=== PATIENT | male | born 1965 | race African-American/Black ===

== ENCOUNTER 2018-04-22 19:33 | Emergency (ER) | payer OTHER ==
--- NOTE | 2018-04-22 21:00 | EDPHYS ---
Physician Documentation [facility] Name: Chang Carty Age: 52 yrs Sex: Male : 1965 Arrival Date: 04/22/2018 Time: 19:35 Bed 12 Private MD: Victor Hugo Howe R ED Physician Delroy Arboleda HPI: 04/22 20:50 This 52 yrs old Black Male presents to ER via Wheelchair with complaints of Right Leg pm1 Injury, Right Leg Pain. 20:50 The patient presents with pain, that is acute. The complaints affect the right inner pm1 thigh. Context: The problem was sustained outdoors, resulted from the patient tripping, on a curb, the patient can fully bear weight, the patient is able to ambulate. Onset: The symptoms/episode began/occurred 2 day(s) ago. Modifying factors: the symptoms are aggravated by movement, weight bearing. Associated signs and symptoms: Pertinent negatives calf tenderness, numbness, swelling, tingling. Treatment prior to arrival includes: over the counter medications, hydrocodone and flexeril. Severity of symptoms: in the emergency department the symptoms are unchanged, despite pain medications - hydrocodone and flexeril. The patient has not experienced similar symptoms in the past. The patient has not recently seen a physician, has an appointment scheduled, Dr. Bernstein in a few days. Patient was walking and tripped on a curb with his right foot. Fell on his right hip area. Has been able to walk for the past 2 days but has pain to right groin area with walking and flexion at right hip. Historical: - Allergies: 20:00 No Known Allergies; ak1 - Home Meds: 20:00 [place] Oral [Active]; Flexeril Oral [Active]; ak1 - PMHx: 20:00 Unable to obtain; ak1 - PSHx: 20:00 None; ak1 - Immunization history:: Adult Immunizations unknown. - Social history:: Smoking status: Patient uses tobacco products, smokes one-half pack cigarettes per day. - Ebola Screening: : No symptoms or risks identified at this time. ROS: 20:50 Constitutional: Negative for fever, chills, and weight loss, Eyes: Negative for injury, pm1 pain, redness, and discharge, ENT: Negative for injury, pain, and discharge, Neck: Negative for injury, pain, and swelling, Cardiovascular: Negative for chest pain, palpitations, and edema, Respiratory: Negative for shortness of breath, cough, wheezing, and pleuritic chest pain, Abdomen/GI: Negative for abdominal pain, nausea, vomiting, diarrhea, and constipation, Back: Negative for injury and pain, : Negative for injury, bleeding, discharge, and swelling. 20:50 Skin: Negative for injury, rash, and discoloration, Neuro: Negative for headache, weakness, numbness, tingling, and seizure. 20:50 MS/extremity: Positive for pain, of the right inner thigh, Negative for decreased range of motion, deformity, swelling. Exam: 20:50 Constitutional: This is a well developed, well nourished patient who is awake, alert, pm1 and in no acute distress. Head/Face: Normocephalic, atraumatic. Eyes: Pupils equal round and reactive to light, extra-ocular motions intact. Lids and lashes normal. Conjunctiva and sclera are non-icteric and not injected. Cornea within normal limits. Periorbital areas with no swelling, redness, or edema. ENT: Nares patent. No nasal discharge, no septal abnormalities noted. Tympanic membranes are normal and external auditory canals are clear. Oropharynx with no redness, swelling, or masses, exudates, or evidence of obstruction, uvula midline. Mucous membranes moist. Neck: Trachea midline, no thyromegaly or masses palpated, and no cervical lymphadenopathy. Supple, full range of motion without nuchal rigidity, or vertebral point tenderness. No Meningismus. Chest/axilla: Normal chest wall appearance and motion. Nontender with no deformity. No lesions are appreciated. Cardiovascular: Regular rate and rhythm with a normal S1 and S2. No gallops, murmurs, or rubs. No pulse deficits. Respiratory: Lungs have equal breath sounds bilaterally, clear to auscultation and percussion. No rales, rhonchi or wheezes noted. No increased work of breathing, no retractions or nasal flaring. Abdomen/GI: Soft, non-tender, with normal bowel sounds. No distension or tympany. No guarding or rebound. No evidence of tenderness throughout. Back: No spinal tenderness. No costovertebral tenderness. Full range of motion. Skin: Warm, dry with normal turgor. Normal color with no rashes, no lesions, and no evidence of cellulitis. 20:50 Musculoskeletal/extremity: Extremities: grossly normal except: noted in the right inner thigh: tenderness, There is no evidence of decreased ROM, deformity, shortening and rotation of right leg. 20:50 Neuro: Orientation: is normal, Motor: moves all fours, Sensation: is normal, no obvious gross deficits. Vital Signs: 19:56 BP 151 / 82; Pulse 90; Resp 18; Temp 97.4(TE); Pulse Ox 97% on R/A; Weight 113.4 kg ak1 (R); Height 6 ft. 3 in. (190.50 cm) (R); Pain 10/10; 19:56 Body Mass Index 31.25 (113.40 kg, 190.50 cm) ak1 MDM: 19:39 Patient medically screened. pm1 20:57 Data reviewed: vital signs. Data interpreted: Pulse oximetry: on room air is 97 %. pm1 Interpretation: normal. 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 04/22 19:53 Order name: Hip Right 2 View XRAY pm1 Administered Medications: 21:09 Drug: morphine 4 mg Route: IM; Site: right gluteus; ak1 21:15 Follow up: Response: No adverse reaction ak1 Disposition: 04/23 05:45 Co-signature as Attending Physician, Delroy Arboleda MD I agree with the assessment and deepak plan of care. Disposition: 04/22/18 20:59 Discharged to Home. Impression: Strain of adductor muscle, fascia and tendon of right thigh. - Condition is Stable. - Discharge Instructions: Adductor Muscle Strain. - Medication Reconciliation Form, Thank You Letter, Prescription Opioid Use form. - Follow up: Emergency Department; When: As needed; Reason: Worsening of condition. Follow up: Private Physician; When: 2 - 3 days; Reason: Recheck today's complaints, Continuance of care, Re-evaluation by your physician. - Problem is new. - Symptoms have improved. Signatures: Dispatcher [employer] EDDelroy Beal MD MD cha Krenek, Amber, RN RN ak1 Marcell Wilcox, STRATIGRAPHER STRATIGRAPHER pm1 Corrections: (The following items were deleted from the chart) 04/22 21:15 20:59 04/22/2018 20:59 Discharged to Home. Impression: Strain of adductor muscle, ak1 fascia and tendon of right thigh. Condition is Stable. Forms are Medication Reconciliation Form, Thank You Letter, Antibiotic Education, Prescription Opioid Use. Follow up: Emergency Department; When: As needed; Reason: Worsening of condition. Follow up: Private Physician; When: 2 - 3 days; Reason: Recheck today's complaints, Continuance of care, Re-evaluation by your physician. Problem is new. Symptoms have improved. pm1
--- NOTE | 2018-04-22 21:00 | ER ---
Nurse's Notes [facility] Name: Chang Carty Age: 52 yrs Sex: Male : 1965 Arrival Date: 04/22/2018 Time: 19:35 Bed 12 Private MD: Victor Hugo Howe R Diagnosis: Strain of adductor muscle, fascia and tendon of right thigh Presentation: 04/22 19:57 Presenting complaint: Patient states: right hip and right groin pain for "couple of ak1 days". Transition of care: patient was not received from another setting of care. Onset of symptoms is unknown. Risk Assessment: Do you want to hurt yourself or someone else? Patient reports no desire to harm self or others. Initial Sepsis Screen: Does the patient meet any 2 criteria? No. Patient's initial sepsis screen is negative. Does the patient have a suspected source of infection? No. Patient's initial sepsis screen is negative. Note pt sees pain management doctor next week. pt takes Flexeril and [place] at home. Care prior to arrival: None. 19:57 Method Of Arrival: Wheelchair ak1 19:57 Acuity: NEYMAR 4 ak1 Triage Assessment: 20:00 General: Appears in no apparent distress. Behavior is calm, cooperative. Pain: ak1 Complains of pain in right hip. EENT: No signs and/or symptoms were reported regarding the EENT system. Neuro: No deficits noted. Cardiovascular: No deficits noted. Respiratory: No deficits noted. GI: No signs and/or symptoms were reported involving the gastrointestinal system. : No signs and/or symptoms were reported regarding the genitourinary system. Derm: No signs and/or symptoms reported regarding the dermatologic system. Musculoskeletal: Reports pain in right hip. Injury Description: fall. Historical: - Allergies: 20:00 No Known Allergies; ak1 - Home Meds: 20:00 [place] Oral [Active]; Flexeril Oral [Active]; ak1 - PMHx: 20:00 Unable to obtain; ak1 - PSHx: 20:00 None; ak1 - Immunization history:: Adult Immunizations unknown. - Social history:: Smoking status: Patient uses tobacco products, smokes one-half pack cigarettes per day. - Ebola Screening: : No symptoms or risks identified at this time. Screenin:01 Abuse screen: Denies threats or abuse. Denies injuries from another. Nutritional ak1 screening: No deficits noted. Tuberculosis screening: No symptoms or risk factors identified. Fall Risk Fall in past 12 months (25 points). Gait- Impaired (20 pts.). Assessment: 20:45 Reassessment: Patient appears in no apparent distress at this time. No changes from ak1 previously documented assessment. Patient and/or family updated on plan of care and expected duration. Pain level reassessed. Patient is alert, oriented x 3, equal unlabored respirations, skin warm/dry/pink. see triage assessment. pt returned from XRay. will continue to monitor. Vital Signs: 19:56 BP 151 / 82; Pulse 90; Resp 18; Temp 97.4(TE); Pulse Ox 97% on R/A; Weight 113.4 kg ak1 (R); Height 6 ft. 3 in. (190.50 cm) (R); Pain 10/10; 19:56 Body Mass Index 31.25 (113.40 kg, 190.50 cm) ak1 ED Course: 19:35 Patient arrived in ED. al2 19:35 Victor Hugo Howe MD is Private Physician. al2 19:39 Marcell Wilcox, JOIE is PHCP. pm1 19:39 Delroy Arboleda MD is Attending Physician. pm1 19:40 Aruna Myrick, DEIDRA is Primary Nurse. ak1 19:56 Arm band placed on Patient placed in an exam room, on a stretcher, Patient notified of ak1 wait time. 19:59 Triage completed. ak1 20:02 Patient has correct armband on for positive identification. Bed in low position. Call ak1 light in reach. Side rails up X 1. Adult w/ patient. Pulse ox on. NIBP on. 20:02 Patient did not have IV access during this emergency room visit. ak1 20:03 No provider procedures requiring assistance completed. ak1 20:29 Hip Right 2 View XRAY In Process Unspecified. EDMS 20:36 X-ray completed. Patient tolerated procedure well. Patient moved back from radiology. az Administered Medications: 21:09 Drug: morphine 4 mg Route: IM; Site: right gluteus; ak1 21:15 Follow up: Response: No adverse reaction ak1 Outcome: 20:59 Discharge ordered by . pm1 21:14 Discharged to home via wheelchair, with family. ak1 21:14 Condition: good 21:14 Discharge instructions given to patient, family, Instructed on discharge instructions, follow up and referral plans. Demonstrated understanding of instructions, follow-up care. 21:15 Patient left the ED. ak1 Signatures: Dispatcher [employer] EDMS Aruna Myrick RN RN ak1 Marcell Wilcox NP [employer]AND[employer] teresa1 Soni Vaughn2 Geetha Terrazas
[2018-04-22] MEDS ORDERED: MORPHINE 4 MG/ML SYR ONE (21:13)
--- NOTE | 2018-04-23 07:20 | RAD REPORT ---
EXAM DESCRIPTION: RAD - Hip Right 2 View - 04/22/2018 9:42 pm CLINICAL HISTORY: Nontraumatic hip and groin pain COMPARISON: None. FINDINGS: AP and frog-leg views of the right hip were obtained. There is no fracture or dislocation . No measurable degenerative change. Pubic symphysis and SI joints within normal range. Vascular shellie cifications are present. No abnormal air density or mass density seen to suspect inguinal hernia base d on plain film. IMPRESSION: Negative right hip examination for acute findings.
== END 2018-04-22 21:15 | disposition home or self-care (01) ==
LOC: ER 19:33
DX: S76.211A Strain of adductor muscle, fascia and tendon of right thigh, initial encounter (principal); W18.09XA Striking against other object with subsequent fall, initial encounter; Y93.01 Activity, walking, marching and hiking; Y92.89 Other specified places as the place of occurrence of the external cause; F17.210 Nicotine dependence, cigarettes, uncomplicated
CPT/HCPCS: 96372; 99283

== ENCOUNTER 2018-06-02 17:10 | Emergency (ER) | payer OTHER ==
[2018-06-02] MEDS ORDERED: HYDROCODONE/APAP 7.5/325 MG TAB ONE (18:14)
--- NOTE | 2018-06-02 18:33 | ER ---
Nurse's Notes [facility] Name: Chang Carty Age: 53 yrs Sex: Male : 1965 Arrival Date: 06/02/2018 Time: 17:15 Bed 12 Private MD: Victor Hugo Howe R Diagnosis: Supracondylar Humeral Fracture Presentation: 06/02 17:32 Presenting complaint: Patient states: "I slipped and fell onto tile around noon". Pt aa5 reports sent me here to get x-rays and when returning to to review x-rays his office was closed. Transition of care: patient was not received from another setting of care. Onset of symptoms was June 02, 2018. Risk Assessment: Do you want to hurt yourself or someone else? Patient reports no desire to harm self or others. Initial Sepsis Screen: Does the patient meet any 2 criteria? No. Patient's initial sepsis screen is negative. Does the patient have a suspected source of infection? No. Patient's initial sepsis screen is negative. Care prior to arrival: None. 17:32 Method Of Arrival: Wheelchair aa5 17:32 Acuity: NEYMAR 4 aa5 Historical: - Allergies: 17:34 No Known Allergies; aa5 - PMHx: 17:34 Diabetes - IDDM; CVA; Hypertension; aa5 - Immunization history:: Adult Immunizations unknown. - Social history:: Smoking status: Patient uses tobacco products, smokes one-half pack cigarettes per day. - Ebola Screening: : No symptoms or risks identified at this time. Screenin:07 Abuse screen: Denies threats or abuse. Nutritional screening: No deficits noted. la1 Tuberculosis screening: No symptoms or risk factors identified. Fall Risk None identified. Assessment: 18:06 General: Appears in no apparent distress. Behavior is calm, cooperative. Pain: la1 Complains of pain in left elbow. Neuro: Level of Consciousness is awake, alert, obeys commands, Oriented to person, place, time, situation. Cardiovascular: Capillary refill < 3 seconds Patient's skin is warm and dry. Respiratory: Airway is patent Respiratory effort is even, unlabored, Respiratory pattern is regular, symmetrical. GI: No signs and/or symptoms were reported involving the gastrointestinal system. : No signs and/or symptoms were reported regarding the genitourinary system. Musculoskeletal: Circulation, motion, and sensation intact. Capillary refill < 3 seconds, is brisk, in bilateral fingers. Range of motion: limited in left shoulder and left elbow. Vital Signs: 17:34 BP 144 / 93; Pulse 86; Resp 16 S; Temp 97.0(TE); Pulse Ox 98% on R/A; Weight 113.4 kg aa5 (R); Height 6 ft. 3 in. (190.50 cm) (R); Pain 10/10; 17:34 Body Mass Index 31.25 (113.40 kg, 190.50 cm) aa5 ED Course: 17:15 Patient arrived in ED. dl4 17:15 Victor Hugo Howe MD is Private Physician. dl4 17:32 Arm band placed on. aa5 17:34 Triage completed. aa5 17:40 [facility] kb 17:40 Donavon Fisher MD is Attending Physician. kb 17:41 Darci Verde, DEIDRA is Primary Nurse. la1 18:08 Call light in reach. la1 18:30 Orthoglass splint: CMS Intact and capillary refill less than 2. ag 18:39 No provider procedures requiring assistance completed. Patient did not have IV access la1 during this emergency room visit. Administered Medications: 18:06 Drug: [place] (7.5 mg-325 mg) 1 tabs Route: PO; la1 18:32 Follow up: Response: No adverse reaction; Pain is decreased ss Outcome: 18:33 Discharge ordered by MD. kb 18:39 Discharged to home via wheelchair. la1 18:39 Condition: stable 18:39 Discharge instructions given to patient, Instructed on discharge instructions, follow up and referral plans. medication usage, Demonstrated understanding of instructions, follow-up care, medications, Prescriptions given X 1. 18:39 Patient left the ED. la1 Signatures: Alana Knox FNP-C FNP-Ckb Calderon, Audri, RN RN aa5 Massiel Farrell RN RN ss Darci Verde RN RN la1 Jaleesa Marley David dl4 Corrections: (The following items were deleted from the chart) 17:38 17:32 Presenting complaint: Patient states: "I slipped and fell onto tile around noon". aa5 Pt reports sent me here to get x-rays and when returning to to review x-rays his office was closed. aa5
--- NOTE | 2018-06-02 18:33 | EDPHYS ---
Physician Documentation [facility] Name: Chang Carty Age: 53 yrs Sex: Male : 1965 Arrival Date: 06/02/2018 Time: 17:15 Bed 12 Private MD: Victor Hugo Howe R ED Physician Donavon Fisher HPI: 06/02 18:28 This 53 yrs old Black Male presents to ER via Wheelchair with complaints of Arm Injury. kb 18:28 The patient or guardian complains of decreased range of motion, injury, pain, that is kb acute, swelling, tenderness. The complaints affect the left elbow. Context: The problem was sustained at home, resulted from a fall. Onset: The symptoms/episode began/occurred at 12:00. Treatment prior to arrival includes: no previous treatment. Modifying factors: The symptoms are alleviated by nothing. the symptoms are aggravated by bending arm. Associated signs and symptoms: Pertinent positives: decreased range of motion, pain, swelling. Severity of symptoms: At their worst the symptoms were moderate, in the emergency department the symptoms are unchanged. The patient has not experienced similar symptoms in the past. The patient has been recently seen by a physician: the patient's primary care provider, with similar presenting complaints. Pt fell today at 1200 onto left elbow. Went to PCP and had outpatient x-ray done, but PCP's office was closed when he went to get results. . Historical: - Allergies: 17:34 No Known Allergies; aa5 - PMHx: 17:34 Diabetes - IDDM; CVA; Hypertension; aa5 - Immunization history:: Adult Immunizations unknown. - Social history:: Smoking status: Patient uses tobacco products, smokes one-half pack cigarettes per day. - Ebola Screening: : No symptoms or risks identified at this time. ROS: 18:25 Constitutional: Negative for fever, chills, and weight loss, Neck: Negative for injury, kb pain, and swelling, Cardiovascular: Negative for chest pain, palpitations, and edema, Respiratory: Negative for shortness of breath, cough, wheezing, and pleuritic chest pain, Abdomen/GI: Negative for abdominal pain, nausea, vomiting, diarrhea, and constipation, Skin: Negative for injury, rash, and discoloration, Neuro: Negative for headache, weakness, numbness, tingling, and seizure. 18:25 MS/extremity: Positive for injury or acute deformity, decreased range of motion, pain, swelling, tenderness, of the left elbow. Exam: 18:25 Constitutional: This is a well developed, well nourished patient who is awake, alert, kb and in no acute distress. Head/Face: Normocephalic, atraumatic. Chest/axilla: Normal chest wall appearance and motion. Nontender with no deformity. No lesions are appreciated. Cardiovascular: Regular rate and rhythm with a normal S1 and S2. No gallops, murmurs, or rubs. Normal PMI, no JVD. No pulse deficits. Respiratory: Lungs have equal breath sounds bilaterally, clear to auscultation and percussion. No rales, rhonchi or wheezes noted. No increased work of breathing, no retractions or nasal flaring. Abdomen/GI: Soft, non-tender, with normal bowel sounds. No distension or tympany. No guarding or rebound. No evidence of tenderness throughout. Skin: Warm, dry with normal turgor. Normal color with no rashes, no lesions, and no evidence of cellulitis. 18:25 Musculoskeletal/extremity: Extremities: grossly normal except: noted in the left elbow: decreased ROM, pain, swelling, tenderness, ROM: limited active range of motion, in the left arm and left elbow, Circulation is intact in all extremities. Sensation intact. 18:25 Neuro: Orientation: is normal, to person, place, time \T\ situation. Mentation: is normal, Memory: is normal, Motor: no acute changes, neuro exam limited due to previous CVA. Pt reports decreased ROM in elbow from normal. 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 . Vital Signs: 17:34 BP 144 / 93; Pulse 86; Resp 16 S; Temp 97.0(TE); Pulse Ox 98% on R/A; Weight 113.4 kg aa5 (R); Height 6 ft. 3 in. (190.50 cm) (R); Pain 10/10; 17:34 Body Mass Index 31.25 (113.40 kg, 190.50 cm) aa5 MDM: 17:40 Patient medically screened. kb 18:28 Data reviewed: vital signs, nurses notes. Data interpreted: Pulse oximetry: on room air kb is 98 %. Interpretation: normal. 18:31 Counseling: I had a detailed discussion with the patient and/or guardian regarding: the kb historical points, exam findings, and any diagnostic results supporting the discharge/admit diagnosis, radiology results, the need for outpatient follow up, a orthopedic surgeon, to return to the emergency department if symptoms worsen or persist or if there are any questions or concerns that arise at home. 06/02 18:01 Order name: Sling; Complete Time: 18:32 kb 06/02 18:01 Order name: Splint - Elbow - Posterior; Complete Time: 18:32 kb Administered Medications: 18:06 Drug: [place] (7.5 mg-325 mg) 1 tabs Route: PO; la1 18:32 Follow up: Response: No adverse reaction; Pain is decreased ss Disposition: 19:06 Co-signature as Attending Physician, Donavon Fisher MD. rn Disposition: 06/02/18 18:33 Discharged to Home. Impression: Supracondylar Humeral Fracture. - Condition is Stable. - Discharge Instructions: Humerus Fracture Treated With Immobilization, [id number]. - Prescriptions for Tylenol- Codeine #3 300-30 mg Oral Tablet - take 1 tablet by ORAL route every 6 hours As needed; 15 tablet. - Medication Reconciliation Form, Thank You Letter, Antibiotic Education, Prescription Opioid Use form. - Follow up: Emergency Department; When: As needed; Reason: Worsening of condition. Follow up: Private Physician; When: 2 - 3 days; Reason: Recheck today's complaints, Continuance of care, Re-evaluation by your physician. Signatures: Alana Knox, REFINING SUPERVISOR-C REFINING SUPERVISOR-Ckb Donavon Fisher MD MD rn Calderon, Audri RN RN aa5 Darci Verde RN RN la1 Massiel Farrell RN ss Corrections: (The following items were deleted from the chart) 18:39 18:33 06/02/2018 18:33 Discharged to Home. Impression: Supracondylar Humeral Fracture. la1 Condition is Stable. Forms are Medication Reconciliation Form, Thank You Letter, Antibiotic Education, Prescription Opioid Use. Follow up: Emergency Department; When: As needed; Reason: Worsening of condition. Follow up: Private Physician; When: 2 - 3 days; Reason: Recheck today's complaints, Continuance of care, Re-evaluation by your physician. kb
== END 2018-06-02 18:39 | disposition home or self-care (01) ==
LOC: ER 17:10
PROC: 2W39X1Z Immobilization of Left Upper Extremity using Splint (ICD-10-PCS; principal; 2018-06-02)
DX: S42.412A Displaced simple supracondylar fracture without intercondylar fracture of left humerus, initial encounter for closed fracture (principal); W01.0XXA Fall on same level from slipping, tripping and stumbling without subsequent striking against object, initial encounter; Y92.009 Unspecified place in unspecified non-institutional (private) residence as the place of occurrence of the external cause; F17.210 Nicotine dependence, cigarettes, uncomplicated
CPT/HCPCS: 99283

== ENCOUNTER 2020-04-24 11:26 | Emergency (ER) | payer OTHER ==
--- OUTSIDE RECORDS SUMMARY | 2020-04-24 11:30 | XMS REPORT | Continuity of Care Document ---
:1965 Author Organization [facility] t Address [address] [place] [address] Care Team Providers Name Role Phone Jeremy GARCIA Primary Care Physician Valencia Briceno Attending Clinician Doctor Unassigned, Name Attending Clinician Unavailable Polly GARICA Attending Clinician Payers Payer Name Policy Type Policy Effective Expiration Source Number Date Date TEXANPLUSTEXANPLUS [id number] 2018 Roshan read [id number] 2018-Pr 00:00:00 M ethodist esentHMO Problems Condition Condition Condition Status Onset Resolution Last Treating Co mments Source Name Details Category Date Date Treatment Clinician Date Post-opera Post-opera Disease Active [place] tive state tive state 2-09 Me thodi 00:00: st 00 Closed Closed Disease Active [place] fracture fracture 2-07 Method i of left of left 00:00: st distal distal 00 humerus humerus Closed Closed Disease Active [place] supracondy supracondy 1-30 Me thodi lar lar 00:00: st fracture fracture 00 of left of left elbow elbow Allergies, Adverse Reactions, Alerts Allergy Allergy Status Severity Reaction(s) Onset Inactive Treating Comm ents Source Name Type Date Date Clinician Penicill Propensi Active Nausea Roshan read ins ty to 1-30 and Methodi adverse 00:00: vomiting st reaction 00 s to drug Family History Family Member Diagnosis Comments Start Date Stop Date Source Natural brother Diabetes [facility] [place] [place] ethodist Natural father Heart disease [place] Yazdan[place] Natural mother Diabetes [facility] thodist Natural mother Heart disease Humberto Sylvester Social History Social Habit Start Date Stop Date Quantity Comments Source History of tobacco Current smoker [place] use History [facility] Meth odist Alcohol Std Drinks History [facility] Meth odist Alcohol Binge Sex Assigned At [facility] [place] [place] ethodist Cigarettes smoked 2019-07-22 2019-07-22 Humberto Sylvester current (pack per 00:00:00 00:00:00 day) - Reported Cigarette 2019-07-22 2019-07-22 Humberto Dubois ist pack-years 00:00:00 00:00:00 Tobacco use and 2019-07-22 2019-07-22 Never used Paul Akbar ethodist exposure 00:00:00 00:00:00 Alcohol intake 2019-07-22 2019-07-22 Current Paul thodist 00:00:00 00:00:00 non-drinker of alcohol (finding) History SDAZ 2018-07-02 2018-07-02 1 Humberto Griffin odist Alcohol Frequency 00:00:00 00:00:00 Smoking Status Start Date Stop Date Source Former smoker 2019-07-22 00:00:00 2019-07-22 00:00:00 Humberto Sylvester Medications Ordered Filled Start Stop Current Ordering Indication Dosage Frequency Signature Comments Components Source Medication Medication Date Date Medication? Clinician (SIG) Name Name lisinopril 2020-0 Yes 20mg Q.5D Take 20 mg [place] (PRINIVIL,Z - by mouth 2 Me thodi ESTRIL) 20 10:56: (two) st mg tablet 19 times a day. amLODIPine 2020-0 Yes 10mg QD Take 10 mg [place] (NORVASC) - by mouth Method i 10 mg 10:56: every st tablet 19 morning. metoprolol 2020-0 Yes 50mg Q.5D Take 50 mg [place] tartrate 2-26 by mouth 2 Metho di (LOPRESSOR) 10:56: (two) st 50 mg 19 times a tablet day. clopidogrel 2020-0 Yes 75mg QD Take 75 mg Paul (PLAVIX) 75 2-26 by mouth Meth denia mg tablet 10:56: daily. st 19 simvastatin 2020-0 Yes 40mg QD Take 40 mg Paul (ZOCOR) 40 2- by mouth Metho di MG tablet 10:56: nightly. st 19 aspirin 2020-0 Yes 81mg QD Take 81 mg [place] (ECOTRIN) 2-26 by mouth Method i 81 MG 10:56: daily. st enteric 19 coated tablet NOVOLOG 2020-0 Yes [id number] Inject Roddy billings U-100 2-26 [id number] under the Met hodi INSULIN 10:56: 3D skin 3 st ASPART SUBQ 19 (three) times a day with meals. Sliding scale insulin insulin 2020-0 Yes 25U QD Inject 25 [place] on detemir 2-26 Units Methodi (LEVEMIR 10:56: under the st U-100 19 skin every INSULIN morning. SUBQ) Procedures This patient has no known procedures. Plan of Care Planned Activity Planned Date Details Comments Source Future Scheduled 2019-12-26 INFLUENZA VACCINE [place] [facility] Test 00:00:00 [code = INFLUENZA VACCINE] Future Scheduled 2017 COLONOSCOPY SCREENING [place] [facility] Test 00:00:00 [code = COLONOSCOPY SCREENING] Future Scheduled 2017 SHINGLES VACCINES [place] [facility] 00:00:00 (#1) [code = SHINGLES VACCINES (#1)] Encounters Start End Encounter Admission Attending Care Care Encounter Source Date/Time Date/Time Type Type Clinicians Facility Department ID 2019-08-02 2019-08-02 Emergency Annia, [place] [facility] [id number] 16:58:18 18:02:00 Valencia Lara [id number] [place] [id number] [place] [id number] 2019-08-02 2019-08-02 Orders Doctor AUGIE [id number] 00:00:00 00:00:00 Only Unassigned, SAMANTHA [id number] [place] [facility] [id number] 2019-07-22 2019-07-22 Outpatient POLLY [facility] [id number] [address] [place] [address] 00:00:00 00:00:[address] PAM [address] Results This patient has no known results.
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
[2020-04-24] MEDS ORDERED: DIAZEPAM 5 MG TABLET ONE (13:06)
[2020-04-24] MEDS ORDERED: KETOROLAC 30 MG/ML INJ ONE (13:06)
--- NOTE | 2020-04-24 13:36 | RAD REPORT ---
EXAM DESCRIPTION: RAD - Lumbar Spine 3 Views - 04/24/2020 1:28 pm CLINICAL HISTORY: fall COMPARISON: No comparisons FINDINGS: A three-view lumbar spine examination was performed. Lumbar bodies are normal in height and normal in AP alignment. There is a mild right lateral tilt of the lumbar spine as part of a mild right convex thoracolumbar rotoscoliosis. No fracture or acute bon y process seen. No disc space narrowing. Endplate spurring seen most prominent anterior L5. Patient h as prominent mid and lower lumbar facet joint degenerative change. No pars defects identified. IMPRESSION: Lumbar spine degenerative changes are present as detailed. No fracture or acute finding seen.
--- NOTE | 2020-04-24 13:37 | RAD REPORT ---
EXAM DESCRIPTION: RAD - Pelvis - 04/24/2020 1:28 pm CLINICAL HISTORY: fall COMPARISON: No comparisons TECHNIQUE: AP imaging of the pelvis was obtained. FINDINGS: No fracture of the bony pelvis. No fracture, dislocation or other acute hip joint finding. No significant SI joint findings. No soft tissue abnormality. IMPRESSION: Negative pelvis for acute or significant findings.
--- NOTE | 2020-04-24 13:43 | RAD REPORT ---
EXAM DESCRIPTION: RAD - Hip Left 2 View - 04/24/2020 1:28 pm CLINICAL HISTORY: hip pain COMPARISON: No comparisons FINDINGS: AP and frogleg views of the left hip were obtained. There is no fracture or dislocation. No acute or destructive bony process seen. No suspicious soft tissue finding. Arterial calcifications are present more prominent than typically seen. IMPRESSION: Negative left hip examination for acute findings.
--- NOTE | 2020-04-24 14:35 | EDPHYS ---
Physician Documentation [facility] Name: Chang Carty Age: 54 yrs Sex: Male : 1965 Arrival Date: 04/24/2020 Time: 11:31 Bed 17 Private MD: ED Physician Donavon Fisher HPI: 04/24 12:11 This 54 yrs old Black Male presents to ER via Wheelchair with complaints of Back Pain, jmm Elbow Injury - swelling. 12:11 The patient presents with pain that is acute. Onset: The symptoms/episode jmm began/occurred acutely, yesterday. The pain does not radiate. This is a 54 year old male with a history of cva, dm, htn that presents to the ED with complaints left elbow pain, left sided back pain and left hip pain after slipping and falling on his left side. Denies head injury. This occurred yesterday. . Historical: - Allergies: 12:01 PENICILLINS; iw - PMHx: 12:01 CVA; Diabetes - IDDM; Hypertension; iw - PSHx: 12:02 left arm; iw - Immunization history:: Adult Immunizations not up to date. - Social history:: Smoking status: Patient reports the use of cigarette tobacco products, smokes one-half pack cigarettes per day. ROS: 12:11 Constitutional: Negative for fever, chills, and weight loss, Cardiovascular: Negative jmm for chest pain, palpitations, and edema, Respiratory: Negative for shortness of breath, cough, wheezing, and pleuritic chest pain. 12:11 Back: Positive for pain with movement. 12:11 All other systems are negative. Exam: 12:11 Constitutional: This is a well developed, well nourished patient who is awake, alert, jmm and in no acute distress. Head/Face: atraumatic. Eyes: EOMI, no conjunctival erythema appreciated ENT: Moist Mucus Membranes Neck: Trachea midline, Supple Chest/axilla: Normal chest wall appearance and motion. Cardiovascular: Regular rate and rhythm. No edema appreciated Respiratory: Normal respirations, no respiratory distress appreciated Abdomen/GI: Non distended, soft 12:11 Back: vertebral tenderness, is not appreciated, left sided paraspinal tenderness noted . 12:11 Musculoskeletal/extremity: FROM appreciated to the left elbow, supracondylar ttp, full radial pulse, full spotter, NVI. 12:11 Skin: Appearance: Color: normal in color. 12:11 Neuro: Orientation: is normal, Mentation: is normal, Memory: is normal. 12:11 Psych: Behavior/mood is pleasant, cooperative. Vital Signs: 11:56 BP 139 / 76; Pulse 78; Resp 16 S; Temp 97.8(TE); Pulse Ox 97% on R/A; Weight 114.76 kg; iw Height 6 ft. 3 in. (190.50 cm); Pain 7/10; 12:45 BP 129 / 75; Pulse 76; Resp 17; Pulse Ox 97% ; rb3 14:00 BP 131 / 78; Pulse 72; Resp 18; Pulse Ox 100% ; rb3 14:46 BP 127 / 86; Pulse 72; Resp 16 S; Pulse Ox 100% on R/A; ca1 11:56 Body Mass Index 31.62 (114.76 kg, 190.50 cm) iw MDM: 12:11 Patient medically screened. [facility] 14:33 Data reviewed: vital signs, nurses notes. Counseling: I had a detailed discussion with tracey the patient and/or guardian regarding: the historical points, exam findings, and any diagnostic results supporting the discharge/admit diagnosis, radiology results, the need for outpatient follow up, to return to the emergency department if symptoms worsen or persist or if there are any questions or concerns that arise at home. ED course: Patient is alert and non toxic in appearance in the ED. Patient is advised to follow up with pcp for reevaluation. Patient is otherwise given strict return precautions. Patient understood and agrees with the plan of care. . 04/24 12:15 Order name: Pelvis XRAY; Complete Time: 13:50 [facility] 04/24 12:15 Order name: Hip Left 2 View XRAY; Complete Time: 13:50 [facility] 04/24 12:15 Order name: Lumbar Spine (3 Views) XRAY; Complete Time: 13:50 [facility] Administered Medications: 12:57 Drug: Ketorolac 30 mg Route: IM; Site: right deltoid; rb3 12:57 Drug: Valium 5 mg Route: PO; rb3 Disposition: 15:42 Co-signature as Attending Physician, Donavon Fisher MD. rn Disposition: 04/24/20 14:34 Discharged to Home. Impression: Strain of muscle and tendon of back wall of thorax, Strain of muscle, fascia and tendon of abdomen, lower back and pelvis, Contusion of left elbow. - Condition is Stable. - Discharge Instructions: Muscle Strain, Thoracic Strain. - Prescriptions for orphenadrine citrate 100 mg Oral Tablet Sustained Release - take 1 tablet by ORAL route 2 times per day As needed; 20 tablet. - Medication Reconciliation Form, Thank You Letter, Antibiotic Education, Prescription Opioid Use form. - Follow up: Private Physician; When: 2 - 3 days; Reason: Recheck today's complaints, Continuance of care, Re-evaluation by your physician. Signatures: Dispatcher [employer] EDMS Arie Vega PA PA jmm Williams, Irene, DEIDRA RN iw Donavon Fisher MD MD rn Acob, Mary RN RN ca1 Lou Hutson RN RN rb3 Corrections: (The following items were deleted from the chart) 14:50 14:34 04/24/2020 14:34 Discharged to Home. Impression: Strain of muscle and tendon of ca1 back wall of thorax; Strain of muscle, fascia and tendon of abdomen, lower back and pelvis; Contusion of left elbow. Condition is Stable. Forms are Medication Reconciliation Form, Thank You Letter, Antibiotic Education, Prescription Opioid Use. Follow up: Private Physician; When: 2 - 3 days; Reason: Recheck today's complaints, Continuance of care, Re-evaluation by your physician. tracey
--- NOTE | 2020-04-24 14:35 | ER ---
Nurse's Notes [facility] Name: Chang Carty Age: 54 yrs Sex: Male : 1965 Arrival Date: 04/24/2020 Time: 11:31 Bed 17 Private MD: Diagnosis: Strain of muscle and tendon of back wall of thorax;Strain of muscle, fascia and tendon of abdomen, lower back and pelvis;Contusion of left elbow Presentation: 04/24 11:56 Chief complaint: Patient states: pt slipped and fell on some oil while stepping out of his truck yesterday , fell onto left side, has pain to left elbow, left lower back and left hip. Coronavirus screen: At this time, the client does not indicate any symptoms associated with coronavirus-19. Ebola Screen: Patient negative for fever greater than or equal to 101.5 degrees Fahrenheit, and additional compatible Ebola Virus Disease symptoms Patient denies exposure to infectious person. Patient denies travel to an Ebola-affected area in the 21 days before illness onset. No symptoms or risks identified at this time. Initial Sepsis Screen: Does the patient meet any 2 criteria? No. Patient's initial sepsis screen is negative. Does the patient have a suspected source of infection? No. Patient's initial sepsis screen is negative. Risk Assessment: Do you want to hurt yourself or someone else? Patient reports no desire to harm self or others. Onset of symptoms was April 23, 2020. 11:56 Method Of Arrival: Wheelchair 11:56 Acuity: NEYMAR 4 iw Historical: - Allergies: 12:01 PENICILLINS; iw - PMHx: 12:01 CVA; Diabetes - IDDM; Hypertension; iw - PSHx: 12:02 left arm; iw - Immunization history:: Adult Immunizations not up to date. - Social history:: Smoking status: Patient reports the use of cigarette tobacco products, smokes one-half pack cigarettes per day. Screenin:50 Abuse screen: Denies threats or abuse. Nutritional screening: No deficits noted. rb3 Tuberculosis screening: No symptoms or risk factors identified. Fall Risk Fall in past 12 months (25 points). Secondary diagnosis (15 points) CVA, No IV (0 pts). Ambulatory Aid- None/Bed Rest/Nurse Assist (0 pts). Gait- Normal/Bed Rest/Wheelchair (0 pts) Mental Status- Oriented to own ability (0 pts). Total Munoz Fall Scale indicates Low Risk Score (25-44 pts). Fall prevention measures have been instituted. Side Rails Up X 2 Placed close to Nursing Station 1:1 attendant Assigned to Pt. Frequent Obs/Assesments occuring As available Patient and Family Educated on Fall Prevention Program and strategies. Assessment: 11:50 General: Appears in no apparent distress. comfortable, Behavior is calm, cooperative. rb3 Pain: Complains of pain in left elbow, low back, left hip Pain currently is 7 out of 10 on a pain scale. Pain began 1 day ago. Neuro: Level of Consciousness is awake, alert, obeys commands, Oriented to person, place, time, situation. Cardiovascular: Capillary refill < 3 seconds. Respiratory: Airway is patent Respiratory effort is even, unlabored, Respiratory pattern is regular, symmetrical. GI: No signs and/or symptoms were reported involving the gastrointestinal system. : No signs and/or symptoms were reported regarding the genitourinary system. Derm: Skin is dry, Skin is normal, Skin temperature is warm. Musculoskeletal: Range of motion: limited in left arm due to previous stroke. 12:50 Reassessment: Patient appears in no apparent distress at this time. No changes from rb3 previously documented assessment. 12:58 Reassessment: Pt. is going to x-ray. rb3 14:00 Reassessment: Patient appears in no apparent distress at this time. Patient and/or rb3 family updated on plan of care and expected duration. Pain level reassessed. Patient is alert, oriented x 3, equal unlabored respirations, skin warm/dry/pink. 14:46 Reassessment: Patient appears in no apparent distress at this time. Patient is alert, ca1 oriented x 3, equal unlabored respirations, skin warm/dry/pink. Vital Signs: 11:56 BP 139 / 76; Pulse 78; Resp 16 S; Temp 97.8(TE); Pulse Ox 97% on R/A; Weight 114.76 kg; iw Height 6 ft. 3 in. (190.50 cm); Pain 7/10; 12:45 BP 129 / 75; Pulse 76; Resp 17; Pulse Ox 97% ; rb3 14:00 BP 131 / 78; Pulse 72; Resp 18; Pulse Ox 100% ; rb3 14:46 BP 127 / 86; Pulse 72; Resp 16 S; Pulse Ox 100% on R/A; ca1 11:56 Body Mass Index 31.62 (114.76 kg, 190.50 cm) ED Course: 11:31 Patient arrived in ED. as 11:49 Mary Moody, RN is Primary Nurse. ca1 11:50 Patient has correct armband on for positive identification. Bed in low position. Call rb3 light in reach. Side rails up X 1. Pulse ox on. NIBP on. 12:00 Triage completed. iw 12:01 Arm band placed on. iw 12:08 Arie Vega PA is PHCP. [facility] 12:08 Donavon Fisher MD is Attending Physician. [facility] 12:57 Lou Hutson, RN is Primary Nurse. rb3 13:28 Pelvis XRAY In Process Unspecified. EDMS 13:28 Hip Left 2 View XRAY In Process Unspecified. EDMS 13:28 Lumbar Spine (3 Views) XRAY In Process Unspecified. EDMS 14:49 No provider procedures requiring assistance completed. Patient did not have IV access ca1 during this emergency room visit. Administered Medications: 12:57 Drug: Ketorolac 30 mg Route: IM; Site: right deltoid; rb3 12:57 Drug: Valium 5 mg Route: PO; rb3 Outcome: 14:34 Discharge ordered by . [facility] 14:49 Discharged to home ambulatory. ca1 14:49 Condition: stable 14:49 Discharge instructions given to patient, Instructed on discharge instructions, Demonstrated understanding of instructions, follow-up care, medications, Prescriptions given X 1. 14:50 Patient left the ED. ca1 Signatures: Dispatcher [employer] EDMS Arie Vega PA PA jmm Martinez, Amelia as Madeleine Mathews RN RN Mary Moody RN RN ca1 Lou Hutson, DEIDRA RN rb3 Corrections: (The following items were deleted from the chart) 12:26 11:50 Musculoskeletal: Range of motion: limited in left arm rb3 rb3 14:20 13:45 BP 131 / 78; Pulse 72bpm; Resp 18bpm; Pulse Ox 100%; rb3 rb3
[2020-04-24 17:51] VITALS: TEMP 97.8
[2020-04-24 17:54] VITALS: O2SAT 100
[2020-04-24 17:56] VITALS: BP 127/86
== END 2020-04-24 14:50 | disposition home or self-care (01) ==
LOC: ER 11:26
DX: S29.012A Strain of muscle and tendon of back wall of thorax, initial encounter (principal); S39.011A Strain of muscle, fascia and tendon of abdomen, initial encounter; S39.012A Strain of muscle, fascia and tendon of lower back, initial encounter; S39.013A Strain of muscle, fascia and tendon of pelvis, initial encounter; S50.02XA Contusion of left elbow, initial encounter; E11.9 Type 2 diabetes mellitus without complications; I10 Essential (primary) hypertension; Z86.73 Personal history of transient ischemic attack (TIA), and cerebral infarction without residual deficits; Z79.4 Long term (current) use of insulin; F17.210 Nicotine dependence, cigarettes, uncomplicated; W01.0XXA Fall on same level from slipping, tripping and stumbling without subsequent striking against object, initial encounter
CPT/HCPCS: 72100; 72170; 96372; 99284

== ENCOUNTER 2023-03-01 15:59 | Emergency (ER) | payer OTHER ==
--- OUTSIDE RECORDS SUMMARY | 2023-03-01 16:05 | XMS REPORT | Continuity of Care Document ---
:1965 Author Organization [facility] t Address [address] [place] [address] Care Team Providers Name Role Phone Jeremy GARCIA, Victor Hugo Primary Care Physician [phone] RICHARD CASON Attending Clinician Unavailable Richard Cason PA-C Attending Clinician Doctor Unassigned, [place] Attending Clinician Unavailable MARLA CHOW Attending Clinician Unavailable Marla Chow DO Attending Clinician Aldair Briceno Attending Clinician PAM MATIAS Attending Clinician Unavailable Dayami-Deano_A_AH Attending Clinician Unavailable RICHARD CASON Admitting Clinician Unavailable MARLA CHOW Admitting Clinician Unavailable Dayami-Varsha_A_AH Admitting Clinician Unavailable Payers Payer Name Policy Type Policy Number Effective Date Expiration Date Hillary haynes Cocodot [id number] 2019spring 00:00:00 [facility] [place] [facility] [id number] [facility]/ADVANT AGE - HMO) Problems Condition Condition Condition Status Onset Resolution Last Treating Co mments Source Name Details Category Date Date Treatment Clinician Date Post-opera Post-opera Disease Active M ethodi tive state tive state 2 st 00:00: Hospita 00 l Closed Closed Disease Active [facility] fracture fracture [address] of left of left 00:00: Hospita distal distal 00 l humerus humerus Closed Closed Disease Active [facility] supracondy supracondy 1-30 st lar lar 00:00: Hospita fracture fracture 00 l of left of left elbow elbow Allergies, Adverse Reactions, Alerts Allergy Allergy Status Severity Reaction(s) Onset Inactive Treating Comm ents Source Name Type Date Date Clinician Julia Pate Active Nausea Method i ins ty to 1-[address] adverse 00:00: vomiting Hospita reaction 00 l s to drug PENICILL Drug Active N/V 2016-05 Univers INS Class 2-15 ity of 00:00: [place] 00 Medical Branch Penicill Propensi Active Nausea 2016-05 Univer s ins ty to and/or 2-15 ity of adverse Vomiting 00:00: [place] reaction 00 Medical s Branch Family History Family Member Diagnosis Comments Start Date Stop Date Source Natural brother Diabetes [facility] Natural father Heart disease [facility] Natural mother Diabetes [facility] Natural mother Heart disease [facility] Social History Social Habit Start Date Stop Date Quantity Comments Source History SDOH [facility] Alcohol Std Drinks Hospit al History SDAZ [facility] Alcohol Binge Hospital History of tobacco Cigarette Smoker [facility] use Hospital Alcohol intake 2019-07-22 2019-07-22 Current [facility] 00:00:00 00:00:00 non-drinker of Hospital alcohol (finding) History SDOH 2019-07-22 2019-07-22 1 [facility] Alcohol Frequency 00:00:00 00:00:00 Hospita l Tobacco use and 2018-07-02 2018-07-02 Smokeless tobacco [facility] exposure 00:00:00 00:00:00 non-user Hospital Cigarettes smoked 2018-07-02 2018-07-[address] current (pack per 00:00:00 00:00:00 Hospita l day) - Reported Cigarette 2018-07-02 2018-07-02 [facility] pack-years 00:00:00 00:00:00 Hospital Sex Assigned At [birth year] [facility] 00:00:00 00:00:00 Hospital Smoking Status Start Date Stop Date Source Ex-smoker 2018-07-02 00:00:00 2018-07-02 [facility] 2017-05-10 00:00:00 [facility] [place] [facility] Medications Ordered Filled Start Stop Current Ordering Indication Dosage Frequency Signature Comments Components Source Medication Medication Date Date Medication? Clinician (SIG) Name Name cephALEXin 2021-05- No [id number] 500mg Take 1 Univers (KEFLEX) 0-04 1012 [id number] capsule by it y of 500 mg 00:00: 04:59 mouth 4 [place] capsule 00 :00 (four) Medical times Branch daily for 7 days. ibuprofen 2020-0 Yes [id number] 600mg Take 1 U nivers 600 mg 3-08 tablet by ity of tablet 00:00: mouth [place] 00 every 6 Medical (six) Branch hours as needed for Pain (scale 4-6). ibuprofen 2020-0 Yes [id number] 600mg Take 1 U nivers 600 mg 3-08 tablet by ity of tablet 00:00: mouth [place] 00 every 6 Medical (six) Branch hours as needed for Pain (scale 4-6). ibuprofen 2020-0 Yes [id number] 600mg Take 1 U nivers 600 mg 3-08 tablet by ity of tablet 00:00: mouth [place] 00 every 6 Medical (six) Branch hours as needed for Pain (scale 4-6). lisinopril 2020-0 Yes 20mg Q.5D Take 20 mg M ethodi (PRINIVIL,Z 2-[address] ESTRIL) 20 10:56: (two) Hospit a mg tablet 19 times a l day. amLODIPine 2020-0 Yes 10mg QD Take 10 mg M ethodi (NORVASC) 2-[address] 10 mg 10:56: every Hospita tablet 19 morning. l metoprolol 2020-0 Yes 50mg Q.5D Take 50 mg M ethodi tartrate 2-[address] (LOPRESSOR) 10:56: (two) Hospi ta 50 mg 19 times a l tablet day. clopidogrel 2020-0 Yes 75mg QD Take 75 mg Methodi (PLAVIX) 75 2-[address] mg tablet 10:56: daily. Hospit a 19 l simvastatin 2020-0 Yes 40mg QD Take 40 mg Methodi (ZOCOR) 40 2-[address] MG tablet 10:56: nightly. Hosp shila 19 l aspirin 2020-0 Yes 81mg QD Take 81 mg Meth denia (ECOTRIN) 2-[address] 81 MG 10:56: daily. Hospita enteric 19 l coated tablet NOVOLOG 2020-0 Yes [id number] Inject Me thodi U-100 2-[id number] INSULIN 10:56: 3D skin 3 Hospita ASPART SUBQ 19 (three) l times a day with meals. Sliding scale insulin insulin Yes 25U QD Inject 25 Metho di detemir 2-[address] (LEVEMIR 10:56: under the Hosp shila U-100 19 skin every l INSULIN morning. SUBQ) acetaminoph Yes [id number] 1{tbl} Take 1 Univers en-codeine 1-11 [id number] tablet by it y of (TYLENOL-CO 00:00: mouth [place] DEINE #3) 00 every 4 Medical 300-30 mg (four) Branch tablet hours as needed for Pain (scale 4-6) or Pain (scale 7-10). acetaminoph Yes [id number] 1{tbl} Take 1 Univers en-codeine 1-11 [id number] tablet by it y of (TYLENOL-CO 00:00: mouth [place] DEINE #3) 00 every 4 Medical 300-30 mg (four) Branch tablet hours as needed for Pain (scale 4-6) or Pain (scale 7-10). acetaminoph Yes [id number] 1{tbl} Take 1 Univers en-codeine 1-11 [id number] tablet by it y of (TYLENOL-CO 00:00: mouth [place] DEINE #3) 00 every 4 Medical 300-30 mg (four) Branch tablet hours as needed for Pain (scale 4-6) or Pain (scale 7-10). aspirin 81 2016-05 Yes 81mg Take 81 mg U nivers mg chewable 2-15 by mouth ity of tablet 11:49: daily. [address] aspirin 81 2016-05 Yes 81mg Take 81 mg U nivers mg chewable 2-15 by mouth ity of tablet 11:49: daily. [address] aspirin 81 2016-05 Yes 81mg Take 81 mg U nivers mg chewable 2-15 by mouth ity of tablet 11:49: daily. [address] cyclobenzap 2016-05 Yes Univer s rine 10 mg 2-07 ity of tablet 00:00: [address] HYDROcodone 2016-05 Yes TK 1 T PO U nivers -acetaminop 2-07 QID ity of hen 10-325 00:00: [place] mg tablet 00 [facility] traMADOL 50 2016-05 Yes Univer s mg tablet 2-07 ity of 00:00: [place] 00 Medical Branch cyclobenzap 2016-05 Yes Univer s rine 10 mg 2-07 ity of tablet 00:00: [place] [facility] Branch HYDROcodone 2016-05 Yes TK 1 T PO U nivers -acetaminop 2-07 QID ity of hen 10-325 00:00: [place] mg tablet 00 Medical Branch traMADOL 50 2016-05 Yes Univer s mg tablet 2-07 ity of 00:00: [place] [facility] cyclobenzap 2016-05 Yes Univer s rine 10 mg 2-07 ity of tablet 00:00: [place] [facility] HYDROcodone 2016-05 Yes TK 1 T PO U nivers -acetaminop 2-07 QID ity of hen 10-325 00:00: [place] mg tablet Medical [place] traMADOL 50 2016-05 Yes Univer s mg tablet 2-07 ity of 00:00: [place] [facility] amLODIPine 2016-05 Yes Univers 10 mg 2-05 ity of tablet 00:00: [place] [facility] amLODIPine 2016-05 Yes Univers 10 mg 2-05 ity of tablet 00:00: [place] [facility] amLODIPine 2016-05 Yes Univers 10 mg 2-05 ity of tablet 00:00: [address] Branch NOVOLOG 100 2016-05 Yes Univer s unit/mL 1-29 ity of solution 00:00: [address] Branch NOVOLOG 100 2016-05 Yes Univer s unit/mL 1-29 ity of solution 00:00: [place] [facility] NOVOLOG 100 2016-05 Yes Univer s unit/mL 1-29 ity of solution 00:00: [place] [facility] clopidogrel 2016-05 Yes Univer s 75 mg 1-13 ity of tablet 00:00: [place] [facility] lisinopril 2016-05 Yes Univers 20 mg 1-13 ity of tablet 00:00: [address] Branch simvastatin 2016-05 Yes Univer s 40 mg 1-13 ity of tablet 00:00: [address] Branch clopidogrel 2016-05 Yes Univer s 75 mg 1-13 ity of tablet 00:00: [place] [facility] lisinopril 2016-05 Yes Univers 20 mg 1-13 ity of tablet 00:00: [address] simvastatin Yes Univer s 40 mg 1-13 ity of tablet 00:00: [facility] clopidogrel 2016- Yes Univer s 75 mg 1-13 ity of tablet 00:00: [place] [facility] lisinopril 2016- Yes Univers 20 mg 1-13 ity of tablet 00:00: [place] [facility] simvastatin 2016- Yes Univer s 40 mg 1-13 ity of tablet 00:00: [place] [facility] metoprolol 0 Yes Univers tartrate 50 9-26 ity of mg tablet 00:00: [place] [facility] metoprolol Yes Univers tartrate 50 9-26 ity of mg tablet 00:00: [place] [facility] metoprolol Yes Univers tartrate 50 9-26 ity of mg tablet 00:00: [address] Vital Signs Vital Name Observation Time Observation Value Comments Source Systolic blood 2022-02-27 14:39:00 168 mm[Hg] Univer sity of pressure [facility] Diastolic blood 2022-02-27 14:39:00 81 mm[Hg] Unive rsity of [facility] Heart rate 2022-02-27 14:39:00 73 /min [facility] Body temperature 2022-02-27 14:39:00 36.17 [facility] Respiratory rate 2022-02-27 14:39:00 22 /min [facility] Body weight 2022-02-27 14:39:00 112.492 kg [facility] BMI 2022-02-27 14:39:00 31.00 kg/m2 [facility] Oxygen saturation in 2022-02-27 14:39:00 100 /min [facility] blood by [facility] Pulse oximetry Branch Procedures Procedure Date / Time Performed Performing Clinician Em e XR HIPS 2 VW LEFT 2022-09-04 18:23:42 Richard Cason [facility] ASSIGNMENT OF BENEFITS 2022-09-04 17:55:58 Doctor Unassigned, No [facility] XR WRIST 3+ VW LEFT 2022-02-27 15:01:12 [facility] CONSENT/REFUSAL FOR 2022-02-27 14:30:11 [facility] Branch TREATMENT Plan of Care Planned Activity Planned Date Details Comments Source Future Scheduled 2022-09-05 COVID-19 VACCINE (#1) [facility] Hospital Test 11:36:33 [code = COVID-19 VACCINE (#1)] Future Scheduled 2022-09-05 COLONOSCOPY SCREENING [facility] Hospital Test 11:36:33 [code = COLONOSCOPY SCREENING] Future Scheduled 2022-09-05 SHINGLES VACCINES (1 [facility] Test 11:36:33 of 2) [code = SHINGLES VACCINES (1 of 2)] Future Scheduled 2022-09-05 INFLUENZA VACCINE [facility] Hospital Test 11:36:33 [code = INFLUENZA VACCINE] Encounters Start End Encounter Admission Attending Care Care Encounter Source Date/Time Date/Time Type Type Clinicians Facility Department ID 2021-03-23 Emergency [facility] [id number] Univers 13:12:12 ity [facility] 2022-09-04 2022-09-04 Outpatient [facility] [id number] Univers 12:58:30 23:59:00 ity of [facility] 2022-09-04 2022-09-04 [facility] [id number] Univers 12:58:30 23:59:00 Encounter ANGLEELGIN [id number] ity of [place] [id number] [facility] [id number] [facility] 807 Branch 2022-09-04 2022-09-04 Orders Doctor AUGIE [id number] Univers 00:00:00 00:00:00 Only Unassigned, SAMANTHA [id number] ity of [place] [facility] [id number] [facility] [id number] [facility] 009 Branch 2022-02-27 2022-02-27 [facility] [id number] Univers 09:42:00 11:34:00 MARLA ity [facility] 2022-02-27 2022-02-27 Vinod Chow [facility] [id number] Univers 09:42:00 11:34:00 Marla LARA [id number] [facility] [id number] [facility] [id number] [facility] 084 Branch 2019-08-02 2019-08-02 Emergency Aldair Milner [facility] [id number] 16:58:18 18:02:00 [place] Lara [id number] [place] [id number] [place] [id number] 2019-08-02 2019-08-02 Orders Doctor AUGIE [id number] 00:00:00 00:00:00 Only Unassigned, SAMANTHA [id number] [place] [facility] [id number] 2019-07-22 2019-07-22 Outpatient [facility] [id number] [address] [place] [address] 00:00:00 00:00:00 PAM Sarkar Method i st 2019-07-15 2019-07-15 Outpatient Moisés P [facility] [id number] 07:26:00 07:26:00 _A_ [id number] Family Practic e Results This patient has no known results.
[2023-03-01] MEDS ORDERED: NA CHLORIDE 0.9% 1,000 ML ONE ×2 (16:40→17:32)
[2023-03-01 16:56] LABS: Absolute Lymphocytes (CBC) 0.6 K/uL (0.7-4.9); Hematocrit 36.5 % (39.6-49.0); MCV 79.2 fL (80-100); Platelets 258 thou/uL (152-406)
[2023-03-01 17:11] LABS: Albumin 2.9 g/dL (3.4-5.0); Magnesium 2.5 mg/dL (1.6-2.4); Phosphorus 2.9 mg/dL (2.5-4.9); Potassium 3.1 mEq/L (3.5-5.1); Protein, Total 8.1 g/dL (6.4-8.2)
[2023-03-01] MEDS ORDERED: ONDANSETRON 4 MG/2 ML VIAL ONE (17:36)
[2023-03-01] MEDS ORDERED: MORPHINE 4 MG/ML SYR ONE (17:36)
--- NOTE | 2023-03-01 17:51 | RAD REPORT ---
EXAM DESCRIPTION: CT - Abdomen Pelvis W Contrast - 03/01/2023 5:38 pm CLINICAL HISTORY: Abdominal pain COMPARISON: 2012 TECHNIQUE: Computed axial tomography of the abdomen pelvis was obtained. 100 cc Isovue-300 was admin istered intravenously. Oral contrast was not requested which limits evaluation of bowel and appendix All CT scans are performed using dose optimization technique as appropriate and may include automated exposure control or mA/KV adjustment according to patient size. FINDINGS: Marked dilatation of the gallbladder with wall thickening. Stranding within the adjacent fat. The adjacent colon has a mildly thickened wall likely related to s econdary inflammation. Spleen, pancreas, adrenals, right kidney are unremarkable. Small left renal cysts. No abscess. Mild moderate prostatic enlargement IMPRESSION: Marked dilatation of the gallbladder with gallbladder wall thickening likely indicating acute cholecystitis
--- NOTE | 2023-03-01 18:21 | RAD REPORT ---
EXAM DESCRIPTION: US - Abdomen Exam Limited - 03/01/2023 6:10 pm CLINICAL HISTORY: Abdominal pain. COMPARISON: CT abdomen April 01, 2020 FINDINGS: Gallbladder is distended and filled with debris. Gallbladder wall is thickened. Biliary tree is normal caliber IMPRESSION: Distended gallbladder with thickened wall compatible with acute cholecystitis Gallbladder is filled with debris. This all may represent a combination of sludge and tiny gallstones . A mass has a similar appearance
[2023-03-01] MEDS ORDERED: CIPROFLOXACIN 400mg IV 400 MG/200 ML BAG IV ONE (19:00)
[2023-03-01] MEDS ORDERED: METRONIDAZOLE 500mg IVPB 500 MG/100 ML BAG IV ONE (19:01)
--- NOTE | 2023-03-01 19:15 | ER ---
Nurse's Notes [facility] Name: Chang Carty Age: 57 yrs Sex: Male : 1965 Arrival Date: 03/01/2023 Time: 15:59 Bed 6 Private MD: Diagnosis: Acute cholecystitis Presentation: 03/01 16:20 Chief complaint: N/V/D, diffuse abdominal pain, and right flank pain x 6 days. hb Tolerating some fluids. Coronavirus screen: Client presents with at least one sign or symptom that may indicate coronavirus-19. Standard/surgical mask placed on the client. Provider contacted for isolation considerations. Ebola Screen: No symptoms or risks identified at this time. Initial Sepsis Screen: Does the patient meet any 2 criteria? No. Patient's initial sepsis screen is negative. Does the patient have a suspected source of infection? No. Patient's initial sepsis screen is negative. Risk Assessment: Do you want to hurt yourself or someone else? Patient reports no desire to harm self or others. Onset of symptoms was February 24, 2023. 16:20 Method Of Arrival: Wheelchair hb 16:20 Acuity: NEYMAR 3 hb Historical: - Allergies: 16:23 PENICILLINS; hb - Home Meds: 16:23 Lisinopril Oral [Active]; amlodipine oral [Active]; Levemir FlexPen 100 unit/mL (3 mL) hb subcutaneous Insulin Pen [Active]; Plavix 75 mg Oral tablet [Active]; clopidogrel oral [Active]; aspirin 81 mg Oral tablet,chewable [Active]; Simvastatin Oral [Active]; - PMHx: 16:23 CVA; L sided deficits; Diabetes - IDDM; Hypertension; hb - PSHx: 16:23 Arm - Left (Hypertension); hb - Immunization history:: Adult Immunizations up to date. - Social history:: Smoking status: Patient/guardian denies using tobacco, the patient reports quitting approximately 9 years ago. Screenin:05 [facility] ED Fall Risk Assessment (Adult) History of falling in the last 3 months, ko1 including since admission No falls in past 3 months (0 pts) Confusion or Disorientation No (0 pts) Intoxicated or Sedated No (0 pts) Impaired Gait Yes (1 pt) Mobility Assist Device Used Yes (1 pt) Altered Elimination No (0 pt) Score/Fall Risk Level 0 - 2 = Low Risk Oriented to surroundings, Maintained a safe environment, Educated pt \T\ family on fall prevention, incl call for assistance when getting out of bed, Assessed \T\ reinforced patient's understanding of fall precautions, Provided non-skid footwear, Hourly rounding (assess needs \T\ fall precautionary measures) done, Used ambulatory aids as needed (educated on \T\ assisted with), Used gait belt as appropriate. Abuse screen: Denies threats or abuse. Denies injuries from another. Nutritional screening: No deficits noted. Tuberculosis screening: No symptoms or risk factors identified. Assessment: 16:05 General: Appears in no apparent distress. uncomfortable, ill, Behavior is calm, ko1 cooperative, appropriate for age. Pain: Complains of pain in abdomen. Neuro: No deficits noted. Cardiovascular: No deficits noted. Respiratory: No deficits noted. GI: Bowel sounds present X 4 quads. Abd is soft X 4 quads. : No deficits noted. EENT: No deficits noted. Derm: No deficits noted. Musculoskeletal: No deficits noted. 19:20 General: Appears comfortable, Behavior is calm, cooperative. Pain: Complains of pain in ha1 right lower quadrant and right upper quadrant Pain does not radiate. Pain currently is 5 out of 10 on a pain scale. Quality of pain is described as crampy. Neuro: Level of Consciousness is awake, alert, obeys commands, Oriented to person, place, time, situation. Cardiovascular: Patient's skin is warm and dry. Respiratory: Airway is patent Respiratory effort is even, unlabored, Respiratory pattern is regular, symmetrical. GI: Abdomen is round non-distended, Bowel sounds present X 4 quads. Abd is soft X 4 quads Reports lower abdominal pain, upper abdominal pain, nausea, vomiting. 20:30 Reassessment: Patient appears in no apparent distress at this time. Patient and/or jb4 family updated on plan of care and expected duration. Pain level reassessed. Patient is alert, oriented x 3, equal unlabored respirations, skin warm/dry/pink. 21:43 Reassessment: Patient appears in no apparent distress at this time. Patient and/or jb4 family updated on plan of care and expected duration. Pain level reassessed. Patient is alert, oriented x 3, equal unlabored respirations, skin warm/dry/pink. Vital Signs: 16:05 BP 149 / 78; Pulse 93; Resp 18; Pulse Ox 100% ; ko1 16:20 BP 123 / 78; Pulse 99; Resp 18; Temp 98.5(O); Pulse Ox 99% on R/A; Weight 108.86 kg; hb Height 6 ft. 3 in. ; Pain 6/10; 17:43 BP 157 / 87; Pulse 89; Resp 16; Pulse Ox 100% ; ko1 18:53 BP 133 / 59; Pulse 87; Resp 14; Pulse Ox 100% ; ko1 19:30 BP 147 / 71; Pulse 86; Resp 17 S; Pulse Ox 100% on R/A; ha1 21:10 BP 117 / 61; Pulse 96; Resp 18 S; Pulse Ox 100% on R/A; ha1 16:20 Body Mass Index 30.00 (108.86 kg, 190.5 cm) hb 16:20 Pain Scale: Adult hb ED Course: 16:01 Patient arrived in ED. rg4 16:02 Laurel Power PA-C is PHCP. sb4 16:02 Donavon Fisher MD is Attending Physician. sb4 16:05 Patient has correct armband on for positive identification. Placed in gown. Bed in low ko1 position. Call light in reach. Side rails up X2. Provided Education on: na. Client placed on continuous cardiac and pulse oximetry monitoring. NIBP monitoring applied. hall monitor on. Door closed. Noise minimized. Lights dimmed. Warm blanket given. 16:18 Zuleima Izquierdo, RN is Primary Nurse. ko1 16:23 Triage completed. hb 16:27 Arm band placed on. hb 16:40 Inserted saline lock: 22 gauge in right antecubital area, using aseptic technique. ko1 Blood collected. 16:42 Phosphorus Sent. ko1 16:42 Magnesium Sent. ko1 16:42 Lactate w/ 2H reflex if indic. Sent. ko1 16:42 CBC with Diff Sent. ko1 16:42 CMP Sent. ko1 16:42 Lipase Sent. ko1 17:39 CT Abd/Pelvis - IV Contrast Only In Process Unspecified. EDMS 18:12 US Abdomen Limited In Process Unspecified. EDMS 19:19 Initiated transfer to [facility], Dustin Mcdermott stated they couldn't provide services and wm asked if I would like to try anywhere else, I asked provider, Siri Power, she stated [facility] was fine. 21:08 Pt accepted for transfer to [facility] Rm: [address] Palm \T\ 2053 per Dustin Mcdermott. wm 21:23 [facility] denied transport, no truck available due to waiting on us for another one, [facility] wm accepted with ETA at 2150. 21:43 No provider procedures requiring assistance completed. Patient transferred, IV remains jb4 in place. Administered Medications: 16:42 Drug: NS 0.9% IV 1000 ml IV at 1 bolus Per protocol; 1000 mL bolus Route: IV; Rate: 1 ko1 bolus; Site: right antecubital; 17:29 Drug: NS 0.9% IV 1000 ml IV at 1 bolus Per protocol; 1000 mL bolus Route: IV; Rate: 1 ko1 bolus; Site: right antecubital; 17:29 Drug: morphine IVP or IV 4 mg IVP once over 4 mins Route: IVP; Infused Over: 4 mins; ko1 Site: right antecubital; 17:29 Drug: Ondansetron IVP 4 mg IVP once; over 2 minutes Route: IVP; Site: right antecubital;ko1 18:49 Drug: Ciprofloxacin IVPB 400 mg 200 ml IVPB once over 60 mins Volume: 200 ml; Route: ko1 IVPB; Infused Over: 60 mins; Site: right antecubital; 19:35 Not Given (Patient Refused): fentanyl (pf)50 mcg IVP once ha1 19:40 Drug: metroNIDAZOLE IVPB 500 mg 100 ml IVPB at 200 ml/hr once over 30 mins Volume: 100 ha1 ml; Route: IVPB; Rate: 200 ml/hr; Infused Over: 30 mins; Site: right antecubital; 19:53 Drug: Hydrocodone-Acetaminophen PO (7.5 mg-325 mg) 1 tabs PO once Route: PO; ha1 21:09 Not Given (Other Intervention Used): insulin regular human10 units IVP once jb4 21:24 Drug: Potassium PO Effervescent Tablet 50 mEq PO once; dissolve in 4 ounces of water or jb4 juice Route: PO; 21:24 Drug: Insulin Regular Human IVP 5 units IVP once {Co-Signature: ha1 (Jody Skaggs RN).} jb4 Route: IVP; Site: right antecubital; Outcome: 19:14 ER care complete, transfer ordered by . sb4 21:43 Transferred by ground EMS to [facility], Transfer form completed. jb4 X-rays sent w/ patient. 21:44 Condition: stable jb4 21:44 Discharge instructions given to patient, Instructed on the need for transfer, Demonstrated understanding of instructions, 21:47 Patient left the ED. jb4 Signatures: Dispatcher [employer] EDMS Franci Walker, Sigrid Manzano RN rg4 Abdifatah Hart RN RN jb4 Livier Inman Heidy, RN RN ha1 Zuleima Izquierdo RN RN Laurel Turner, PA-Toby PAJody Hassan RN ha1
--- NOTE | 2023-03-01 19:15 | EDPHYS ---
Physician Documentation [facility] Name: Chang Carty Age: 57 yrs Sex: Male : 1965 Arrival Date: 03/01/2023 Time: 15:59 Bed 6 Private MD: ED Physician Donavon Fisher HPI: 03/01 16:43 This 57 yrs old Black Male presents to ER via Wheelchair with complaints of Abdominal sb4 Pain, Vomiting. 16:43 The patient presents with abdominal pain in the right upper quadrant, right lower sb4 quadrant. Onset: The symptoms/episode began/occurred 5 day(s) ago. The symptoms radiate to Associated signs and symptoms: Pertinent positives: nausea, vomiting, and diarrhea, Pertinent negatives: blood in stools, chest pain, fever, hematuria. Patient believes that he ate some bad tamales on Saturday. He was initially having a lot of nausea vomiting diarrhea. The vomiting has slowed down but the diarrhea persists. He is now endorsing right-sided abdominal pain and elevated blood sugar readings. Denies any fever, chest pain, shortness of breath, hematuria, dysuria. Historical: - Allergies: 16:23 PENICILLINS; hb - Home Meds: 16:23 Lisinopril Oral [Active]; amlodipine oral [Active]; Levemir FlexPen 100 unit/mL (3 mL) hb subcutaneous Insulin Pen [Active]; Plavix 75 mg Oral tablet [Active]; clopidogrel oral [Active]; aspirin 81 mg Oral tablet,chewable [Active]; Simvastatin Oral [Active]; - PMHx: 16:23 CVA; L sided deficits; Diabetes - IDDM; Hypertension; hb - PSHx: 16:23 Arm - Left (Hypertension); hb - Immunization history:: Adult Immunizations up to date. - Social history:: Smoking status: Patient/guardian denies using tobacco, the patient reports quitting approximately 9 years ago. ROS: 16:43 Constitutional: Negative for fever, chills, and weight loss, sb4 16:43 Abdomen/GI: Positive for abdominal pain, nausea, vomiting, and diarrhea, 16:43 All other systems are negative, Exam: 16:43 Constitutional: This is a well developed, well nourished patient who is awake, alert, sb4 and in no acute distress. Head/Face: Normocephalic, atraumatic. Eyes: Extra-ocular motions intact. Periorbital areas with no swelling, redness, or edema. Cardiovascular: Regular rate and rhythm with a normal S1 and S2. Respiratory: Lungs have equal breath sounds bilaterally, clear to auscultation and percussion. No rales, rhonchi or wheezes noted. No increased work of breathing, no retractions or nasal flaring. Skin: Warm, dry with normal turgor. Normal color with no rashes, no lesions, and no evidence of cellulitis. MS/ Extremity: Pulses equal, no cyanosis. Neurovascular intact. Full, normal range of motion. Neuro: Awake and alert, GCS 15, oriented to person, place, time, and situation. Motor strength 5/5 in all extremities. Sensory grossly intact. 16:43 Abdomen/GI: Inspection: abdomen appears normal, Bowel sounds: diminished, in all quadrants, Palpation: soft, moderate abdominal tenderness, in the right upper quadrant and right lower quadrant, involuntary guarding, is elicited in the right upper quadrant and right lower quadrant, Vital Signs: 16:05 BP 149 / 78; Pulse 93; Resp 18; Pulse Ox 100% ; ko1 16:20 BP 123 / 78; Pulse 99; Resp 18; Temp 98.5(O); Pulse Ox 99% on R/A; Weight 108.86 kg; hb Height 6 ft. 3 in. ; Pain 6/10; 17:43 BP 157 / 87; Pulse 89; Resp 16; Pulse Ox 100% ; ko1 18:53 BP 133 / 59; Pulse 87; Resp 14; Pulse Ox 100% ; ko1 19:30 BP 147 / 71; Pulse 86; Resp 17 S; Pulse Ox 100% on R/A; ha1 21:10 BP 117 / 61; Pulse 96; Resp 18 S; Pulse Ox 100% on R/A; ha1 16:20 Body Mass Index 30.00 (108.86 kg, 190.5 cm) hb 16:20 Pain Scale: Adult hb MDM: 16:09 Patient medically screened. sb4 16:43 Differential diagnosis: appendicitis, bowel obstruction, diverticulitis, non-specific sb4 abd pain, Ureterolithiasis, Colitis, gastroenteritis, mesenteric adenopathy. 19:13 Data reviewed: vital signs, nurses notes, lab test result(s), radiologic studies, I sb4 have discussed the patient's presentation/case with the attending Emergency Department Physician;. Management of patient was discussed with the following: Manager Corporate Responsibility: Dr. Edwards, general surgery, requests MRCP or ERCP before he will accept. MRI not available this weekend. Dr. Jaime, GI, will not perform ERCP without MRCP. Recommended transfer. Care significantly affected by the following chronic conditions: Diabetes, Hypertension. Counseling: I had a detailed discussion with the patient and/or guardian regarding the historical points, exam findings, and any diagnostic results supporting the discharge/admit diagnosis, the presence of at least one elevated blood pressure reading (>120/80) during this emergency department visit, lab results, radiology results, the need to transfer to another facility, [facility] does not immediately have the required specialist. 03/01 16:24 Order name: CBC with Diff; Complete Time: 17:00 sb4 03/01 16:24 Order name: CMP; Complete Time: 17:11 sb4 03/01 16:24 Order name: Lipase; Complete Time: 17:11 sb4 03/01 16:24 Order name: Lactate w/ 2H reflex if indic.; Complete Time: 17:08 sb4 03/01 16:24 Order name: Magnesium; Complete Time: 17:11 sb4 03/01 16:24 Order name: Phosphorus; Complete Time: 17:11 sb4 03/01 16:24 Order name: UAM; Complete Time: 19:47 sb4 03/01 16:52 Order name: Glucose, Ancillary Testing; Complete Time: 16:52 EDMS 03/01 21:18 Order name: Glucose, Ancillary Testing; Complete Time: 21:20 EDMS 03/01 16:24 Order name: CT Abd/Pelvis - IV Contrast Only; Complete Time: 17:52 sb4 03/01 17:53 Order name: US Abdomen Limited; Complete Time: 18:22 sb4 03/01 16:24 Order name: IV Saline Lock; Complete Time: 16:42 sb4 03/01 16:24 Order name: Labs collected and sent; Complete Time: 16:42 sb4 03/01 16:24 Order name: Accucheck; Complete Time: 16:40 sb4 Administered Medications: 16:42 Drug: NS 0.9% IV 1000 ml IV at 1 bolus Per protocol; 1000 mL bolus Route: IV; Rate: 1 ko1 bolus; Site: right antecubital; 17:29 Drug: NS 0.9% IV 1000 ml IV at 1 bolus Per protocol; 1000 mL bolus Route: IV; Rate: 1 ko1 bolus; Site: right antecubital; 17:29 Drug: morphine IVP or IV 4 mg IVP once over 4 mins Route: IVP; Infused Over: 4 mins; ko1 Site: right antecubital; 17:29 Drug: Ondansetron IVP 4 mg IVP once; over 2 minutes Route: IVP; Site: right antecubital;ko1 18:49 Drug: Ciprofloxacin IVPB 400 mg 200 ml IVPB once over 60 mins Volume: 200 ml; Route: ko1 IVPB; Infused Over: 60 mins; Site: right antecubital; 19:35 Not Given (Patient Refused): fentanyl (pf)50 mcg IVP once ha1 19:40 Drug: metroNIDAZOLE IVPB 500 mg 100 ml IVPB at 200 ml/hr once over 30 mins Volume: 100 ha1 ml; Route: IVPB; Rate: 200 ml/hr; Infused Over: 30 mins; Site: right antecubital; 19:53 Drug: Hydrocodone-Acetaminophen PO (7.5 mg-325 mg) 1 tabs PO once Route: PO; ha1 21:09 Not Given (Other Intervention Used): insulin regular human10 units IVP once jb4 21:24 Drug: Potassium PO Effervescent Tablet 50 mEq PO once; dissolve in 4 ounces of water or jb4 juice Route: PO; 21:24 Drug: Insulin Regular Human IVP 5 units IVP once {Co-Signature: red (Jody Skaggs RN).} jb4 Route: IVP; Site: right antecubital; Disposition Summary: 03/01/23 19:14 Transfer Ordered Notes: Transfer Location: [facility] sb4 Reason: Higher level of care sb4 Condition: Fair sb4 Problem: new sb4 Symptoms: are unchanged sb4 Accepting Physician: gen surg(03/01/23 21:47) jb4 Diagnosis - Acute cholecystitis sb4 Forms: - Medication Reconciliation Form sb4 - SBAR form sb4 Addendum: 03/03/2023 06:58 Co-signature as Attending Physician, Donavon Fisher MD I reviewed the patient's care r n provided by the Advanced Practice Provider and agree with the diagnosis and treatment plan. Signatures: Dispatcher [employer] Donavon Ordoñez MD MD rn Baxter, Heather, RN RN hb Bryson, James, RN RN jb4 Ayala, Heidy, RN RN ha1 Zuleima Izquierdo RN RN aLurel Turner, Jody Hammond PA-C, RN ha1 Corrections: (The following items were deleted from the chart) 03/01 21:47 19:14 gen surg sbSophia jbSophia
[2023-03-01] MEDS ORDERED: FENTANYL CITR 100 MCG/2 ML ONE (19:41)
[2023-03-01 19:46] LABS: Specific Gravity > 1.030 (1.005-1.030); Urine Bacteria None Seen /HPF (<20); Urine Bilirubin NEGATIVE (Negative); Urine Blood 1+ (Negative); Urine Clarity Clear (Clear); Urine Color Yellow (Yellow); Urine Glucose 4+ (Over) (Negative); Urine Protein 1+ (Negative); Urine RBC <5 /HPF (None Seen); Urine Urobilinogen Normal (Normal); Urine pH 6.5 (5.0-7.0)
[2023-03-01] MEDS ORDERED: HYDROCODONE/APAP 7.5/325 MG TAB ONE (20:03)
[2023-03-01] MEDS ORDERED: POTASSIUM 25 MEQ EFFERV TAB ONE (21:24)
[2023-03-01] MEDS ORDERED: INSULIN -REGULAR HUMAN 50 UNIT/0.5 ML ML ONE (21:25)
[2023-03-01 22:07] VITALS: TEMP 98.5
[2023-03-01 22:13] VITALS: O2SAT 100
[2023-03-01 22:16] VITALS: BP 117/61
== END 2023-03-01 21:47 | disposition short-term general hospital (02) ==
LOC: ER 15:59
DX: K81.0 Acute cholecystitis (principal); I10 Essential (primary) hypertension; E11.9 Type 2 diabetes mellitus without complications; Z88.0 Allergy status to penicillin; Z79.01 Long term (current) use of anticoagulants; Z79.82 Long term (current) use of aspirin; Z79.4 Long term (current) use of insulin
CPT/HCPCS: 85025; 81001; 36415; 83735; 84100; 82947 ×2; 83605; 83690; 80053; 74177; 76705; 96375; 96374; 99285; Q9967; J1815; J3010; J2405; J0744; J7030 ×2

== ENCOUNTER 2023-04-25 12:10 | Emergency (ER) | payer OTHER ==
--- OUTSIDE RECORDS SUMMARY | 2023-04-25 12:18 | XMS REPORT | Continuity of Care Document ---
:1965 Author Organization [facility] t Address [address] [facility] [place] [address] Care Team Providers Name Role Phone Jeremy GARCIA, Victor Hugo Primary Care Physician [phone] SUSANA DIAZ Attending Clinician UnavailKAYLEY Fay Attending Clinician Unavailable RAFAL KIM Attending Clinician Unavailable Néstor GARCIA, Kelly Enamorado Attending Clinician [phone] Kayley Patterson MD Attending Clinician Rafal Kim MD Attending Clinician [phone] RICHARD CASON Attending Clinician Unavailable Richard Cason PA-C Attending Clinician Doctor Unassigned, [place] Attending Clinician Unavailable MARLA CHOW Attending Clinician Unavailable Marla Chow DO Attending Clinician Aldair Briceno Attending Clinician PAM MATIAS Attending Clinician Unavailable Dayami-Mbkaino_A_AH Attending Clinician Unavailable SUSANA DIAZ Admitting Clinician UnavailKELLY Markham Admitting Clinician Unavailable RICHARD CASON Admitting Clinician Unavailable MARLA CHOW Admitting Clinician Unavailable Dayami-Mbayo_A_AH Admitting Clinician Unavailable Payers Payer Name Policy Type Policy Number Effective Date Expiration Date Hillary haynes [facility] [id number] 2022 MCR HMO 00:00:00 [employer] [place] [id number] 2019 00:00:00 [employer] [place] - [id number] MALVIN (MEDICARE REPLACEMENT/ADVANTAG E - HMO) Problems Condition Condition Condition Status Onset Resolution Last Treating Co mments Source Name Details Category Date Date Treatment Clinician Date Type 2 Type 2 Disease Recurre 2022-[address] [facility] diabetes diabetes nce 0-07 [facility] mellitus mellitus 00:00: Medica l without without 00 Center complicati complicati on, with on, with long-term long-term current current use of use of insulin insulin BRIGITTE (acute BRIGITTE (acute Disease Recurre 2022-[address] [facility] kidney kidney nce 0-07 [facility] injury) injury) 00:00: Medical 00 Center Hx of TIA Hx of TIA Disease Active 2022-[address] [facility] (transient (transient 0-07 [facility] ischemic ischemic 00:00: Medica l attack) attack) 00 Center and stroke and stroke Essential Essential Disease Active 2022-[address] [facility] [address] hypertensi hypertensi 0-07 [facility] on on 00:00: Medical 00 [place] Acute Acute Disease Active 2022-[address] [facility] cholecysti cholecysti 0-07 [facility] tis tis 00:00: Medical 00 [place] Post-opera Post-opera Disease Active M ethodi tive state tive state 2-09 st 00:00: Hospita 00 l Closed Closed Disease Active Methodi fracture fracture 2-07 st of left of left 00:00: Hospita distal distal 00 l humerus humerus Closed Closed Disease Active [facility]i supracondy supracondy 1-30 st lar lar 00:00: Hospita fracture fracture 00 l of left of left elbow elbow Allergies, Adverse Reactions, Alerts Allergy Allergy Status Severity Reaction(s) Onset Inactive Treating Comm ents Source Name Type Date Date Clinician Penicill Drug Active Nausea And 2022-[address] [facility] in Allergy Vomiting 0-06 [facility] 00:00: Medical 00 [place] PENICILL Allergy Active N\\T\\V 2022-[address] [facility] IN 0-06 [facility] 00:00: Medical 00 [place] Penicill Propensi Active Nausea Method i ins ty to [...] Date Stop Date Source Natural brother Diabetes [facility] Natural father Heart disease [facility] Natural mother Diabetes [facility] Natural mother Heart disease [facility] Social History Social Habit Start Date Stop Date Quantity Comments Source History of tobacco Cigarette Smoker [facility] use [facility] History [facility] Non-Med Medical Center History [facility] Alcohol St[facility] Drinks Hospit al History [facility] Sexual orientation Method ist Hospital History [facility] 2023-03-02 2023-03-[address] [facility] Transport Med 00:00:00 00:00:[address] [facility] 2023-03-02 2023-03-[address] [facility] Housing Unable to 00:00:00 00:00:00 Medical Center Pay History [facility] 2023-03-02 2023-03-[address] [facility] Housing Places 00:00:00 00:00:00 Medical Ce nter Lived History [facility] 2023-03-02 2023-03-[address] [facility] Housing Homeless 00:00:00 00:00:00 Medical Center Last Year Alcohol intake 2023-03-02 2023-03-02 .86 /d [facility] 00:00:00 00:00:00 Medical Center History of Social 2023-03-02 2023-03-[address] [facility] function 00:00:00 00:00:00 Medical Center Exposure to 2023-02-19 2023-03-[address] [facility] SARS-CoV-2 (event) 00:00:00 23:47:00 Medica l Center Tobacco use and 2023-03-01 2023-03-[address] [facility] exposure 00:00:00 00:00:00 tobacco user Medical Cent er History [facility] 2019-07-22 2019-07-22 1 [facility] Alcohol Frequency 00:00:00 00:00:00 Hospita l Cigarettes smoked 2018-07-02 2018-07-[address] current (pack per 00:00:00 00:00:00 Hospita l day) - Reported Cigarette 2018-07-02 2018-07-02 [facility] pack-years 00:00:00 00:00:00 Hospital Sex Ass[birth year] At [birth year] [facility] 00:00:00 00:00:00 Hospital Smoking Status Start Date Stop Date Source Ex-smoker 2023-03-01 00:00:00 2023-03-01 00:00:00 [facility] Smokes tobacco daily 2017-05-10 00:00:00 [facility] Medications Ordered Filled Start Stop Current Ordering Indication Dosage Frequency Signature Comments Components Source Medication Medication Date Date Medication? Clinician (SIG) Name Name aspirin 81 2022-05 Yes 81mg Take 1 [facility] MG EC 0-10 tablet (81 [facility] tablet 11:02: mg total) Medica l 15 by mouth. [place] metoprolol 2022-05 Yes 50mg Q.5D Take 1 [facility] tartrate 0-10 tablet (50 [facility] (LOPRESSOR) 11:02: mg total) M edical 50 MG 15 by mouth 2 Center tablet (two) times daily. montelukast 2022-05 Yes 10mg QD Take [address] (SINGULAIR) 0-10 tablet (10 [facility] 10 mg 11:02: mg total) Medical tablet 15 by mouth Center nightly. aspirin 81 2022-05 Yes 81mg Take 1 [facility] MG EC 0-10 tablet (81 [facility] tablet 11:02: mg total) Medica l 15 by mouth. Center metoprolol 2022-05 Yes 50mg Q.5D Take 1 [facility] tartrate 0-10 tablet (50 [facility] (LOPRESSOR) 11:02: mg total) M edical 50 MG 15 by mouth 2 Center tablet (two) times daily. montelukast 2022-05 Yes 10mg QD Take [address] (SINGULAIR) 0-10 tablet (10 [facility] 10 mg 11:02: mg total) Medical tablet 15 by mouth Center nightly. aspirin 81 2022-05 Yes 81mg Take 1 [facility] MG EC 0-10 tablet (81 [facility] tablet 11:02: mg total) Medica l 15 by mouth. Center metoprolol 2022-05 Yes 50mg Q.5D Take 1 [facility] tartrate 0-10 tablet (50 [facility] (LOPRESSOR) 11:02: mg total) M edical 50 MG 15 by mouth 2 Center tablet (two) times daily. montelukast 2022-05 Yes 10mg QD Take [address] (SINGULAIR) 0-10 tablet (10 [facility] 10 mg 11:02: mg total) Medical tablet 15 by mouth Center nightly. metroNIDAZO 2022-05 Yes 500mg Take [address] [facility] LE (FLAGYL) 0-10 tablet [facility] 500 MG 00:00: (500 mg Medical tablet 00 total) by Center mouth every 8 (eight) hours . metroNIDAZO 2022-05 Yes 500mg Take [address] [facility] LE (FLAGYL) 0-10 tablet [facility] 500 MG 00:00: (500 mg Medical tablet 00 total) by Center mouth every 8 (eight) hours . metroNIDAZO 2022-05 Yes 500mg Take [address] LE (FLAGYL) 0-10 tablet [facility] 500 MG 00:00: (500 mg Medical tablet 00 total) by Center mouth every 8 (eight) hours . HYDROcodone 2022-05- No 1{tbl} Take [address] -acetaminop 0-10 10-20 tablet by [facility] marino (NORCO 00:00: 23:59 mouth Medic al 5-325) 00 :00 every 6 Center 5-325 mg (six) per tablet hours as needed for up to 10 days. Max Daily Amount: 4 tablets levoFLOXaci 2022-05- No 750mg Q24H Take [address] n 0-10 10-20 tablet [facility] (LEVAQUIN) 00:00: 23:59 (750 mg Med ical 750 MG 00 :00 total) by Center tablet mouth daily for 10 days. HYDROcodone 2022-05- No 1{tbl} Take [address] -acetaminop 0-10 10-20 tablet by [facility] marino (NORCO 00:00: 23:59 mouth Medic al 5-325) 00 :00 every 6 Center 5-325 mg (six) per tablet hours as needed for up to 10 days. Max Daily Amount: 4 tablets levoFLOXaci 2022-05- No 750mg Q24H Take [address] n 0-10 10-20 tablet [facility] (LEVAQUIN) 00:00: 23:59 (750 mg Med ical 750 MG 00 :00 total) by Center tablet mouth daily for 10 days. HYDROcodone 2022-05- No 1{tbl} Take [address] -acetaminop 0-10 10-20 tablet by [facility] marino (NORCO 00:00: 23:59 mouth Medic al 5-325) 00 :00 every 6 Center 5-325 mg (six) per tablet hours as needed for up to 10 days. Max Daily Amount: 4 tablets levoFLOXaci 2022-2022- No 750mg Q24H Take [address] n 0-10 10-20 tablet [facility] (LEVAQUIN) 00:00: 23:59 (750 mg Med ical 750 MG 00 :00 total) by Center tablet mouth daily for 10 days. amLODIPine 2022-0 Yes 10mg QD Take 1 [facility] (NORVASC) 9-14 tablet (10 Luke s 10 MG 00:00: mg total) Medical tablet 00 by mouth Center daily. amLODIPine 2023-0 Yes 10mg QD Take 1 [facility] (NORVASC) 9-14 tablet (10 Luke s 10 MG 00:00: mg total) Medical tablet 00 by mouth Center daily. amLODIPine 3-0 Yes 10mg QD Take 1 [facility] (NORVASC) 9-14 tablet (10 Luke s 10 MG 00:00: mg total) Medical tablet 00 by mouth Center daily. Trulicity 2022-0 Yes 1{syrin Q7D Inject [address] 0.75 mg/0.5 9-08 ge} Syringe [facility] mL PnIj 00:00: subcutaneo Medi shellie 00 usly once Center a week. Trulicity 2022-0 Yes 1{syrin Q7D Inject [address] 0.75 mg/0.5 9-08 ge} Syringe [facility] mL PnIj 00:00: subcutaneo Medi shellie 00 usly once Center a week. Trulicity 2022-0 Yes 1{syrin Q7D Inject [address] 0.75 mg/0.5 9-08 ge} Syringe [facility] mL PnIj 00:00: subcutaneo Medi shellie 00 usly once Center a week. clopidogreL 2023-0 Yes 75mg QD Take [address] (PLAVIX) 75 9-07 tablet (75 [facility] mg tablet 00:00: mg total) Med ical 00 by mouth Center daily. clopidogreL 2023-0 Yes 75mg QD Take [address] (PLAVIX) 75 9-07 tablet (75 [facility] mg tablet 00:00: mg total) Med ical 00 by mouth Center daily. clopidogreL 2023-0 Yes 75mg QD Take [address] (PLAVIX) 75 9-07 tablet (75 [place] [facility] mg tablet 00:00: mg total) Med ical 00 by mouth Center daily. Levemir 2023-0 Yes 50U QD Inject 0.[address] Flexpen 100 8-25 mLs (50 [facility] unit/mL (3 00:00: Units Medica l mL) InPn 00 total) Center injection subcutaneo usly every morning. Levemir 2023-0 Yes 50U QD Inject 0.[address] Flexpen 100 8-25 mLs (50 [facility] unit/mL (3 00:00: Units Medica l mL) InPn 00 total) Center injection subcutaneo usly every morning. Levemir 2023-0 Yes 50U QD Inject 0.[address] Flexpen 100 8-25 mLs (50 [facility] unit/mL (3 00:00: Units Medica l mL) InPn 00 total) Center injection subcutaneo usly every morning. lisinopriL 2023-0 Yes 40mg QD Take 1 [facility] (PRINIVIL,Z 8-06 tablet (40 [place] ESTRIL) 40 00:00: mg total) Me dical MG tablet 00 by mouth Center daily. lisinopriL 2023-0 Yes 40mg QD Take 1 [facility] (PRINIVIL,Z 8-06 tablet (40 [place] [facility] ESTRIL) 40 00:00: mg total) Me dical MG tablet 00 by mouth Center daily. lisinopriL 2023-0 Yes 40mg QD Take 1 [facility] (PRINIVIL,Z 8-06 tablet (40 [place] ESTRIL) 40 00:00: mg total) Me dical MG tablet 00 by mouth Center daily. atorvastati 2023-0 Yes 20mg QD Take [address] n (LIPITOR) 7-13 tablet (20 [facility] 20 MG 00:00: mg total) Medical tablet 00 by mouth Center nightly. atorvastati Yes 20mg QD Take [address] n (LIPITOR) 7-13 tablet (20 [facility] 20 MG 00:00: mg total) Medical tablet 00 by mouth Center nightly. atorvastati Yes 20mg QD Take [address] n (LIPITOR) 7-13 tablet (20 [facility] [facility] 20 MG 00:00: mg total) Medical tablet 00 by mouth Center nightly. HumaLOG 2022- No 20U [id number] Inject [address] KwikPen 11-29 [id number] Units Luke s Insulin 100 00:00: 00:00 3D subcutaneo Medical unit/mL 00 :00 us 3 [place] In (three) times daily. HumaLOG 2022- No 20U Q.[id number] Inject [address] KwikPen 11-29 [id number] Units Luke s Insulin 100 00:00: 00:00 3D subcutaneo Medical unit/mL 00 :00 us 3 [place] In (three) times daily. HumaLOG 2022- No 20U Q.[id number] Inject [address] KwikPen 11-29 [id number] Units Luke s Insulin 100 00:00: 00:00 3D subcutaneo Medical unit/mL 00 :00 us 3 [place] In (three) times daily. cephALEXin 2021-05- No [id number] 500mg Take 1 Univers (KEFLEX) 0-03-07 [id number] capsule by it y of 500 mg 00:00: 04:59 mouth 4 [place] capsule 00 :00 (four) Medical times Branch daily for 7 days. ibuprofen Yes [id number] 600mg Take 1 U nivers 600 mg 3-08 tablet by ity of tablet 00:00: mouth [place] 00 every 6 Medical (six) Branch hours as needed for Pain (scale 4-6). ibuprofen 0 Yes [id number] 600mg Take 1 U nivers 600 mg 3-08 tablet by ity of tablet 00:00: mouth [place] 00 every 6 Medical (six) Branch hours as needed for Pain (scale 4-6). ibuprofen 2020-0 Yes [id number] 600mg Take 1 U nivers 600 mg [...] 19 l coated tablet NOVOLOG 2020-0 Yes [id number] Inject Me thodi U-100 2-[id number] INSULIN 10:56: 3D skin 3 Hospita ASPART SUBQ 19 (three) l times a day with meals. Sliding scale insulin insulin 2020-0 Yes 25U QD Inject 25 Metho di detemir 2-[address] (LEVEMIR 10:56: under the Hosp shila U-100 19 skin every l INSULIN morning. SUBQ) lisinopril 2020-0 Yes 20mg Q.5D Take 20 [...] 19 l coated tablet NOVOLOG 2020-0 Yes [id number] Inject Me thodi U-100 2-[id number] INSULIN 10:56: 3D skin 3 Hospita ASPART SUBQ 19 (three) l times a day with meals. Sliding scale insulin insulin 2020-0 Yes 25U QD Inject 25 Metho di detemir 2-[address] (LEVEMIR 10:56: under the Hosp shila U-100 19 skin every l INSULIN morning. SUBQ) acetaminoph 2019-0 Yes [id number] 1{tbl} Take 1 [facility] en-codeine 1-11 [id number] tablet by it y of (TYLENOL-CO 00:00: mouth [place] DEINE #3) 00 every 4 Medical 300-30 mg (four) Branch tablet hours as needed for Pain (scale 4-6) or Pain (scale 7-10). acetaminoph 2019-0 Yes [id number] 1{tbl} Take 1 Univers en-codeine 1-11 [id number] tablet by it y of (TYLENOL-CO 00:00: mouth [place] DEINE #3) 00 every 4 Medical 300-30 mg (four) Branch tablet hours as needed for Pain (scale 4-6) or Pain (scale 7-10). acetaminoph 2019-0 Yes [id number] 1{tbl} Take 1 Univers en-codeine 1-11 [id number] tablet by it y of (TYLENOL-CO 00:00: mouth [place] DEINE #3) 00 every 4 Medical 300-30 mg (four) Branch tablet hours as needed for Pain (scale 4-6) or Pain (scale 7-10). aspirin 81 2016-05 Yes 81mg Take 81 mg U nivers mg chewable 2-15 by mouth ity of tablet 11:49: daily. [place] [facility] aspirin 81 2016-05 Yes 81mg Take 81 mg U nivers mg chewable 2-15 by mouth ity of tablet 11:49: daily. [place] [facility] aspirin 81 2016-05 Yes 81mg Take 81 mg U nivers mg chewable 2-15 by mouth ity of tablet 11:49: daily. [place] [facility] Branch cyclobenzap 2016-05 Yes Univer s rine 10 mg 2-07 ity of tablet 00:00: [place] [facility] HYDROcodone 2016-05 Yes TK 1 T PO U nivers -acetaminop 2-07 QID ity of hen 10-325 00:00: [place] mg tablet [facility] traMADOL 50 2016-05 Yes Univer s mg tablet 2-07 ity of 00:00: [place] [facility] cyclobenzap 2016-05 Yes Univer s rine 10 mg 2-07 ity of tablet 00:00: [place] [facility] HYDROcodone 2016-05 Yes TK 1 T PO U nivers -acetaminop 2-07 QID ity of hen 10-325 00:00: [place] mg tablet Medical Branch traMADOL 50 2016-05 Yes Univer s mg tablet 2-07 ity of 00:00: [place] [facility] Branch cyclobenzap 2016-05 Yes Univer s rine 10 mg 2-07 ity of tablet 00:00: [place] [facility] HYDROcodone 2016-05 Yes TK 1 T PO U nivers -acetaminop 2-07 QID ity of hen 10-325 00:00: [place] mg tablet [facility] traMADOL 50 2016-05 Yes Univer s mg tablet 2-07 ity of 00:00: [place] [facility] amLODIPine 2016-05 Yes Univers 10 mg 2-05 ity of tablet 00:00: [address] Branch amLODIPine 2016-05 Yes Univers 10 mg 2-05 ity of tablet 00:00: [place] [facility] amLODIPine 2016-05 Yes Univers 10 mg 2-05 ity of tablet 00:00: [place] 00 Medical Branch NOVOLOG 100 2017-1 Yes Univer s unit/mL 1-29 ity of solution 00:00: [place] [facility] NOVOLOG 100 2017-1 Yes Univer s unit/mL 1-29 ity of solution 00:00: [address] Branch NOVOLOG 100 2017-1 Yes Univer s unit/mL 1-29 ity of solution 00:00: [address] clopidogrel 2017-1 Yes Univer s 75 mg 1-13 ity of tablet 00:00: [place] [facility] lisinopril 2017-1 Yes Univers 20 mg 1-13 ity of tablet 00:00: [address] simvastatin 2017-1 Yes Univer s 40 mg 1-13 ity of tablet 00:00: [address] clopidogrel 2017-1 Yes Univer s 75 mg 1-13 ity of tablet 00:00: [address] lisinopril 2017-1 Yes Univers 20 mg 1-13 ity of tablet 00:00: [address] simvastatin 2017-1 Yes Univer s 40 mg 1-13 ity of tablet 00:00: [address] clopidogrel 2017-1 Yes Univer s 75 mg 1-13 ity of tablet 00:00: [address] lisinopril 2017-1 Yes Univers 20 mg 1-13 ity of tablet 00:00: [address] simvastatin 2017-1 Yes Univer s 40 mg 1-13 ity of tablet 00:00: [address] metoprolol 2017-0 Yes Univers tartrate 50 9-26 ity of mg tablet 00:00: [address] metoprolol 2017-0 Yes Univers tartrate 50 9-26 ity of mg tablet 00:00: [address] metoprolol 2017-0 Yes Univers tartrate 50 9-26 ity of mg tablet 00:00: [address] Vital Signs Vital Name Observation Time Observation Value Comments Source HEIGHT 2023-03-01 23:00:00 190.5 cm WEIGHT 2023-03-01 23:00:00 102.8 kg HEIGHT 2023-03-01 23:00:00 190.5 cm WEIGHT 2023-03-01 23:00:00 102.8 kg HEIGHT 2023-03-01 23:00:00 190.5 cm WEIGHT 2023-03-01 23:00:00 102.8 kg Systolic blood 2022-02-27 14:39:00 168 mm[Hg] Univer sity of pressure [facility] Diastolic blood 2022-02-27 14:39:00 81 mm[Hg] Unive rsity of [facility] Heart rate 2022-02-27 14:39:00 73 /min Universi [facility] Body temperature 2022-02-27 14:39:00 36.17 [facility] 2022-02-27 14:39:00 22 /min [facility] Body weight 2022-02-27 14:39:00 112.492 kg Universi [facility] BMI 2022-02-27 14:39:00 31.00 kg/m2 [facility] Oxygen saturation in 2022-02-27 14:39:00 100 /min [facility] Arterial blood by [facility] Pulse oximetry Alexis Systolic blood 2023-03-05 07:17:00 159 mm[Hg] [facility] Diastolic blood 2023-03-05 07:17:00 77 mm[Hg] [facility] Heart rate 2023-03-05 07:17:00 71 /min [facility] Body temperature 2023-03-05 07:17:00 36.94 Selam [facility] Respiratory rate 2023-03-05 07:17:00 18 /min [facility] Oxygen saturation in 2023-03-05 07:17:00 97 /min [facility] Arterial blood by Medical nter Pulse oximetry Body height 2023-03-01 23:00:00 190.5 cm [facility] Body weight 2023-03-01 23:00:00 102.8 kg [facility] BMI 2023-03-01 23:00:00 28.33 kg/m2 [facility] Procedures Procedure Date / Time Performing Clinician Source Performed POCT-GLUCOSE METER 2023-03-05 07:23:00 Rafal Kim [facility] CBC (HEMOGRAM ONLY) 2023-03-05 04:52:00 Kelly Palm [facility] BASIC METABOLIC PANEL 2023-03-05 04:52:00 [facility] MAGNESIUM 2023-03-05 04:52:00 [facility] HEPATIC FUNCTION PANEL 2023-03-05 04:52:00 [facility] POCT-GLUCOSE METER 2023-03-04 21[facility]00:[facility] 2023-03-04 15:03:00 [facility] POCT-GLUCOSE METER 2023-03-04 11:14:00 [facility] POCT-GLUCOSE METER 2023-03-04 08:42:00 [facility] (HEMOGRAM ONLY) 2023-03-04 05:12:00 [facility] BASIC METABOLIC PANEL 2023-03-04 05:12:00 [facility] MAGNESIUM 2023-03-04 05:12:00 [facility] HEPATIC FUNCTION PANEL 2023-03-04 05:12:00 [facility] POCT-GLUCOSE METER 2023-03-03 21:51:00 [facility] POCT-GLUCOSE METER 2023-03-03 16:25:00 [facility] POCT-GLUCOSE METER 2023-03-03 12:12:00 [facility] CBC (HEMOGRAM ONLY) 2023-03-03 06:20:00 [facility] BASIC METABOLIC PANEL 2023-03-03 06:20:00 [facility] MAGNESIUM 2023-03-03 06:20:00 Kelly Palm [facility] HEPATIC FUNCTION PANEL 2023-03-03 06:20:00 [facility] PO[facility]SE METER 2023-03-03 06:03:00 Adio, [facility] POCT-GLUCOSE METER 2023-03-03 02:00:00 [facility] 2023-03-02 18:23:00 Adio, [facility] US DRAINAGE WITH CATH 2023-03-02 16:13:28 [place] POCT-GLUCOSE METER 2023-03-02 11:51:00 Adio, [facility] POCT-GLUCOSE METER 2023-03-02 08:51:00 Adio, [facility] POCT-GLUCOSE METER 2023-03-02 05:40:00 [facility] PROTHROMBIN TIME/INR 2023-03-02 02:15:00 [facility] ABORH, MANUAL 2023-03-02 01:52:00 Salima Garcia [facility] TYPE AND SCREEN, 2023-03-02 01:03:00 [facility] CBC W/PLT COUNT & AUTO 2023-03-02 01:03:00 [facility] (CELLAVISION MANUAL 2023-03-02 01:03:00 [facility] DIFF) [facility] CBC W/PLT COUNT & AUTO 2023-03-02 01:03:00 [facility] DIFFERENTIAL [facility] COMPREHENSIVE METABOLIC 2023-03-02 01:03:00 Kelly Palm I [facility] PANEL [facility] HEMOGLOBIN A1C 2023-03-02 01:03:00 Indy Palme [facility] MAGNESIUM 2023-03-02 01:03:00 Kelly Palm [facility] PHOSPHORUS 2023-03-02 01:03:00 Kelly Palm [facility] LIPASE 2023-03-02 01:03:00 Néstor [facility] POCT-GLUCOSE METER 2023-03-02 00:32:00 [facility] XR HIPS 2 VW LEFT 2022-09-04 18:23:42 Richard Cason [facility] ASSIGNMENT OF BENEFITS 2022-09-04 17:55:58 Doctor Unassigned, No [facility] XR WRIST 3+ VW LEFT 2022-02-27 15:01:12 [facility]la Chow [facility] CONSENT/REFUSAL FOR 2022-02-27 14:30:11 Doctor Unassigned, No Un [facility] DIAGNOSIS AND TREATMENT [facility] Plan of Care Planned Activity Planned Date Details Comments Source Future Scheduled 2024-03-[address] [facility] Test 00:00:00 Counseling and Screening [facility] Center (12+) [code = Tobacco Cessation Counseling and Screening (12+)] Future Scheduled 2024-03-[address] [facility] Test 00:00:00 Counseling and Screening Med ical Center (12+) [code = Tobacco Cessation Counseling and Screening (12+)] Future Scheduled 2024-03-[address] [facility] Test 00:00:00 Counseling and Screening Med ical Center (12+) [code = Tobacco Cessation Counseling and Screening (12+)] Future Scheduled 2023-04-25 Screening for malignant [facility] Test 12:16:13 neoplasm of colon Hospital (procedure) [code = 127614420] Future Scheduled 2023-04-25 Screening for malignant [facility] Test 12:16:13 neoplasm of colon Hospital (procedure) [code = 388197801] Future Scheduled 2023-04-25 Screening for malignant [facility] Test 12:16:13 neoplasm of colon Hospital (procedure) [code = 587240514] Future Scheduled 2023-04-25 COVID-19 VACCINE (#1) [facility] Test 12:16:13 [code = COVID-19 VACCINE Hos pital (#1)] Future Scheduled 2023-04-25 Screening for malignant [facility] Test 12:16:13 neoplasm of colon Hospital (procedure) [code = 823201783] Future Scheduled 2023-04-25 Screening for malignant [facility] Test 12:16:13 neoplasm of colon Hospital (procedure) [code = 249079547] Future Scheduled 2023-04-25 SHINGLES VACCINES (1 of [facility] Test 12:16:13 2) [code = SHINGLES Hospital VACCINES (1 of 2)] Future Scheduled 2023-04-25 INFLUENZA VACCINE (#1) M ethodist Test 12:16:13 [code = INFLUENZA Hospital VACCINE (#1)] Future Scheduled 2023-03-[address] [facility] 00:[facility]:00 measurement (procedure) [facility] [code = [id number]] Future Scheduled 2023-03-[address] [facility] 00:00:00 measurement (procedure) [facility] [code = 32283901] Future Scheduled 2023-03-[address] [facility] 00[facility]00:00 measurement (procedure) [facility] [code = 98120025] Future Scheduled 2023-01-25 Influenza Vaccine (#1) [facility] [code = Influenza Medical Ce nter Vaccine (#1)] Future Scheduled 2023-01-25 Influenza Vaccine (#1) [facility] 00:00[facility]00 [code = Influenza Medical Ce nter Vaccine (#1)] Future Scheduled 2023-01-25 Influenza Vaccine (#1) [facility] 00:00[facility]00 [code = Influenza Medical Ce nter Vaccine (#1)] Future Scheduled 2022-09-05 COVID-19 [facility]ACCINE [facility]) [facility] [code = COVID-19 VACCINE Hos pital (#1)] Future Scheduled 2022-09-05 [facility]CREENING [facility] 11:36:[facility] [code = COLONOSCOPY Hospital SCREENING] Future Scheduled 2022-09-05 SHINGLES [facility]ACCINES ([facility] 11:36:33 2) [code = SHINGLES Hospital VACCINES (1 of 2)] Future Scheduled 2022-09-05 INFLUENZA VACCINE [code [facility] 11:36:33 = INFLUENZA VACCINE] Hospita l Future Scheduled 2022-05-[address] [facility] 00:00:00 (12+) [code = DEPRESSION Med ical Center SCREENING (12+)] Future Scheduled 2022-05-[address] [facility] 00:00:00 (12+) [code = DEPRESSION Med ical Center SCREENING (12+)] Future Scheduled 2022-05-[address] [facility] 00:00:00 (12+) [code = DEPRESSION Med ical Center SCREENING (12+)] Future Scheduled 2020-07-26 MEDICARE ANNUAL WELLNESS [facility] 00:00:00 (YEAR 2 or FIRST YEAR if Med ical Center no IPPE) [code = MEDICARE ANNUAL WELLNESS (YEAR 2 or FIRST YEAR if no IPPE)] Future Scheduled 2020-07-26 [address] ANNUAL WELLNESS [facility] 00:00:00 (YEAR 2 or FIRST YEAR if Med ical Center no IPPE) [code = MEDICARE ANNUAL WELLNESS (YEAR 2 or FIRST YEAR if no IPPE)] Future Scheduled 2020-07-26 [address]NUAL WELLNESS [facility] 00:00:00 (YEAR 2 or FIRST YEAR if Med ical Center no IPPE) [code = MEDICARE ANNUAL WELLNESS (YEAR 2 or FIRST YEAR if no IPPE)] Future Scheduled 2017 SHINGLES VACCINES ([address] [facility] 00:00:00 2) [code = SHINGLES Medical Center VACCINES (1 of 2)] Future Scheduled 2017 SHINGLES VACCINES ([address] [facility] 00:00:00 2) [code = SHINGLES Medical Center VACCINES (1 of 2)] Future Scheduled 2017 SHINGLES VACCINES ([address] [facility] 00:00:00 2) [code = SHINGLES Medical Center VACCINES (1 of 2)] Future Scheduled 2002 Lipid panel (procedure) [facility] 00:00:00 [code = 01730284] Medical Ce nter Future Scheduled 2002 Lipid panel (procedure) [facility] 00:00:00 [code = 34194436] Medical Ce nter Future Scheduled 2002 Lipid panel (procedure) [facility] 00:00:00 [code = 16812651] Medical Ce nter Future Scheduled 1986 DTAP/TDAP/TD VACCINES ([address] [facility] 00:00:00 - Tdap) [code = Medical Cent er DTAP/TDAP/TD VACCINES (1 - Tdap)] Future Scheduled 1986 DTAP/TDAP/TD VACCINES ([address] [facility] 00:00:00 - Tdap) [code = Medical Cent er DTAP/TDAP/TD VACCINES (1 - Tdap)] Future Scheduled 1986 DTAP/TDAP/TD VACCINES ([address] [facility] 00:00:00 - Tdap) [code = Medical Cent er DTAP/TDAP/TD VACCINES (1 - Tdap)] Future Scheduled 1985 HEPATITIS C [facility] [code = HEPATITIS C Medical Center SCREENING] Future Scheduled 1985 HE[facility]ITIS C [facility] [code = HEPATITIS C Medical Center SCREENING] Future Scheduled 1985 HEPATITIS C [facility] 00:[facility] [code = HEPATITIS C Medical Center SCREENING] Future Scheduled [address] [facility] 00:00:00 virus screening Medical Cent er (procedure) [code = 999471088] Future Scheduled [address] [facility] 00:00:00 virus screening Medical Cent er (procedure) [code = 634339602] Future Scheduled [address] [facility] 00:00:00 virus screening Medical Cent er (procedure) [code = 714404288] Future Scheduled 1977 DIABETIC EYE EXAM [code [facility] 00:00:00 = DIABETIC EYE EXAM] Medical Center Future Scheduled [address] [facility] 00[facility] examination Medical Center (regime/therapy) [code = 543339605] Future Scheduled 1977 Urine screening for [facility] 00:00:00 protein (procedure) Medical Center [code = 346548603] Future Scheduled 1977 DIABETIC EYE EXAM [code [facility] 00:00:00 = DIABETIC EYE EXAM] Medical Center Future Scheduled [address] [facility] 00:00:00 examination Medical Center (regime/therapy) [code = 540635261] Future Scheduled 1977 Urine screening for [facility] 00:00:00 protein (procedure) Medical Center [code = 088906659] Future Scheduled 1977 DIABETIC EYE EXAM [code [facility] 00:00:00 = DIABETIC EYE EXAM] Medical Center Future Scheduled [address] [facility] 00:00:00 examination Medical Center (regime/therapy) [code = 963441374] Future Scheduled 1977 Urine screening for [facility] 00:00:00 protein (procedure) Medical Center [code = 061488118] Future Scheduled 1973 Pneumococcal Vaccine: [facility] 00:00:00 0-64 Years (1 - PCV) Medical Center [code = Pneumococcal Vaccine: 0-64 Years (1 - PCV)] Future Scheduled 1973 Pneumococcal Vaccine: [facility] 00:00:00 0-64 Years (1 - PCV) Medical Center [code = Pneumococcal Vaccine: 0-64 Years (1 - PCV)] Future Scheduled 1973 Pneumococcal Vaccine: [facility] 00:00:00 0-64 Years (1 - PCV) Medical Center [code = Pneumococcal Vaccine: 0-64 Years (1 - PCV)] Future Scheduled 1967 COVID-19 VACCINE (#1) [facility] 00:[facility] [code = COVID-19 VACCINE Med ical Center (#1)] Future Scheduled 1967 COVID-19 VACCINE (#1) [facility] 00:00[facility] [code = COVID-19 VACCINE Med ical Center (#1)] Future Scheduled 1967 COVID-19 VACCINE (#1) [facility] 00:[facility] [code = COVID-19 VACCINE Med ical Center (#1)] Future Scheduled 1967 CT Colonography (combo) [facility] 00:00:00 [code = CT Colon[facility] Future Scheduled 1967 Screening for malignant [facility] 00:00:00 neoplasm of colon Medical Ce nter (procedure) [code = 501149224] Future Scheduled 1967 Screening for malignant [facility] 00:00:00 neoplasm of colon Medical Ce nter (procedure) [code = 640774187] Future Scheduled 1967 Screening for malignant [facility] 00:00:00 neoplasm of colon Medical Ce nter (procedure) [code = 167703474] Future Scheduled 1967 Screening for malignant [facility] 00:00:00 neoplasm of colon Medical Ce nter (procedure) [code = 147000763] Future Scheduled 1967 Sigmoidoscopy [code = [facility] 00:[facility] Sigmoidoscopy] Medical Cente r Future Scheduled 1967 CT Colonography (combo) [facility] 00:00:00 [code = CT Colonography [facility]i [facility] Center (combo)] Future Scheduled 1967 Screening for malignant [facility] 00:00:00 neoplasm of colon Medical Ce nter (procedure) [code = 356243369] Future Scheduled 1967 Screening for malignant [facility] 00:00:00 neoplasm of colon Medical Ce nter (procedure) [code = 037168284] Future Scheduled 1967 Screening for malignant [facility] 00:00:00 neoplasm of colon Medical Ce nter (procedure) [code = 571546813] Future Scheduled 1967 Screening for malignant [facility] 00:00:00 neoplasm of colon Medical Ce nter (procedure) [code = 958367410] Future Scheduled 1967 Sigmoidoscopy [code = [facility] 00:[facility] Sigmoidoscopy] Medical Cente r Future Scheduled 1967 CT Colonography (combo) [facility] 00:00:00 [code = CT Colonography Medi shellie Center (combo)] Future Scheduled 1967 Screening for malignant [facility] 00:00:00 neoplasm of colon Medical Ce nter (procedure) [code = 672217831] Future Scheduled 1967 Screening for malignant [facility] 00:00:00 neoplasm of colon Medical Ce nter (procedure) [code = 178698457] Future Scheduled 1967 Screening for malignant [facility] 00:00:00 neoplasm of colon Medical Ce nter (procedure) [code = 612213831] Future Scheduled 1967 Screening for malignant [facility] 00:00:00 neoplasm of colon Medical Ce nter (procedure) [code = 140251274] Future Scheduled 1967 Sigmoidoscopy [code = [facility] 00:00:[facility] Sigmoidoscopy] Medical Cente r Future Appointment 2023-05-22 Susana Diaz MD, [facility] 11:30:00 Anu Zaragoza douglas; [place] [address] Future Appointment 2023-05-22 Susana Diaz MD, [facility] 11:30:00 1976 Mila Cotto; [place] [id number], [place] [id number] Procedure 2023-05-[address] [facility] 11:30:00 LAPAROSCOPY,CHOLECYSTECT [facility] Procedure 2023-05-22 PROCEDURE W/ [facility] 11:30:00 [facility] Encounters Start End Encounter Admission Attending Care Care Encounter Source Date/Time Date/Time Type Type Clinicians Facility Department ID 2023-04-17 Outpatient [facility]AE [facility] Surgery [id number] SLE 16:26:36 SUSANA FOURNIER 2023-03-02 Inpatient EL [facility] [id number] SLE 14:51:13 KAYLEY 2021-03-23 Emergency [facility] [id number] [facility]01 2023-03-05 Inpatient ER JULIO [facility] Surgery [id number] SLE 23:12:00 10:58:00 [facility] 2023-03-01 2023-03-05 [facility] [id number] [facility] 23[facility]12:00 10:58:00 [facility] 2023-03-01 2023-03-05 [facility] [id number] [facility] 23[facility]12:00 10:58:00 Encounter Kayley Patterson Rafal Kim [facility] 2023-03-01 2023-03-01 Travel [facility] [id number] [facility] 00:[facility]00 00:00:00 [facility] 2023-03-01 2023-03-01 Travel [facility] [id number] [facility] 00:[facility]00 00:00:00 [facility] 2022-09-04 2022-09-04 Outpatient R RENAN [facility] [id number] Univers 12:58:30 23:59:00 ity of [facility] 2022-09-04 2022-09-04 [facility] [id number] Univers 12:58:30 23:59:00 Encounter EDMUNDO 350.1.13.10 ity of [place] 4.2.7.2.686 [facility] [id number] [facility] [address] 2022-09-04 2022-09-04 Orders Doctor AUGIE [id number] Univers 00:00:00 00:00:00 Only Unassigned, SAMANTHA 350.1.13.10 ity of [place] [facility] 4.2.7.2.686 [facility] [id number] [facility] [address] 2022-02-27 2022-02-27 Emergency [facility] [id number] Univers 09:42:00 11:34:[address] [facility] 2022-02-27 2022-02-27 Emergency [facility] [id number] Univers 09:42:00 11:34:00 Marla WYATT 350.1.13.10 ity of [place] 4.2.7.2.686 [facility] [id number] [facility] [address] 2019-08-02 2019-08-02 Emergency Aldair Milner [facility] [id number] 16:58:18 18:02:00 Valencia Wyatt 350.1.13.10 [place] 4.2.7.2.686 [place] [id number] 2019-08-02 2019-08-02 Orders Doctor AUGIE [id number] 00:00:00 00:00:00 Only Unassigned, SAMANTHA 350.1.13.10 [place] [facility] 4.2.7.2.686 [id number] 2019-07-22 2019-07-22 [facility] [id number] [address] [place] [address] 00:00:00 00:00:00 PAM Sarkar Method i st 2019-07-15 2019-07-15 Outpatient Dayami-Mbayo VFP VFP [id number] [facility] 07:26:00 07:26:00 _A_ [id number] Family Practic e Results Test Description Test Time Test Comments Results Result Comments Source POC-Glucose meter 2023-03-05 07:35:18 Test Item Value Reference Range Interpretation Comme nts POC-Glucose Meter (test code = 148 mg/dL 70-110 H : TESTED AT [facility] [address] [place] [address]) [facility], [facility] 30: Sales Consultant Insurance/Techni rachel ID = [id number] for Pleasant, Bhanu do Lab Interpretation (test code = Abnormal 74034-3) [facility]-Glucose [id number] 07:35:18 Test Item Value Reference Range Interpretation Comments POC-Glucose Meter (test 148 mg/dL 70-110 H : TE STED AT [facility] code = 1538) [address] [place] [address], [facility] 30: Sales Consultant Insurance/Techni rachel ID = [id number] for Pleasant, Bhanu do Lab Interpretation (test Abnormal code = 38480-6) [facility]-Glucose [id number] 07:35:18 Test Item Value Reference Range Interpretation Comments POC-Glucose Meter (test 148 mg/dL 70-110 H : TE STED AT [facility] code = 1538) [address] [place] [address], [facility] 30: Sales Consultant Insurance/Techni rachel ID = [id number] for Pleasant, Bhanu do Lab Interpretation (test Abnormal code = 43276-6) [facility]-GLUCOSE [id number] 07:35:18 Test Item Value Reference Range Interpretation Comments POC-GLUCOSE METER 148 mg/dL 70-110 H : TESTED A T [facility] 6720 (BEAKER) (test code = [place], 1538) [address]: Sales Consultant Insurance/Techni rachel ID = [id number] for Pl Adair vo [id number] 06:46:08 Test Item Value Reference Range Interpretation Comments MAGNESIUM (BEAKER) (test code = 1.8 mg/dL 1.6-2.6 627) Sales Consultant Insurance ID - EMHEPATIC FUNCTION [id number] 06:46:08 Test Item Value Reference Range Interpretation Comments TOTAL PROTEIN (BEAKER) (test code = 6.4 gm/dL 6.0-8.3 770) ALBUMIN (BEAKER) (test code = 1145) 2.9 g/dL 3.5-5.0 L BILIRUBIN TOTAL (BEAKER) (test code 0.4 mg/dL 0.2-1.2 = 377) BILIRUBIN DIRECT (BEAKER) (test 0.3 mg/dL 0.1-0.5 code = 706) ALKALINE PHOSPHATASE (BEAKER) (test 130 U/L 40-150 code = 346) AST (SGOT) (BEAKER) (test code = 20 U/L 5-34 353) ALT (SGPT) (BEAKER) (test code = 41 U/L 6-55 347) Sales Consultant Insurance ID - EMBASIC METABOLIC [id number] 06:46:07 Test Item Value Reference Range Interpretation Comments SODIUM (BEAKER) 140 meq/L 136-145 (test code = 381) POTASSIUM 3.5 meq/L 3.5-5.1 (BEAKER) (test code = 379) CHLORIDE (BEAKER) 103 meq/L 98-107 (test code = 382) CO2 (BEAKER) 29 meq/L 22-29 (test code = 355) BLOOD UREA 9 mg/dL 7-21 NITROGEN (BEAKER) (test code = 354) CREATININE 0.81 mg/dL 0.57-1.25 (BEAKER) (test code = 358) GLUCOSE RANDOM 151 mg/dL 70-105 H (BEAKER) (test code = 652) CALCIUM (BEAKER) 8.6 mg/dL 8.4-10.2 (test code = 697) EGFR (BEAKER) 105 Interpretatio n of eGFR (test code = mL/min/1.73 values Stage De scription 1092) sq m Result G1 Bobbi l or high >=90 G2 Mildly decreased 60-89 G3a Mildl y to moderately 45-5 9 G3b Moderately to s everely 30-44 G4 Severl y decreased 15-29 G5 Kidney failure <15Reported eGF R is based on the CKD-EPI 2020 equation that d oes not use a race coefficientEsti mated GFR is not as accur ate as Creatinine Renata eder in predicting glom erular filtration rate . Estimated GFR is not appl icable for dialysis patien ts Sales Consultant Insurance ID - [id number] (HEMOGRAM ONLY)2023-03-05 06:32:15 Test Item Value Reference Range Interpretation Comments WHITE BLOOD CELL COUNT (BEAKER) 11.8 K/ L 3.5-10.5 H (test code = 775) RED BLOOD CELL COUNT (BEAKER) 4.10 M/ L (test code = 761) HEMOGLOBIN (BEAKER) (test code = 10.0 GM/DL 13.7-17.5 L 410) HEMATOCRIT (BEAKER) (test code = 33.5 % 40.1-51.0 L 411) MEAN CORPUSCULAR VOLUME (BEAKER) 82 fL 79-92 (test code = 753) MEAN CORPUSCULAR HEMOGLOBIN 24.4 pg 25.7-32.2 L (BEAKER) (test code = 751) MEAN CORPUSCULAR HEMOGLOBIN CONC 29.9 GM/DL 32.3-36.5 L (BEAKER) (test code = 752) RED CELL DISTRIBUTION WIDTH 14.9 % 11.6-14.4 H (BEAKER) (test code = 412) PLATELET COUNT (BEAKER) (test 265 K/CU MM 150-450 code = 756) MEAN PLATELET VOLUME (BEAKER) 11.7 fL 9.4-12.4 (test code = 754) NUCLEATED RED BLOOD CELLS 0 /100 WBC 0-0 (BEAKER) (test code = 413) POCT-GLUCOSE [id number] 21:12:07 Test Item Value Reference Range Interpretation Comments POC-GLUCOSE METER 227 mg/dL 70-110 H : TESTED A T [facility] 6720 (BEAKER) (test code = [place], 1538) [address]: Sales Consultant Insurance/Techni rachel ID = [id number] for WERNER FLEMING POCT-GLUCOSE [id number] 15:19:39 Test Item Value Reference Range Interpretation Comments POC-GLUCOSE METER 196 mg/dL 70-110 H : TESTED A T [facility] 6720 (BEAKER) (test code [facility], = 1538) [address]: Sales Consultant Insurance/Techni rachel ID = [id number] for ALBERT Carrillo ADA POCT-GLUCOSE [id number] 11:26:22 Test Item Value Reference Range Interpretation Comments POC-GLUCOSE METER 232 mg/dL 70-110 H : TESTED A T [facility] 6720 (BEAKER) (test code [facility], = 1538) [address]: Sales Consultant Insurance/Techni rachel ID = [id number] for ALBERT Carrillo ADA POCT-GLUCOSE [id number] 08:54:38 Test Item Value Reference Range Interpretation Comments POC-GLUCOSE METER 208 mg/dL 70-110 H : TESTED A T [facility] 6720 (BEAKER) (test code [facility], = 1538) [address]: Sales Consultant Insurance/Techni rachel ID = [id number] for ALBERT Carrillo ADA BASIC METABOLIC [id number] 06:42:44 Test Item Value Reference Range Interpretation Comments SODIUM (BEAKER) 139 meq/L 136-145 (test code = 381) POTASSIUM 3.4 meq/L 3.5-5.1 L (BEAKER) (test code = 379) CHLORIDE (BEAKER) 102 meq/L 98-107 (test code = 382) CO2 (BEAKER) 29 meq/L 22-29 (test code = 355) BLOOD UREA 9 mg/dL 7-21 NITROGEN (BEAKER) (test code = 354) CREATININE 0.78 mg/dL 0.57-1.25 (BEAKER) (test code = 358) GLUCOSE RANDOM 160 mg/dL 70-105 H (BEAKER) (test code = 652) CALCIUM (BEAKER) 8.7 mg/dL 8.4-10.2 (test code = 697) EGFR (BEAKER) 106 Interpretatio n of eGFR (test code = mL/min/1.73 values Stage De scription 1092) sq m Result G1 Bobbi l or high >=90 G2 Mildly decreased 60-89 G3a Mildl y to moderately 45-5 9 G3b Moderately to s everely 30-44 G4 Severl y decreased 15-29 G5 Kidney failure <15Reported eGF R is based on the CKD-EPI 2020 equation that d oes not use a race coefficientEsti mated GFR is not as accur ate as Creatinine Renata eder in predicting glom erular filtration rate . Estimated GFR is not appl icable for dialysis patien ts Sales Consultant 06:42:44 Test Item Value Reference Range Interpretation Comments MAGNESIUM (BEAKER) (test code = 1.9 mg/dL 1.6-2.6 627) Sales Consultant Insurance ID - BSHEPATIC FUNCTION [id number] 06:42:44 Test Item Value Reference Range Interpretation Comments TOTAL PROTEIN (BEAKER) (test code = 6.6 gm/dL 6.0-8.3 770) ALBUMIN (BEAKER) (test code = 1145) 2.9 g/dL 3.5-5.0 L BILIRUBIN TOTAL (BEAKER) (test code 0.5 mg/dL 0.2-1.2 = 377) BILIRUBIN DIRECT (BEAKER) (test 0.3 mg/dL 0.1-0.5 code = 706) ALKALINE PHOSPHATASE (BEAKER) (test 137 U/L 40-150 code = 346) AST (SGOT) (BEAKER) (test code = 16 U/L 5-34 353) ALT (SGPT) (BEAKER) (test code = 46 U/L 6-55 347) Sales Consultant Insurance ID - [id number] (HEMOGRAM ONLY)2023-03-04 05:52:38 Test Item Value Reference Range Interpretation Comments WHITE BLOOD CELL COUNT (BEAKER) 13.8 K/ L 3.5-10.5 H (test code = 775) RED BLOOD CELL COUNT (BEAKER) 4.16 M/ L (test code = 761) HEMOGLOBIN (BEAKER) (test code = 10.0 GM/DL 13.7-17.5 L 410) HEMATOCRIT (BEAKER) (test code = 33.4 % 40.1-51.0 L 411) MEAN CORPUSCULAR VOLUME (BEAKER) 80 fL 79-92 (test code = 753) MEAN CORPUSCULAR HEMOGLOBIN 24.0 pg 25.7-32.2 L (BEAKER) (test code = 751) MEAN CORPUSCULAR HEMOGLOBIN CONC 29.9 GM/DL 32.3-36.5 L (BEAKER) (test code = 752) RED CELL DISTRIBUTION WIDTH 14.8 % 11.6-14.4 H (BEAKER) (test code = 412) PLATELET COUNT (BEAKER) (test 270 K/CU MM 150-450 code = 756) MEAN PLATELET VOLUME (BEAKER) 10.9 fL 9.4-12.4 (test code = 754) NUCLEATED RED BLOOD CELLS 0 /100 WBC 0-0 (BEAKER) (test code = 413) POCT-GLUCOSE [id number] 22:03:10 Test Item Value Reference Range Interpretation Comments POC-GLUCOSE METER 219 mg/dL 70-110 H : TESTED A T [facility] 6720 (BEAKER) (test code = [facility], 1538) [address]: Sales Consultant Insurance/Techni rachel ID = [id number] for NAGI JANSEN POCT-GLUCOSE [id number] 16:44:29 Test Item Value Reference Range Interpretation Comments POC-GLUCOSE METER 199 mg/dL 70-110 H : TESTED A T [facility] 6720 (BEAKER) (test code = [facility], 1538) [address]: Sales Consultant Insurance/Techni rachel ID = [id number] for Marc osmanPamela POCT-GLUCOSE [id number] 12:23:44 Test Item Value Reference Range Interpretation Comments POC-GLUCOSE METER 210 mg/dL 70-110 H : TESTED A T [facility] 6720 (BEAKER) (test code [facility], = 1538) [address]: Sales Consultant Insurance/Techni rachel ID = [id number] for Dereje [place] HEPATIC FUNCTION [id number] 08:00:28 Test Item Value Reference Range Interpretation Comments TOTAL PROTEIN (BEAKER) (test code = 5.9 gm/dL 6.0-8.3 L 770) ALBUMIN (BEAKER) (test code = 1145) 2.8 g/dL 3.5-5.0 L BILIRUBIN TOTAL (BEAKER) (test code 0.9 mg/dL 0.2-1.2 = 377) BILIRUBIN DIRECT (BEAKER) (test 0.5 mg/dL 0.1-0.5 code = 706) ALKALINE PHOSPHATASE (BEAKER) (test 140 U/L 40-150 code = 346) AST (SGOT) (BEAKER) (test code = 20 U/L 5-34 353) ALT (SGPT) (BEAKER) (test code = 63 U/L 6-55 H 347) Sales Consultant Insurance ID - frantzBASIC METABOLIC [id number] 08:00:27 Test Item Value Reference Range Interpretation Comments SODIUM (BEAKER) 136 meq/L 136-145 (test code = 381) POTASSIUM 3.1 meq/L 3.5-5.1 L (BEAKER) (test code = 379) CHLORIDE (BEAKER) 101 meq/L 98-107 (test code = 382) CO2 (BEAKER) 27 meq/L 22-29 (test code = 355) BLOOD UREA 14 mg/dL 7-21 NITROGEN (BEAKER) (test code = 354) CREATININE 0.80 mg/dL 0.57-1.25 (BEAKER) (test code = 358) GLUCOSE RANDOM 175 mg/dL 70-105 H (BEAKER) (test code = 652) CALCIUM (BEAKER) 8.3 mg/dL 8.4-10.2 L (test code = 697) EGFR (BEAKER) 105 Interpretatio n of eGFR (test code = mL/min/1.73 values Stage De scription 1092) sq m Result G1 Bobbi l or high >=90 G2 Mildly decreased 60-89 G3a Mildl y to moderately 45-5 9 G3b Moderately to s everely 30-44 G4 Severl y decreased 15-29 G5 Kidney failure <15Reported eGF R is based on the CKD-EPI 2020 equation that d oes not use a race coefficientEsti mated GFR is not as accur ate as Creatinine Renata eder in predicting glom erular filtration rate . Estimated GFR is not appl icable for dialysis patien ts Sales Consultant 08:00:27 Test Item Value Reference Range Interpretation Comments MAGNESIUM (BEAKER) (test code = 2.0 mg/dL 1.6-2.6 627) Sales Consultant Insurance ID - [id number] (HEMOGRAM ONLY)2023-03-03 06:59:10 Test Item Value Reference Range Interpretation Comments WHITE BLOOD CELL COUNT (BEAKER) 13.8 K/ L 3.5-10.5 H (test code = 775) RED BLOOD CELL COUNT (BEAKER) 3.71 M/ L (test code = 761) HEMOGLOBIN (BEAKER) (test code = 9.1 GM/DL 13.7-17.5 L 410) HEMATOCRIT (BEAKER) (test code = 29.9 % 40.1-51.0 L 411) MEAN CORPUSCULAR VOLUME (BEAKER) 81 fL 79-92 (test code = 753) MEAN CORPUSCULAR HEMOGLOBIN 24.5 pg 25.7-32.2 L (BEAKER) (test code = 751) MEAN CORPUSCULAR HEMOGLOBIN CONC 30.4 GM/DL 32.3-36.5 L (BEAKER) (test code = 752) RED CELL DISTRIBUTION WIDTH 14.6 % 11.6-14.4 H (BEAKER) (test code = 412) PLATELET COUNT (BEAKER) (test 233 K/CU MM 150-450 code = 756) MEAN PLATELET VOLUME (BEAKER) 12.1 fL 9.4-12.4 (test code = 754) NUCLEATED RED BLOOD CELLS 0 /100 WBC 0-0 (BEAKER) (test code = 413) POCT-GLUCOSE [id number] 06:38:41 Test Item Value Reference Range Interpretation Comments POC-GLUCOSE METER 179 mg/dL 70-110 H : TESTED A T [facility] 6720 (BEAKER) (test code = [facility], 153) [id number]: Sales Consultant Insurance/Techni rachel ID = [id number] for Yobany Bocanegra POCT-GLUCOSE [id number] 02:57:58 Test Item Value Reference Range Interpretation Comments POC-GLUCOSE METER 157 mg/dL 70-110 H : TESTED A T [facility] 6720 (BEAKER) (test code = [facility], 1538) [address]: Sales Consultant Insurance/Techni rachel ID = [id number] for Yobany Bocanegra POCT-GLUCOSE [id number] 18:34:41 Test Item Value Reference Range Interpretation Comments POC-GLUCOSE METER 126 mg/dL 70-110 H : TESTED A T [facility] 6720 (BEAKER) (test code [facility], = 1538) 70254: Sales Consultant Insurance/Techni rachel ID = [id number] for Branch , Clintnisha US drainage with cath [id number] 16:49:07PROCEDURE: Cholecystostomy tube placement Procedural PersonnelAttending physician(s): Akbar Johnson physician(s): NoneResident physician(s): NoneAdv[facility]. [facility] practice provider(s): None Pre-procedure diagnosis: Acute cholecystitisPost-procedure diagnosis: SameIndication: Acute cholecystitisAdditional clinical history: None Complications: No immediate complications.[facility] DRAINAGE WITH CATH [id number] 16:49:07 [facility] : 1965 Sex: MPROCEDURE: Cholecystostomy tube placementProcedural PersonnelAttending physician(s): Denzel Johnsonphysician(s): NoneResident physician(s): NoneAdvang. [facility] practice provider(s): NonePre-procedure diagnosis: Acute cholecystitisPost-procedure diagnosis: SameIndication: Acute cholecystitisAdditional clinical history: NoneComplications: No immediate complications.IMPRESSION:Insertion of cholecystostomy tube with drainage of dark bile.Plan: Catheter must remain in place for at least 4-6 weeks. Recommend cholecystogram prior to removal to evaluate for cystic ductpatency. PROCEDURE SUMMARY:- Cholecystostomy tube placement under ultrasound guidance- Additional procedure(s): NonePROCEDURE DETAILS:Pre-procedureConsent: Informed consent forthe procedure including risks, benefitsand alternatives was obtained and time-out was performed prior to theprocedure.Preparation: The site was prepared and draped using maximal sterilebarrier technique including cutaneous antisepsis.Anesthesia/sedationLevel of anesthesia/sedation: No sedationAnesthesia/sedation administered by: Not applicableTotal intra-service sedation time (minutes): 0Cholecystostomy tube placementInitial imaging was performed. Local anesthesia was administered. Thegallbladder was accessed via a transhepatic approach using trocartechnique and a cholecystostomy tube was placed. Position within thegallbladder was confirmed. Initial imaging findings: Dilated gallbladder containingstones andsludge with pericholecystic fluid and gallbladder wall thickeningCholecystostomy tube placed: 8.5 Togolese multipurpose drainage catheterExternal catheter securement: Non-absorbable sutureContrastContrast agent: NoneContrast volume (mL): 0Radiation DoseCT dose length product (mGy-cm): 0 Additional DetailsAdditional description of procedure: NoneEquipment details: NoneSpecimens removed: mL of fluid was aspirated. A sample was not sent foranalysis.Estimated blood loss (mL): Less than 10Standardized report: [email or web address] name: Marco Lewis attest that I was present for the entire procedure. I reviewed thestored images and agree with the report as written.Electronically Signed By: Marco Cabezas03/02/2023 16:51 CDTWorkstation Name: [id number] 12:02:43 Test Item Value Reference Range Interpretation Comments POC-GLUCOSE METER 114 mg/dL 70-110 H : TESTED A T [facility] 6720 ([employer]ik[employer]) (test code [facility], = 1538) 81524: Sales Consultant Insurance/Techni rachel ID = [id number] for Branch , Clintnisha POCT-GLUCOSE [id number] 09:02:12 Test Item Value Reference Range Interpretation Comments POC-GLUCOSE METER 143 mg/dL 70-110 H : TESTED A T [facility] 6720 ([employer]) (test code [facility], = 1538) 54749: Sales Consultant Insurance/Techni rachel ID = [id number] for Branch , Clintnisha HEMOGLOBIN [id number] 08:55:47 Test Item Value Reference Range Interpretation Comments HEMOGLOBIN A1C 8.4 % See_Comment H [Automated m essage] ELECTROPHORESIS (BEAKER) The system which (test code = 3811) generated this result transmitted ref erence range: <=5.6%. The reference range was not used to int erpret this result as normal/abnormal . "The A1c is measured using a NGSP-certified method. HbA1c value equal to or greater than 6.5% as thediagnosis cutoff for diabetes. An HbA1c value of 5.7- 6.4% indicates increased risk for diabetes (prediabetes)."Sales Consultant Insurance ID - ADMPOCT- GLUCOSE [id number] 05:51:22 Test Item Value Reference Range Interpretation Comments POC-GLUCOSE METER 150 mg/dL 70-110 H : TESTED A T [facility] 6720 (BEAKER) (test code = [facility] [place], 1538) 40021: Sales Consultant Insurance/Techni rachel ID = [id number] for On sydneemandyYobany ac (CELLAVISION MANUAL DIFF)2023-03-02 04:31:37 Test Item Value Reference Range Interpretation Comments NEUTROPHILS - REL 85 % (CELLAVISION)(BEAKER) (test code = 2816) LYMPHOCYTES - REL 6 % (CELLAVISION)(BEAKER) (test code = 2817) MONOCYTES - REL 4 % (CELLAVISION)(BEAKER) (test code = 2818) EOSINOPHILS - REL 1 % (CELLAVISION)(BEAKER) (test code = 2819) METAMYELOCYTES - REL 1 % 0-0 H (CELLAVISION)(BEAKER) (test code = 2821) BANDS - REL (CELLAVISION)(BEAKER) 3 % 0-10 (test code = 2826) NEUTROPHILS - ABS 16.75 K/ul 1.78-5.38 H (CELLAVISION)(BEAKER) (test code = 2830) LYMPHOCYTES - ABS 1.18 K/ul 1.32-3.57 L (CELLAVISION)(BEAKER) (test code = 2831) MONOCYTES - ABS 0.79 K/uL 0.30-0.82 (CELLAVISION)(BEAKER) (test code = 2832) EOSINOPHILS - ABS 0.20 K/uL 0.04-0.54 (CELLAVISION)(BEAKER) (test code = 2834) METAMYELOCYTES - ABS 0.20 K/uL 0.00-0.00 H (CELLAVISION)(BEAKER) (test code = 2836) BANDS - ABS (CELLAVISION)(BEAKER) 0.59 K/uL 0.00-0.80 (test code = 2840) TOTAL COUNTED (BEAKER) (test code 100 = 1351) PLT MORPHOLOGY (BEAKER) (test code Normal = 486) SMUDGE CELLS (BEAKER) (test code = Present 1371) ANISOCYTOSIS (BEAKER) (test code = 1+ few 961) MACROCYTES (BEAKER) (test code = 1+ few 964) POIKILOCYTES (BEAKER) (test code = 1+ few 966) OVALOCYTES (BEAKER) (test code = 1+ few 477) KARYN CELLS (BEAKER) (test code = 1+ few 474) PLATELET CONCENTRATION Adequate (CELLAVISION)(BEAKER) (test code = 3438) Sales Consultant Insurance ID - Theresa comments: Slide comments:CBC W/PLT COUNT & AUTO [id number] 04:31:36 Test Item Value Reference Range Interpretation Comments WHITE BLOOD CELL COUNT (BEAKER) 19.7 K/ L 3.5-10.5 H (test code = 775) RED BLOOD CELL COUNT (BEAKER) 4.24 M/ L (test code = 761) HEMOGLOBIN (BEAKER) (test code = 10.4 GM/DL 13.7-17.5 L 410) HEMATOCRIT (BEAKER) (test code = 33.9 % 40.1-51.0 L 411) MEAN CORPUSCULAR VOLUME (BEAKER) 80 fL 79-92 (test code = 753) MEAN CORPUSCULAR HEMOGLOBIN 24.5 pg 25.7-32.2 L (BEAKER) (test code = 751) MEAN CORPUSCULAR HEMOGLOBIN CONC 30.7 GM/DL 32.3-36.5 L (BEAKER) (test code = 752) RED CELL DISTRIBUTION WIDTH 14.5 % 11.6-14.4 H (BEAKER) (test code = 412) PLATELET COUNT (BEAKER) (test 256 K/CU MM 150-450 code = 756) MEAN PLATELET VOLUME (BEAKER) 12.1 fL 9.4-12.4 (test code = 754) NUCLEATED RED BLOOD CELLS 0 /100 WBC 0-0 (BEAKER) (test code = 413) PROTHROMBIN TIME/[id number] 02:52:48 Test Item Value Reference Range Interpretation Comments PROTIME (BEAKER) (test code = 16.8 seconds 11.9-14.2 H 759) INR (BEAKER) (test code = 370) 1.37 <=5.90 RECOMMENDED COUMADIN/WARFARIN INR THERAPY RANGESSTANDARD DOSE: 2.0 - 3.0 Includes: PROPHYLAXIS for venous thrombosis, systemic embolization; TREATMENT for venous thrombosis and/or pulmonary embolus.HIGH RISK: Target INR is 2.5-3.5 for patients with mechanical heart valves.[id number] 02:09:22 Test Item Value Reference Range Interpretation Comments PHOSPHORUS (BEAKER) (test code = 2.9 mg/dL 2.3-4.7 604) Sales Consultant 02:09:22 Test Item Value Reference Range Interpretation Comments LIPASE (BEAKER) (test code = 749) 9 U/L 8-78 Sales Consultant Insurance ID - BSCOMPREHENSIVE METABOLIC [id number] 02:09:21 Test Item Value Reference Range Interpretation Comments TOTAL PROTEIN 7.1 gm/dL 6.0-8.3 (BEAKER) (test code = 770) ALBUMIN (BEAKER) 3.3 g/dL 3.5-5.0 L (test code = 1145) ALKALINE 163 U/L 40-150 H PHOSPHATASE (BEAKER) (test code = 346) BILIRUBIN TOTAL 1.0 mg/dL 0.2-1.2 (BEAKER) (test code = 377) SODIUM (BEAKER) 135 meq/L 136-145 L (test code = 381) POTASSIUM (BEAKER) 3.6 meq/L 3.5-5.1 (test code = 379) CHLORIDE (BEAKER) 99 meq/L 98-107 (test code = 382) CO2 (BEAKER) (test 26 meq/L 22-29 code = 355) BLOOD UREA 26 mg/dL 7-21 H NITROGEN (BEAKER) (test code = 354) CREATININE 1.18 mg/dL 0.57-1.25 (BEAKER) (test code = 358) GLUCOSE RANDOM 198 mg/dL 70-105 H (BEAKER) (test code = 652) CALCIUM (BEAKER) 9.0 mg/dL 8.4-10.2 (test code = 697) AST (SGOT) 25 U/L 5-34 (BEAKER) (test code = 353) ALT (SGPT) 107 U/L 6-55 H (BEAKER) (test code = 347) EGFR (BEAKER) 74 Interpretatio n of eGFR (test code = 1092) mL/min/1.[address] age Description sq m Result G1 Bobbi l or high >=90 G2 Mildly decreased 60-89 G3a Mildl y to moderately 45-5 9 G3b Moderately to s everely 30-44 G4 Severl y decreased 15-29 G5 Kidney failure <15Reported eGF R is based on the CKD-EPI 2020 equation that d oes not use a race coefficientEsti mated GFR is not as accur ate as Creatinine Renata eder in predicting glom erular filtration rate . Estimated GFR is not appl icable for dialysis patien ts Sales Consultant 02:09:21 Test Item Value Reference Range Interpretation Comments MAGNESIUM (BEAKER) (test code = 2.5 mg/dL 1.6-2.6 627) Sales Consultant Insurance ID - BSPOCT-GLUCOSE [id number] 00:44:06 Test Item Value Reference Range Interpretation Comments POC-GLUCOSE METER 190 mg/dL 70-110 H : [facility] (BEAKER) (test code = [facility] [place], 1538) [address]: Sales Consultant Insurance/Techni rachel ID = [id number] for On Yobany byrd
[2023-04-25 13:50] LABS: Absolute Lymphocytes (CBC) 2.1 K/uL (0.7-4.9); Hematocrit 35.2 % (39.6-49.0); Lymphocytes % 29.6 % (15.3-44.8); MPV 9.4 fL (7.6-11.3); Platelets 172 thou/uL (152-406); RBC Red Blood Cell Count 4.46 M/uL (4.33-5.43)
[2023-04-25] MEDS ORDERED: NA CHLORIDE 0.9% 1,000 ML ONE (14:26)
[2023-04-25 15:01] LABS: Albumin 3.5 g/dL (3.4-5.0); Bilirubin Total 0.7 mg/dL (0.2-1.0); Potassium 3.3 mEq/L (3.5-5.1); Protein, Total 7.7 g/dL (6.4-8.2)
--- NOTE | 2023-04-25 15:44 | RAD REPORT ---
EXAM DESCRIPTION: CT - Abdomen Pelvis W Contrast - 04/25/2023 3:23 pm CLINICAL HISTORY: Abdominal pain COMPARISON: February 2023 TECHNIQUE: Computed axial tomography of the abdomen pelvis was obtained. 100 cc Isovue-300 was admin istered intravenously. Oral contrast was not requested which limits evaluation of bowel and appendix All CT scans are performed using dose optimization technique as appropriate and may include automated exposure control or mA/KV adjustment according to patient size. FINDINGS: Percutaneous drain has been placed into the gallbladder. The gallbladder has been decompre ssed. Gallbladder wall remains thickened Liver, spleen, pancreas, adrenals and kidneys are unremarkable Normal appendix No evidence of diverticulitis IMPRESSION: Placement of a percutaneous drain into the gallbladder with decompression. Gallbladder w all remains thickened
--- NOTE | 2023-04-25 15:52 | EDPHYS ---
Physician Documentation [facility] monetttheresa Name: Chang Carty Age: 57 yrs Sex: Male : 1965 Arrival Date: 04/25/2023 Time: 12:10 Bed IW1 Private MD: ED Physician Delroy Arboleda HPI: 04/25 13:14 This 57 yrs old Black Male presents to ER via Ambulatory with complaints of Draining deepak Tube Problem. 13:14 The patient presents with abdominal pain in the upper abdomen. Onset: The deepak symptoms/episode began/occurred 2 day(s) ago. The symptoms do not radiate. Associated signs and symptoms: none. The symptoms are described as achy. Modifying factors: The symptoms are alleviated by nothing, the symptoms are aggravated by nothing. Severity of pain: At its worst the pain was very mild in the emergency department the pain is unchanged. The patient has not experienced similar symptoms in the past. Historical: - Allergies: 12:49 PENICILLINS; ko1 - PMHx: 12:49 CVA; L sided deficits; Diabetes - IDDM; Hypertension; ko1 - PSHx: 12:49 Arm - Left (en); ko1 - Immunization history:: Adult Immunizations up to date. - Social history:: Smoking status: Patient denies any tobacco usage or history of. - Family history:: not pertinent. ROS: 13:14 Constitutional: Negative for fever, chills, and weight loss, Eyes: Negative for injury, deepak pain, redness, and discharge, ENT: Negative for injury, pain, and discharge, Neck: Negative for injury, pain, and swelling, Cardiovascular: Negative for chest pain, palpitations, and edema, Respiratory: Negative for shortness of breath, cough, wheezing, and pleuritic chest pain, Back: Negative for injury and pain, : Negative for injury, bleeding, discharge, and swelling, MS/Extremity: Negative for injury and deformity, Skin: Negative for injury, rash, and discoloration, Neuro: Negative for headache, weakness, numbness, tingling, and seizure, Psych: Negative for depression, anxiety, suicide ideation, homicidal ideation, and hallucinations, Allergy/Immunology: Negative for hives, rash, and allergies, Endocrine: Negative for neck swelling, polydipsia, polyuria, polyphagia, and marked weight changes, 13:14 Abdomen/GI: Positive for abdominal pain, of the right upper quadrant, Exam: 13:14 Constitutional: This is a well developed, well nourished patient who is awake, alert, deepak and in no acute distress. Head/Face: Normocephalic, atraumatic. Eyes: Pupils equal round and reactive to light, extra-ocular motions intact. Lids and lashes normal. Conjunctiva and sclera are non-icteric and not injected. Cornea within normal limits. Periorbital areas with no swelling, redness, or edema. ENT: Nares patent. No nasal discharge, no septal abnormalities noted. Tympanic membranes are normal and external auditory canals are clear. Oropharynx with no redness, swelling, or masses, exudates, or evidence of obstruction, uvula midline. Mucous membranes moist. Neck: Trachea midline, no thyromegaly or masses palpated, and no cervical lymphadenopathy. Supple, full range of motion without nuchal rigidity, or vertebral point tenderness. No Meningismus. Chest/axilla: Normal chest wall appearance and motion. Nontender with no deformity. No lesions are appreciated. Cardiovascular: Regular rate and rhythm with a normal S1 and S2. No gallops, murmurs, or rubs. Normal PMI, no JVD. No pulse deficits. Respiratory: Lungs have equal breath sounds bilaterally, clear to auscultation and percussion. No rales, rhonchi or wheezes noted. No increased work of breathing, no retractions or nasal flaring. Abdomen/GI: Soft, non-tender, with normal bowel sounds. No distension or tympany. No guarding or rebound. No evidence of tenderness throughout. Back: No spinal tenderness. No costovertebral tenderness. Full range of motion. Male : Normal genitalia with no discharge or lesions. Skin: Warm, dry with normal turgor. Normal color with no rashes, no lesions, and no evidence of cellulitis. MS/ Extremity: Pulses equal, no cyanosis. Neurovascular intact. Full, normal range of motion. Neuro: Awake and alert, GCS 15, oriented to person, place, time, and situation. Cranial nerves II-XII grossly intact. Motor strength 5/5 in all extremities. Sensory grossly intact. Cerebellar exam normal. Normal gait. Psych: Awake, alert, with orientation to person, place and time. Behavior, mood, and affect are within normal limits. Vital Signs: 12:45 BP 125 / 74; Pulse 73; Resp 18; Temp 98.3; Pulse Ox 100% ; ko1 MDM: 12:15 Patient medically screened. deepak 13:17 Differential diagnosis: cholecystitis, Cholelithiasis, non-specific abd pain, deepak pancreatitis, Peptic Ulcer Disease. Data reviewed: vital signs, nurses notes, lab test result(s), radiologic studies, CT scan. Consideration of Admission/Observation Escalation of care including admission/observation considered. I considered the following discharge prescriptions or medication management in the emergency department Medications were administered in the Emergency Department. See MAR. Independent interpretation of the following test(s) in the Emergency Department CT Scan: My interpretation is ct ab/pelvis. Test considered but Not performed: EKG: no ekg. Care significantly affected by the following chronic conditions: Diabetes, Hypertension, Obesity. Counseling: I had a detailed discussion with the patient and/or guardian regarding the historical points, exam findings, and any diagnostic results supporting the discharge/admit diagnosis, lab results, radiology results, the need for outpatient follow up, for definitive care, a general surgeon. 04/25 13:01 Order name: CBC with Diff [facility] 04/25 13:01 Order name: Comprehensive Metabolic Panel; Complete Time: 15:21 deepak 04/25 13:01 Order name: Lipase; Complete Time: 15:21 [facility] 04/25 13:01 Order name: CT Abd/Pelvis - IV Contrast Only; Complete Time: 15:52 [facility] 04/25 13:39 Order name: Labs - recollect needed: recollect green top please; Complete Time: 14:26 em 04/25 15:22 Order name: PO challenge: juice; Complete Time: 15:56 deepak Administered Medications: 14:27 Drug: NS 0.9% IV 1000 ml IV at 1 bolus Per protocol; 1000 mL bolus Route: IV; Rate: 1 jl7 bolus; Site: right antecubital; 16:09 Follow up: Response: No adverse reaction; IV Status: Completed infusion cp4 16:06 Drug: Potassium PO Effervescent Tablet 25 mEq PO once; dissolve in 4 ounces of water or cp4 juice Route: PO; 16:09 Follow up: Response: No adverse reaction cp4 Disposition Summary: 04/25/23 15:51 Discharge Ordered Notes: Location: Home deepak Problem: new deepak Symptoms: have improved deepak Condition: Stable deepak Diagnosis - Presence of other specified devices - Cholecystostomy deepak - Hypokalemia deepak Followup: deepak - With: Private Physician - When: 2 - 3 days - Reason: Recheck today's complaints, Continuance of care, Re-evaluation by your physician Discharge Instructions: - Discharge Summary Sheet deepak - Potassium Content of Foods deepak - Cholelithiasis deepak - Surgical Drain Home Care deepak - Hypokalemia deepak Forms: - Medication Reconciliation Form deepak - Thank You Letter deepak - Antibiotic Education deepak - Prescription Opioid Use deepak - Patient Portal Instructions deepak - Leadership Thank You Letter deepak Signatures: Dispatcher [employer] EDDelroy Beal MD MD cha Martinez, Eric emZarina Rodriguez RN RN jl7 Zuleima Izquierdo RN RN ko1 Hafsa Lamb cp4
--- NOTE | 2023-04-25 15:52 | ER ---
Nurse's Notes [facility] Name: Chang Carty Age: 57 yrs Sex: Male : 1965 Arrival Date: 04/25/2023 Time: 12:10 Bed IW1 Private MD: Diagnosis: Presence of other specified devices-Cholecystostomy;Hypokalemia Presentation: 04/25 12:45 Chief complaint: Patient states: feels like richi drain is dislodged, its not draining ko1 much, had it placed mar 02, 2023. Coronavirus screen: At this time, the client does not indicate any symptoms associated with coronavirus-19. Ebola Screen: No symptoms or risks identified at this time. Initial Sepsis Screen: Does the patient meet any 2 criteria? No. Patient's initial sepsis screen is negative. Does the patient have a suspected source of infection? No. Patient's initial sepsis screen is negative. Risk Assessment: Do you want to hurt yourself or someone else? Patient reports no desire to harm self or others. Onset of symptoms is unknown. 12:45 Method Of Arrival: Ambulatory ko1 12:45 Acuity: NEYMAR 3 ko1 Triage Assessment: 12:49 General: Appears in no apparent distress. Behavior is calm, cooperative, appropriate ko1 for age. Pain: Complains of pain in abdomen. Historical: - Allergies: 12:49 PENICILLINS; ko1 - PMHx: 12:49 CVA; L sided deficits; Diabetes - IDDM; Hypertension; ko1 - PSHx: 12:49 Arm - Left (en); ko1 - Immunization history:: Adult Immunizations up to date. - Social history:: Smoking status: Patient denies any tobacco usage or history of. - Family history:: not pertinent. Screenin:07 [facility] ED Fall Risk Assessment (Adult) History of falling in the last 3 months, cp4 including since admission No falls in past 3 months (0 pts) Confusion or Disorientation No (0 pts) Intoxicated or Sedated No (0 pts) Impaired Gait No (0 pts) Mobility Assist Device Used No (0 pt) Altered Elimination No (0 pt) Score/Fall Risk Level 0 - 2 = Low Risk Oriented to surroundings, Maintained a safe environment, Educated pt \T\ family on fall prevention, incl call for assistance when getting out of bed, Hourly rounding (assess needs \T\ fall precautionary measures) done. Abuse screen: Denies threats or abuse. Nutritional screening: No deficits noted. Tuberculosis screening: No symptoms or risk factors identified. Assessment: 16:07 Reassessment: No changes from previously documented assessment. cp4 Vital Signs: 12:45 BP 125 / 74; Pulse 73; Resp 18; Temp 98.3; Pulse Ox 100% ; ko1 ED Course: 12:13 Patient arrived in ED. mg5 12:15 Delroy Arboleda MD is Attending Physician. [facility] 12:49 Triage completed. ko1 12:49 Arm band placed on right wrist. Patient placed in waiting room, Patient notified of ko1 wait time. 13:26 Inserted saline lock: 22 gauge in right antecubital area, using aseptic technique. em1 Blood collected. 15:24 CT Abd/Pelvis - IV Contrast Only In Process Unspecified. EDMS 16:07 Fall risk band placed. Side rails up X 1. cp4 16:07 No provider procedures requiring assistance completed. intact, bleeding controlled, No cp4 redness/swelling at site. Pressure dressing applied. 16:08 Provided Education on: drainage problem. cp4 Administered Medications: 14:27 Drug: NS 0.9% IV 1000 ml IV at 1 bolus Per protocol; 1000 mL bolus Route: IV; Rate: 1 jl7 bolus; Site: right antecubital; 16:09 Follow up: Response: No adverse reaction; IV Status: Completed infusion cp4 16:06 Drug: Potassium PO Effervescent Tablet 25 mEq PO once; dissolve in 4 ounces of water or cp4 juice Route: PO; 16:09 Follow up: Response: No adverse reaction cp4 Medication: 16:07 VIS not applicable for this client. cp4 Outcome: 15:51 Discharge ordered by . [facility] 16:07 Discharged to home ambulatory, cp4 16:07 Condition: stable 16:07 Discharge instructions given to patient, Instructed on discharge instructions, follow up and referral plans. Demonstrated understanding of instructions, follow-up care, 16:10 Patient left the ED. cp4 Signatures: Dispatcher [employer] EDWA Delroy Arboleda MD MD cha Martinez, Eric em1 Zarina Williamson RN RN jl7 Zuleima Izquierdo RN RN ko1 Yancy Lee mg5 Hafsa Lamb cp4
[2023-04-25] MEDS ORDERED: POTASSIUM 25 MEQ EFFERV TAB ONE (16:11)
[2023-04-25 17:01] LABS: Blood Morphology Comment NOT SEEN (NOT SEEN); Platelet Estimate ADEQ; White Blood Cell Scan OK (OK)
[2023-04-25 17:16] VITALS: BP 125/74; TEMP 98.3; O2SAT 100
== END 2023-04-25 16:10 | disposition home or self-care (01) ==
LOC: ER 12:10
DX: E87.6 Hypokalemia (principal); R10.11 Right upper quadrant pain; Z97.8 Presence of other specified devices; Z88.0 Allergy status to penicillin
CPT/HCPCS: 96361; 85025; 36415; 83690; 80053; 74177; 96360; 99284; Q9967; J7030

== ENCOUNTER → 2023-06-12 | Emergency (ER) | payer OTHER ==
[~2023-06-12] MED LIST: CEFTRIAXONE 1000 MG/VIAL ONE; DIPHENHYDRAMINE 50 MG/ML VIAL ONE; HALOPERIDOL LACT 5 MG/ML INJ ONE; MAGNES/ALUMIN/SIMET 30ML UCUP ONE; METOCLOPRAMIDE 10 MG/2mL INJ ONE; METRONIDAZOLE 500mg IVPB 500 MG/100 ML BAG IV ONE; NA CHLORIDE 0.9% 1,000 ML ONE; PANTOPRAZOLE 40 MG INJ ONE
[2023-06-12 19:24] LABS: Absolute Lymphocytes (CBC) 0.9 K/uL (0.7-4.9); Hematocrit 26.7 % (39.6-49.0); Lymphocytes % 5.8 % (15.3-44.8); MCV 77.1 fL (80-100); MPV 8.7 fL (7.6-11.3); Platelets 405 thou/uL (152-406); RBC Red Blood Cell Count 3.47 M/uL (4.33-5.43)
--- NOTE | 2023-06-12 19:54 | RAD REPORT ---
EXAM DESCRIPTION: RAD - Chest Single View - 06/12/2023 7:47 pm CLINICAL HISTORY: CHEST PAIN Chest pain. COMPARISON: <Comparisons> FINDINGS: Portable technique limits examination quality. The lungs are grossly clear. Right hemidiaphragm is chronically elevated. The heart is normal in size . No displaced fractures. IMPRESSION: No acute intrathoracic process suspected.
[2023-06-12 20:11] LABS: Albumin 1.8 g/dL (3.4-5.0); Bilirubin Direct 2.3 mg/dL (0-0.2); Bilirubin Indirect, Calculated 1.3 mg/dL (0.2-0.8); Bilirubin Total 3.6 mg/dL (0.2-1.0); Protein, Total 7.9 g/dL (6.4-8.2); Troponin High Sensitivity 6.2 pg/mL (<58.9)
[2023-06-12 20:12] LABS: Magnesium 2.1 mg/dL (1.6-2.4)
[2023-06-12 20:21] LABS: Anisocytosis 1+; Blood Morphology Comment NOTED (NOT SEEN); Platelet Estimate INCR; White Blood Cell Scan OK (OK)
--- NOTE | 2023-06-12 22:14 | RAD REPORT ---
EXAM DESCRIPTION: CT - Chest Abdomen Pelvis W Cont - 06/12/2023 9:55 pm CLINICAL HISTORY: Chest and abdomen pain. chest/abd pain COMPARISON: Abdomen Pelvis W Contrast dated 04/25/2023; Chest Single View dated 06/12/2023; Abdomen Pelvis W Contrast dated 03/01/2023 TECHNIQUE: Approximately 100 mL nonionic IV contrast was administered to the patient. All CT scans are performed using dose optimization technique as appropriate and may include automated exposure control or mA/KV adjustment according to patient size. FINDINGS: Mild linear atelectasis in the right lung base. The lungs are otherwise clear.Fluid-filled esophagus noted.No pleural or pericardial effusion.No intrathoracic adenopathy. The liver contains a large irregular fluid and air collection measuring superiorly 13 x 10 cm and ext ends inferiorly to 8 multiloculated component in the right upper quadrant measuring 14 x 13 cm abutti ng the colon and stomach. The spleen, pancreas, adrenal glands and kidneys are within normal limits. No bowel obstruction, free air, free fluid or abscess. Normal appendix. Mild fluid is seen both colon ic gutters. No pathologic lymphadenopathy in the abdomen or pelvis. No worrisome osseous finding. IMPRESSION: Very large complex hepatic abscess noted extending into the right upper quadrant.
--- NOTE | 2023-06-12 22:36 | EDPHYS ---
Physician Documentation [facility] Name: Chang Carty Age: 58 yrs Sex: Male : 1965 Arrival Date: 06/12/2023 Time: 18:48 Bed 15 Private MD: ED Physician Ambrose Enrique HPI: 06/12 19:55 This 58 yrs old Black Male presents to ER via EMS with complaints of Chest Pain. rt 19:55 Patient presents to the ED with hiccups, chest pain starting this morning. Patient does rt have multiple hiccups and overall has been not controllable. Reports shortness of breath associated with hiccups. He denies other acute complaints at this time, symptoms are moderate severity, no other aggravating alleviating factors. Historical: - Allergies: 18:56 PENICILLINS; ld1 18:56 tramadol; ld1 - PMHx: 18:56 CVA; L sided deficits; Diabetes - IDDM; Hypertension; ld1 - Immunization history:: Adult Immunizations up to date. - Social history:: Smoking status: Patient denies any tobacco usage or history of. - Family history:: not pertinent. ROS: 19:55 Constitutional: Negative for fever, chills, and weight loss, Abdomen/GI: Negative for rt abdominal pain, nausea, vomiting, diarrhea, and constipation, MS/Extremity: Negative for injury and deformity, Skin: Negative for injury, rash, and discoloration, Neuro: Negative for headache, weakness, numbness, tingling, and seizure, Psych: Negative for depression, anxiety, suicide ideation, homicidal ideation, and hallucinations, 19:55 Cardiovascular: Positive for chest pain, Negative for edema, 19:55 Respiratory: Positive for shortness of breath, Negative for cough, Exam: 19:55 Constitutional: This is a well developed, well nourished patient who is awake, alert, rt and in no acute distress. Head/Face: Normocephalic, atraumatic. Chest/axilla: Normal chest wall appearance and motion. Nontender with no deformity. No lesions are appreciated. Cardiovascular: Regular rate and rhythm with a normal S1 and S2. No gallops, murmurs, or rubs. Normal PMI, no JVD. No pulse deficits. Respiratory: Lungs have equal breath sounds bilaterally, clear to auscultation and percussion. No rales, rhonchi or wheezes noted. No increased work of breathing, no retractions or nasal flaring. Abdomen/GI: Soft, non-tender, with normal bowel sounds. No distension or tympany. No guarding or rebound. No evidence of tenderness throughout. Skin: Warm, dry with normal turgor. Normal color with no rashes, no lesions, and no evidence of cellulitis. MS/ Extremity: Pulses equal, no cyanosis. Neurovascular intact. Full, normal range of motion. Neuro: Awake and alert, GCS 15, oriented to person, place, time, and situation. Cranial nerves II-XII grossly intact. Motor strength 5/5 in all extremities. Sensory grossly intact. Cerebellar exam normal. Normal gait. Psych: Awake, alert, with orientation to person, place and time. Behavior, mood, and affect are within normal limits. 19:55 ECG was reviewed by the Attending Physician. Vital Signs: 18:54 BP 156 / 87; Pulse 99; Resp 18; Temp 98.2(O); Pulse Ox 100% on R/A; Pain 6/10; ld1 18:54 Height 6 ft. 2 in. ; ld1 18:54 Weight 109.32 kg; ld1 19:10 BP 156 / 82; Pulse 96; Resp 17 S; Pulse Ox 100% on R/A; ha1 20:00 BP 148 / 77; Pulse 93; Resp 17 S; Pulse Ox 100% on R/A; ha1 21:00 BP 135 / 83; Pulse 93; Resp 17 S; Pulse Ox 99% on R/A; ha1 22:10 BP 162 / 91; Pulse 94; Resp 17 S; Pulse Ox 99% on R/A; ha1 23:00 BP 160 / 90; Pulse 100; Resp 19 S; Pulse Ox 99% on R/A; ha1 06/13 00:00 BP 168 / 90; Pulse 100; Resp 17 S; Pulse Ox 100% on R/A; ha1 01:01 BP 157 / 81; Pulse 97; Resp 17 S; Pulse Ox 100% on R/A; ha1 06/12 18:54 Pain Scale: Adult ld1 MDM: 06/12 19:01 Patient medically screened. rt 20:22 Data reviewed: vital signs. ED course: Patient signed out to me by previous physician, frank2 in brief patient arrives today for evaluation of chest pain. Patient found to have anemia as well as leukocytosis, plan is to follow-up close of his lab work. Per signout physician, no reported bleeding issues.. 20:29 ED course: Rest of the patient's lab work is remarkable for slight hyponatremia with a ec2 sodium of 128. Liver profile with slight elevation. Troponin within normal ranges. Will obtain CT scan of the chest, abdomen, pelvis for further workup of the patient's complaint. . 22:31 ED course: CT abdomen pelvis shows large complex hepatic abscess, I suspect this is the ec2 source of the patient's frequent hiccups. Will add on a septic workup and empirically treat with antibiotics. . 22:34 ED course: Will add on septic workup given the leukocytosis and the documented heart ec2 rate. Additionally patient was previously seen and managed for his cholecystectomy at [facility], I will initiate transfer to this facility for continuity of care.. 22:59 ED course: I discussed case with the general surgeon at [facility] who agrees ec2 to consult.. 06/12 19:09 Order name: Basic Metabolic Panel; Complete Time: 20:29 rt 06/12 19:09 Order name: CBC with Diff; Complete Time: 20:29 rt 06/12 19:09 Order name: LFT's; Complete Time: 20:29 rt 06/12 19:09 Order name: Magnesium; Complete Time: 20:29 rt 06/12 19:09 Order name: NT PRO-BNP; Complete Time: 20:29 rt 06/12 19:09 Order name: Troponin HS; Complete Time: 20:29 rt 06/12 20:22 Order name: CBC Smear Scan; Complete Time: 20:29 EDMS 06/12 22:33 Order name: Blood Culture Adult (2) ec2 06/12 22:33 Order name: Lactate w/ 2H reflex if indic.; Complete Time: 00:11 ec2 06/12 22:33 Order name: Protime (+inr); Complete Time: 23:37 ec2 06/12 22:33 Order name: Ptt, Activated; Complete Time: 23:37 ec2 06/12 19:09 Order name: XRAY Chest (1 view); Complete Time: 19:55 rt 06/12 20:29 Order name: CT Chest, Abdomen, Pelvis - W/Contrast; Complete Time: 22:31 ec2 06/12 19:09 Order name: EKG; Complete Time: 19: rt 06/12 19:09 Order name: Cardiac monitoring; Complete Time: 19:15 rt 06/12 19:09 Order name: EKG - Nurse/Tech; Complete Time: 19:15 rt 06/12 19:09 Order name: IV Saline Lock; Complete Time: 19:15 rt 06/12 19:09 Order name: Labs collected and sent; Complete Time: 19:15 rt 06/12 19:09 Order name: O2 Per Protocol; Complete Time: 19:15 rt 06/12 19:09 Order name: O2 Sat Monitoring; Complete Time: 19:15 rt 06/12 22:33 Order name: Accucheck; Complete Time: 22:36 ec2 06/12 22:33 Order name: IV Saline Lock - Large Bore; Complete Time: 22:36 ec2 06/12 22:33 Order name: Vital Signs; Complete Time: 22:36 ec2 EC:55 Rate is 95 beats/min. Rhythm is regular, Normal Sinus Rhythm with No ectopy, LAFB. QRS rt [place] is Normal. IA interval is normal. QRS interval is normal. QT interval is normal. No Q waves. Clinical impression: NSR w/ Non-specific ST/T Changes. Administered Medications: 19:30 Drug: metoCLOPramide IVP 10 mg IVP once; over 1 to 2 minutes Route: IVP; Site: right ha1 antecubital; 20:00 Follow up: Response: No adverse reaction; Marked relief of symptoms ha1 19:32 Drug: Pantoprazole IVP 40 mg IVP once Route: IVP; Site: right antecubital; ha1 20:00 Follow up: Response: No adverse reaction; No change in condition ha1 19:34 Drug: Alum-Mag Hydroxide-Simeth PO Suspension (200 mg-200 mg-20 mg/5 mL) 30 ml PO once ha1 Route: PO; 20:00 Follow up: Response: No adverse reaction; Marked relief of symptoms ha1 19:34 Drug: diphenhydrAMINE IVP 25 mg IVP once Route: IVP; Site: left antecubital; ha1 20:00 Follow up: Response: No adverse reaction; Marked relief of symptoms ha1 20:10 Drug: Haloperidol IVP 5 mg IVP once Route: IVP; Site: right antecubital; ha1 23:19 Drug: Rocephin IV 1 grams IV at calculated rate once; Given slow IV push per pharmacy ha1 instructions Route: IV; Rate: calculated rate; Site: right antecubital; 23:26 Drug: metroNIDAZOLE IVPB 500 mg 100 ml IVPB at 200 ml/hr once over 30 mins Volume: 100 ha1 ml; Route: IVPB; Rate: 200 ml/hr; Infused Over: 30 mins; Site: right forearm; 06/13 00:07 Drug: NS 0.9% IV 1000 ml IV at 1 bolus Per protocol; 1000 mL bolus Route: IV; Rate: 1 ha1 bolus; Site: right antecubital; Disposition: 06/12 22:34 Critical Care:. ec2 Disposition Summary: 06/12/23 22:35 Transfer Ordered Notes: Transfer Location: [facility] ec2 Reason: Higher level of care ec2 Condition: Stable ec2 Problem: new ec2 Symptoms: are unchanged ec2 Accepting Physician: transferring doc(06/13/23 01:55) vc1 Diagnosis - Abscess of liver ec2 Forms: - Medication Reconciliation Form ec2 - SBAR form ec2 Critical care time excluding procedures: 22:34 Critical care time: Bedside Care: 30 minutes. Total time: 30 minutes ec2 Signatures: Dispatcher [employer] EDMS Mae Small RN RN ld1 Felipa Jensen RN RN vc1 Jody Skaggs RN RN ha1 Irvin Holt MD MD rt Ambrose Enrique MD MD ec2 Corrections: (The following items were deleted from the chart) 18:57 18:56 Allergies: Sulfa (Sulfonamide Antibiotics); ld1 ld1 18:57 18:56 PSHx: Arm - Left; ld1 ld1 06/13 01:55 06/12 22:35 transferring doc ec2 vc1
--- NOTE | 2023-06-12 22:36 | ER ---
Nurse's Notes [facility] Name: Chang Carty Age: 58 yrs Sex: Male : 1965 Arrival Date: 06/12/2023 Time: 18:48 Bed 15 Private MD: Diagnosis: Abscess of liver Presentation: 06/12 18:54 Chief complaint: EMS states: toned out to patient home for chest pain and shortness of ld1 breath. Coronavirus screen: At this time, the client does not indicate any symptoms associated with coronavirus-19. Ebola Screen: No symptoms or risks identified at this time. Initial Sepsis Screen: Does the patient meet any 2 criteria? No. Patient's initial sepsis screen is negative. Does the patient have a suspected source of infection? No. Patient's initial sepsis screen is negative. Risk Assessment: Do you want to hurt yourself or someone else? Patient reports no desire to harm self or others. Onset of symptoms was June 12, 2023. 18:54 Method Of Arrival: EMS: [facility] ld1 18:54 Acuity: NEYMAR 3 ld1 Triage Assessment: 18:56 General: Appears in no apparent distress. comfortable, Behavior is calm, cooperative, ld1 appropriate for age. Pain: Complains of pain in chest Pain does not radiate. Pain currently is 6 out of 10 on a pain scale. Quality of pain is described as sharp, shooting, throbbing, Pain began suddenly, Is intermittent. EENT: No signs and/or symptoms were reported regarding the EENT system. Neuro: Level of Consciousness is awake, alert, obeys commands, Oriented to person, place, time, situation. Cardiovascular: Capillary refill < 3 seconds Patient's skin is warm and dry. Respiratory: Airway is patent Respiratory effort is even, unlabored. GI: Abdomen is round non-distended. : No signs and/or symptoms were reported regarding the genitourinary system. Derm: No signs and/or symptoms reported regarding the dermatologic system. Musculoskeletal: Reports numbness in left arm and left leg. Historical: - Allergies: 18:56 PENICILLINS; ld1 18:56 tramadol; ld1 - PMHx: 18:56 CVA; L sided deficits; Diabetes - IDDM; Hypertension; ld1 - Immunization history:: Adult Immunizations up to date. - Social history:: Smoking status: Patient denies any tobacco usage or history of. - Family history:: not pertinent. Screenin:10 [facility] ED Fall Risk Assessment (Adult) History of falling in the last 3 months, ha1 including since admission No falls in past 3 months (0 pts) Confusion or Disorientation No (0 pts) Intoxicated or Sedated No (0 pts) Impaired Gait Yes (1 pt) Mobility Assist Device Used Yes (1 pt) Altered Elimination No (0 pt) Score/Fall Risk Level 0 - 2 = Low Risk Oriented to surroundings, Maintained a safe environment, Educated pt \T\ family on fall prevention, incl call for assistance when getting out of bed, Hourly rounding (assess needs \T\ fall precautionary measures) done. Abuse screen: Denies threats or abuse. Denies injuries from another. Nutritional screening: No deficits noted. Tuberculosis screening: No symptoms or risk factors identified. Assessment: 19:10 General: Appears comfortable, Behavior is calm, cooperative. Pain: Complains of pain in ha1 chest Pain does not radiate. Pain currently is 8 out of 10 on a pain scale. Quality of pain is described as pressure, Pain began suddenly. Neuro: Level of Consciousness is awake, alert, obeys commands, Oriented to person, place, time, situation. Cardiovascular: Heart tones S1 S2 present Capillary refill < 3 seconds Patient's skin is warm and dry. Cardiovascular: Reports chest pain. Cardiovascular:. Respiratory: Airway is patent Respiratory effort is even, unlabored, Respiratory pattern is regular, symmetrical. GI: Abdomen is round non-distended, Bowel sounds present X 4 quads. Reports hiccups. : No signs and/or symptoms were reported regarding the genitourinary system. 20:10 Reassessment: Patient and/or family updated on plan of care and expected duration. Pain ha1 level reassessed. Patient is alert, oriented x 3, equal unlabored respirations, skin warm/dry/pink. Patient states feeling better. Patient states symptoms have improved. 21:10 Reassessment: Patient and/or family updated on plan of care and expected duration. Pain ha1 level reassessed. Patient is alert, oriented x 3, equal unlabored respirations, skin warm/dry/pink. 21:50 Reassessment: At CT. ha1 22:10 Reassessment: Patient and/or family updated on plan of care and expected duration. Pain ha1 level reassessed. Patient is alert, oriented x 3, equal unlabored respirations, skin warm/dry/pink. 23:10 Reassessment: Patient and/or family updated on plan of care and expected duration. Pain ha1 level reassessed. Patient is alert, oriented x 3, equal unlabored respirations, skin warm/dry/pink. Patient states feeling better. Patient states symptoms have improved. 06/13 00:13 Reassessment: Patient and/or family updated on plan of care and expected duration. Pain ha1 level reassessed. Patient is alert, oriented x 3, equal unlabored respirations, skin warm/dry/pink. 01:00 Reassessment: Patient and/or family updated on plan of care and expected duration. Pain ha1 level reassessed. Patient is alert, oriented x 3, equal unlabored respirations, skin warm/dry/pink. Vital Signs: 06/12 18:54 BP 156 / 87; Pulse 99; Resp 18; Temp 98.2(O); Pulse Ox 100% on R/A; Pain 6/10; ld1 18:54 Height 6 ft. 2 in. ; ld1 18:54 Weight 109.32 kg; ld1 19:10 BP 156 / 82; Pulse 96; Resp 17 S; Pulse Ox 100% on R/A; ha1 20:00 BP 148 / 77; Pulse 93; Resp 17 S; Pulse Ox 100% on R/A; ha1 21:00 BP 135 / 83; Pulse 93; Resp 17 S; Pulse Ox 99% on R/A; ha1 22:10 BP 162 / 91; Pulse 94; Resp 17 S; Pulse Ox 99% on R/A; ha1 23:00 BP 160 / 90; Pulse 100; Resp 19 S; Pulse Ox 99% on R/A; ha1 06/13 00:00 BP 168 / 90; Pulse 100; Resp 17 S; Pulse Ox 100% on R/A; ha1 01:01 BP 157 / 81; Pulse 97; Resp 17 S; Pulse Ox 100% on R/A; ha1 06/12 18:54 Pain Scale: Adult ld1 ED Course: 06/12 18:54 Patient arrived in ED. ld1 18:56 Triage completed. ld1 18:56 Arm band placed on right wrist. ld1 19:00 [place]ton, Irvin, MD is Attending Physician. rt 19:00 Patient has correct armband on for positive identification. Bed in low position. Call ha1 light in reach. Side rails up X 1. Adult w/ patient. 19:00 Client placed on continuous cardiac and pulse oximetry monitoring. NIBP monitoring ha1 applied. 19:00 Door closed. Warm blanket given. ha1 19:10 Maintain EMS IV. Dressing intact. Good blood return noted. Site clean \T\ dry. Gauge \T\ godfrey 1 site: 18 kallie RAC. 19:15 Jody Skaggs, RN is Primary Nurse. ha1 19:15 Basic Metabolic Panel Sent. ha1 19:16 CBC with Diff Sent. ha1 19:16 LFT's Sent. ha1 19:16 Magnesium Sent. ha1 19:16 NT PRO-BNP Sent. ha1 19:16 Troponin HS Sent. ha1 19:49 XRAY Chest (1 view) In Process Unspecified. EDMS 20:05 Attending Physician role handed off by Irvin Holt MD ec2 20:05 Ambrose Enrique MD is Attending Physician. ec2 20:30 Patient maintains SpO2 saturation greater than 95% on room air. ha1 22:24 CT Chest, Abdomen, Pelvis - W/Contrast In Process Unspecified. EDMS 22:48 Initiated transfer to [facility] spoke with [place]. vk 22:50 Inserted saline lock: 20 gauge in right forearm, using aseptic technique. Blood ha1 collected. 23:14 Blood Culture Adult (2) Sent. ha1 23:14 Lactate w/ 2H reflex if indic. Sent. ha1 23:14 Protime (+inr) Sent. ha1 23:14 Ptt, Activated Sent. ha1 06/13 00:11 Initiated transfer to [facility] RM [id number] Toby Palm , Accepting Admin mali Santos at 0017. vk 01:03 Provided Education on: need for transfer . ha1 01:54 No provider procedures requiring assistance completed. Patient transferred, IV remains vc1 in place. Administered Medications: 06/12 19:30 Drug: metoCLOPramide IVP 10 mg IVP once; over 1 to 2 minutes Route: IVP; Site: right ha1 antecubital; 20:00 Follow up: Response: No adverse reaction; Marked relief of symptoms ha1 19:32 Drug: Pantoprazole IVP 40 mg IVP once Route: IVP; Site: right antecubital; ha1 20:00 Follow up: Response: No adverse reaction; No change in condition ha1 19:34 Drug: Alum-Mag Hydroxide-Simeth PO Suspension (200 mg-200 mg-20 mg/5 mL) 30 ml PO once ha1 Route: PO; 20:00 Follow up: Response: No adverse reaction; Marked relief of symptoms ha1 19:34 Drug: diphenhydrAMINE IVP 25 mg IVP once Route: IVP; Site: left antecubital; ha1 20:00 Follow up: Response: No adverse reaction; Marked relief of symptoms ha1 20:10 Drug: Haloperidol IVP 5 mg IVP once Route: IVP; Site: right antecubital; ha1 23:19 Drug: Rocephin IV 1 grams IV at calculated rate once; Given slow IV push per pharmacy ha1 instructions Route: IV; Rate: calculated rate; Site: right antecubital; 23:26 Drug: metroNIDAZOLE IVPB 500 mg 100 ml IVPB at 200 ml/hr once over 30 mins Volume: 100 ha1 ml; Route: IVPB; Rate: 200 ml/hr; Infused Over: 30 mins; Site: right forearm; 06/13 00:07 Drug: NS 0.9% IV 1000 ml IV at 1 bolus Per protocol; 1000 mL bolus Route: IV; Rate: 1 ha1 bolus; Site: right antecubital; Medication: 06/12 20:30 VIS not applicable for this client. ha1 Outcome: 22:35 ER care complete, transfer ordered by . ec2 06/13 01:55 Transferred by ground EMS to [facility], Transfer form completed. vc1 X-rays sent w/ patient. Condition: good Instructed on the need for transfer, 01:55 Patient left the ED. vc1 Signatures: Dispatcher [employer] EDMae Parham RN RN ld1 Felipa Jensen RN RN vc1 Jody Skaggs RN RN ha1 Irvin Holt MD MD rt Corral, Edwin, MD MD ec2 Shikha Bass Corrections: (The following items were deleted from the chart) 06/12 18:57 18:56 Allergies: Sulfa (Sulfonamide Antibiotics); ld1 ld1 18:57 18:56 PSHx: Arm - Left; ld1 ld1 20:49 20:10 Reassessment: Patient and/or family updated on plan of care and expected ha1 duration. Pain level reassessed. Patient is alert, oriented x 3, equal unlabored respirations, skin warm/dry/pink. ha1 06/13 01:02 06/12 19:10 Maintain EMS IV. Dressing intact. Good blood return noted. Site clean \T\ ha1 dry. Gauge \T\ site: 20 kallie RAC. ha1
[2023-06-12 23:33] LABS: Protime INR 1.47
[2023-06-13 07:41] VITALS: TEMP 98.2; O2SAT 100
[2023-06-13 07:55] VITALS: BP 157/81
== END ==
LOC: ER 18:48
DX: K75.0 Abscess of liver (principal); E11.9 Type 2 diabetes mellitus without complications; I10 Essential (primary) hypertension; Z88.0 Allergy status to penicillin; Z88.5 Allergy status to narcotic agent; Z86.73 Personal history of transient ischemic attack (TIA), and cerebral infarction without residual deficits
CPT/HCPCS: 87040 ×2; 85025; 80048; 36415; 83735; 85610; 80076; 83605; 85730; 84484; 83880; 71260; 74177; 71045; Q9967; J1630; J2765; J1200; C9113; J0696; 93005

== ENCOUNTER → 2023-08-19 | Emergency (ER) | payer OTHER ==
[~2023-08-19] MED LIST changes: -CEFTRIAXONE 1000 MG/VIAL ONE; +CIPROFLOXACIN HCL 500 MG TAB ONE; -DIPHENHYDRAMINE 50 MG/ML VIAL ONE; -HALOPERIDOL LACT 5 MG/ML INJ ONE; -MAGNES/ALUMIN/SIMET 30ML UCUP ONE; -METOCLOPRAMIDE 10 MG/2mL INJ ONE; -NA CHLORIDE 0.9% 1,000 ML ONE; -PANTOPRAZOLE 40 MG INJ ONE
[2023-08-19 20:54] LABS: Absolute Basophils 0.1 K/uL (0-0.5); Absolute Eosinophils 0.1 K/uL (0-0.5); Absolute Lymphocytes (CBC) 1.5 K/uL (0.7-4.9); Absolute Monocytes 0.4 K/uL (0.1-1.3); Absolute Neutrophil 3.4 K/uL (1.8-8.0); Eosinophils % 1.5 % (0-4.4); Hematocrit 29.8 % (39.6-49.0); Hemoglobin 9.4 g/dL (13.6-17.9); Lymphocytes % 27.4 % (15.3-44.8); MCH 24.2 pg (27.0-35.0); MCHC 31.6 g/dL (32.0-36.0); MCV 76.5 fL (80-100); MPV 9.1 fL (7.6-11.3); Neutrophils % 62.1 % (41.7-73.7); Platelets 204 thou/uL (152-406); RBC Red Blood Cell Count 3.89 M/uL (4.33-5.43)
[2023-08-19 21:02] LABS: PT Prothrombin Time 13.5 SECONDS (9.5-12.5); PTT, Activated Partial Thromb 36.2 SECONDS (24.3-36.9); Protime INR 1.23
[2023-08-19 21:30] LABS: Albumin 3.1 g/dL (3.4-5.0); Albumin/Globulin Ratio 0.9 (1.1-1.8); Bilirubin Direct 0.2 mg/dL (0-0.2); Bilirubin Indirect, Calculated 0.3 mg/dL (0.2-0.8); Bilirubin Total 0.5 mg/dL (0.2-1.0); Globulin 3.6 g/dL (2.3-3.5); Magnesium 1.9 mg/dL (1.6-2.4); Protein, Total 6.7 g/dL (6.4-8.2); Troponin High Sensitivity 6.6 pg/mL (<58.9)
--- NOTE | 2023-08-19 22:14 | RAD REPORT ---
EXAM DESCRIPTION: Sravan Single View08/19/2023 9:20 pm CLINICAL HISTORY: Hypertension/rectal bleeding COMPARISON: May 2023 FINDINGS: The lungs appear clear of acute infiltrate. The heart is normal size IMPRESSION: No acute abnormalities displayed
--- NOTE | 2023-08-19 22:33 | RAD REPORT ---
EXAM DESCRIPTION: CT - Abdomen Pelvis W Contrast - 08/19/2023 10:14 pm CLINICAL HISTORY: Abdominal pain hematochezia COMPARISON: May 2023 TECHNIQUE: Computed axial tomography of the abdomen pelvis was obtained. 100 cc Isovue-300 was admin istered intravenously. Oral contrast was not requested which limits evaluation of bowel and appendix All CT scans are performed using dose optimization technique as appropriate and may include automated exposure control or mA/KV adjustment according to patient size. FINDINGS: Cholecystectomy Vague low-density area within the liver is the sequela of previously described abscess. Spleen, pancreas, adrenal and kidneys appear unremarkable. There is no evidence of diverticulitis. Rectal wall is thickened. Normal appendix IMPRESSION: Rectal wall is thickened. This may be secondary to inflammation or mass
--- NOTE | 2023-08-19 23:43 | EDPHYS ---
Physician Documentation [facility] Name: Chang Carty Age: 58 yrs Sex: Male : 1965 Arrival Date: 08/19/2023 Time: 19:45 Bed 4 Private MD: ED Physician Yvonne Gray HPI: 08/18 20:35 This 58 yrs old Black Male presents to ER via Ambulatory with complaints of RECTAL cp BLEEDING. 20:35 The patient presents to the emergency department with rectal bleeding, a small amount, cp dark red blood with bowel movement on toilet paper, in toilet bowl, with multiple such episodes. Onset: The symptoms/episode began/occurred gradually, frequent over past 2-3 days. Abdominal pain: none is appreciated. Associated signs and symptoms: Pertinent positives: dizziness when standing, Pertinent negatives: chest pain, constipation, diarrhea, fever, shortness of breath, syncope, near-syncope, vomiting. Severity of symptoms: in the emergency department the symptoms are unchanged despite home interventions. 20:35 Patient reports taking daily Plavix and aspirin. Denies abdominal pain, denies pain cp with bowel movement. Reports noticing intermittent blood in stool for awhile, but over past several days noticed blood with each bowel movement and when passing gas. Historical: - Allergies: 20:02 PENICILLINS; jj7 20:02 tramadol; jj7 - PMHx: 20:02 CVA; L sided deficits; Diabetes - IDDM; Hypertension; jj7 - PSHx: 20:02 Cholecystectomy; LEFT ARM; LEFT KNEE; jj7 - Immunization history:: Client reports having NOT received the Covid vaccine. Flu vaccine is not up to date. - Social history:: Smoking status: Patient denies any tobacco usage or history of. Patient/guardian denies using alcohol, street drugs, IV drugs. ROS: 20:40 Constitutional: Negative for body aches, chills, fever, poor PO intake, cp 20:40 Eyes: Negative for injury, pain, redness, and discharge, cp 20:40 ENT: Negative for drainage from ear(s), ear pain, sore throat, difficulty swallowing, difficulty handling secretions, 20:40 Cardiovascular: Negative for chest pain, edema, palpitations, 20:40 Respiratory: Negative for cough, shortness of breath, wheezing, 20:40 Abdomen/GI: Positive for rectal bleeding, Negative for abdominal pain, vomiting, diarrhea, constipation, black/tarry stool, rectal pain, 20:40 Back: Negative for pain at rest, pain with movement, 20:40 Neuro: Positive for dizziness, Negative for altered mental status, syncope, near syncope, weakness, 20:40 All other systems are negative, Exam: 20:45 Constitutional: The patient appears in no acute distress, alert, awake, cp non-diaphoretic, non-toxic, well developed, well nourished, 20:45 Head/Face: Normocephalic, atraumatic. cp 20:45 Eyes: Periorbital structures: appear normal, Conjunctiva: normal, no exudate, no injection, Sclera: no appreciated abnormality, Lids and lashes: appear normal, bilaterally, 20:45 ENT: External ear(s): are unremarkable, Nose: is normal, Mouth: Lips: moist, Oral mucosa: pink and intact, moist, Posterior pharynx: is normal, airway is patent, no erythema, no exudate, 20:45 Chest/axilla: Inspection: normal, Palpation: is normal, no crepitus, no tenderness, 20:45 Cardiovascular: Rate: normal, Rhythm: regular, Edema: is not appreciated, JVD: is not appreciated, 20:45 Respiratory: the patient does not display signs of respiratory distress, Respirations: normal, no use of accessory muscles, no retractions, labored breathing, is not present, Breath sounds: are clear throughout, no decreased breath sounds, no stridor, no wheezing, 20:45 Abdomen/GI: Inspection: abdomen appears normal, Bowel sounds: active, all quadrants, Palpation: abdomen is soft and non-tender, in all quadrants, 20:45 Back: pain, is absent, ROM is normal, 20:45 Neuro: Orientation: to person, place \T\ time. Mentation: is normal, Motor: moves all fours, left side weakness from previous CVA, 20:50 ECG was reviewed by the Attending Physician. cp 22:00 : Rectal exam: Rectal tone: normal, Stool: brown, no obvious blood noted, cp Vital Signs: 19:57 BP 164 / 81; Pulse 77; Resp 16; Temp 98.4; Pulse Ox 100% ; Weight 108.86 kg; Height 6 jj7 ft. 3 in. ; Pain 0/10; 21:00 BP 140 / 68 LA Supine (auto/reg); Pulse 69; Pulse Ox 100% on R/A; cg3 21:02 BP 149 / 65 LA Sitting (auto/reg); Pulse 78; Pulse Ox 100% on R/A; cg3 21:03 BP 142 / 68 LA Standing (auto/reg); Pulse 76; Pulse Ox 100% on R/A; cg3 21:30 BP 147 / 60; Pulse 67; Resp 16; Pulse Ox 100% on R/A; cm10 22:30 BP 136 / 72; Pulse 66; Resp 16; Pulse Ox 100% on R/A; km8 23:00 BP 132 / 54; Pulse 66; Resp 16; Pulse Ox 100% on R/A; km8 08/19 00:07 BP 148 / 85; Pulse 68; Resp 16; Temp 98.5; Pulse Ox 98% ; bm8 08/18 19:57 Body Mass Index 30.00 (108.86 kg, 190.5 cm) [facility] 08/18 19:57 Pain Scale: Adult [facility] [place] Coma Score: 08/18 20:12 Eye Response: spontaneous(4). Motor Response: obeys commands(6). Verbal Response: km8 oriented(5). Total: 15. MDM: 20:09 Patient medically screened. cp 21:00 Differential diagnosis: gastritis, diverticulitis, hemorrhoids, anemia. cp 22:48 Data reviewed: vital signs, nurses notes, lab test result(s), EKG, radiologic studies, cp CT scan, plain films. Consideration of Admission/Observation Escalation of care including admission/observation considered. Independent interpretation of the following test(s) in the Emergency Department EKG: See my EKG interpretation above. ED course: discussed results of today's testing. no gross blood noted on rectal exam and/or external hemorrhoids. VSS. Hemoglobin improved from previous test on 06-13-2023 here in this ED. Patient declined admission and continued monitoring and would like to f/u outpatient with GI. 08/18 20:29 Order name: Basic Metabolic Panel; Complete Time: 22:00 cp 08/18 22:00 Interpretation: Normal except: CL 108; GLUC 212; GFR 83; CA 8.2. cp 08/18 20:29 Order name: CBC with Diff; Complete Time: 21:29 cp 08/18 21:29 Interpretation: Normal except: RBC 3.89; HGB 9.4; HCT 29.8; MCV 76.5; MCH 24.2; MCHC cp 31.6; RDW 17.0. 08/18 20: Order name: LFT's; Complete Time: 22:00 cp 08/18 22:00 Interpretation: Normal except: ALB 3.1; GLOB 3.6; A/G 0.9. cp 08/18 20:29 Order name: Magnesium; Complete Time: 22:00 cp 08/18 20:29 Order name: NT PRO-BNP; Complete Time: 22:00 cp 08/18 20:29 Order name: PT-INR; Complete Time: : cp 08/18 20: Order name: Troponin HS; Complete Time: 22:00 cp 08/18 20:29 Order name: Type And Screen; Complete Time: 22:00 cp 08/18 20:29 Order name: Ptt, Activated; Complete Time: 21: cp 08/18 20: Order name: XRAY Chest (1 view); Complete Time: 22:35 cp 08/18 22:35 Interpretation: Report review. cp 08/18 20:29 Order name: CT Abd/Pelvis - IV Contrast Only; Complete Time: 22:35 cp 08/18 20:29 Order name: EKG; Complete Time: 20:30 cp 08/18 20:29 Order name: Orthostatic Blood Pressure; Complete Time: 21:10 cp 08/18 20:29 Order name: Cardiac monitoring; Complete Time: 20:47 cp 08/18 20:29 Order name: EKG - Nurse/Tech; Complete Time: 20:47 cp 08/18 20:29 Order name: IV Saline Lock; Complete Time: 20:47 cp 08/18 20:29 Order name: Labs collected and sent; Complete Time: 20:47 cp 08/18 20:29 Order name: O2 Per Protocol; Complete Time: 20:47 cp 08/18 20:29 Order name: O2 Sat Monitoring; Complete Time: 20:47 cp EC:50 Rate is 69 beats/min. Rhythm is regular. ID interval is normal. QRS interval is normal. cp QT interval is normal. T waves are Inverted in lead aVR. Interpreted by me. Reviewed by me. Administered Medications: 23:20 Drug: metroNIDAZOLE IVPB 500 mg 100 ml IVPB once over 30 mins Volume: 100 ml; Route: km8 IVPB; Infused Over: 30 mins; Site: right antecubital; 23:50 Follow up: Response: No adverse reaction; IV Status: Completed infusion; IV Intake: km8 100ml 23:22 Drug: Ciprofloxacin PO 500 mg PO once Route: PO; km8 23:58 Follow up: Response: No adverse reaction km8 Disposition Summary: 08/19/23 23:42 Discharge Ordered Notes: Location: Home cp Problem: new cp Symptoms: have improved cp Condition: Stable cp Diagnosis - GI Bleed/ Gastrointestinal hemorrhage, unspecified cp - Proctitis cp Followup: cp - With: Sanford Jaime MD - When: 2 - 3 days - Reason: Recheck today's complaints Discharge Instructions: - Discharge Summary Sheet cp - Gastrointestinal Bleeding cp - Rectal Bleeding cp - Proctitis cp Forms: - Medication Reconciliation Form cp - Thank You Letter cp - Antibiotic Education cp - Prescription Opioid Use cp - Patient Portal Instructions cp - Leadership Thank You Letter cp Prescriptions: - Zofran 4 mg Oral Tablet - take 1 tablet ORAL route every 12 hours As needed; 20 tablet; Refills: 0, cp Product Selection Permitted - Cipro 500 mg Oral tablet - take 1 tablet ORAL route every 12 hours for 10 days; 20 tablet; Refills: 0, cp Product Selection Permitted - Metronidazole 500 mg Oral Tablet - take 1 tablet ORAL route every 8 hours; 30 tablet; Refills: 0, Product cp Selection Permitted Signatures: Dispatcher [employer] EDAL Delroy Brice PA PA cp Johnson, Juwairiyah RN RN jj7 Kasey Alexander RN RN km8 Corrections: (The following items were deleted from the chart) 08/19 18:25 08/18 22:48 ED course: discussed results of today's testing. VSS. Patient declined cp admission and continued monitoring and would like to f/u outpatient with GI. cp
--- NOTE | 2023-08-19 23:43 | ER ---
Nurse's Notes [facility] Name: Chang Carty Age: 58 yrs Sex: Male : 1965 Arrival Date: 08/19/2023 Time: 19:45 Bed 4 Private MD: Diagnosis: GI Bleed/ Gastrointestinal hemorrhage, unspecified;Proctitis Presentation: 08/18 19:57 Chief complaint: Patient states: HEMORRHOIDS. HAVING BLOODY STOOLS, BLOOD WHEN HE jj7 PASSES GAS. STATES TODAY HE HAD AN EPISODE OF DIZZINESS. Coronavirus screen: At this time, the client does not indicate any symptoms associated with coronavirus-19. Ebola Screen: No symptoms or risks identified at this time. Initial Sepsis Screen: Does the patient meet any 2 criteria? No. Patient's initial sepsis screen is negative. Does the patient have a suspected source of infection? No. Patient's initial sepsis screen is negative. Risk Assessment: Do you want to hurt yourself or someone else? Patient reports no desire to harm self or others. 19:57 Method Of Arrival: Ambulatory [facility] 19:57 Acuity: NEYMAR 3 j7 20:14 Onset of symptoms was August 16, 2023. km8 Triage Assessment: 20:02 General: Appears in no apparent distress. comfortable, Behavior is calm, cooperative, jj7 appropriate for age. Pain: Denies pain. GI: Reports rectal bleeding, bloody stool. Historical: - Allergies: 20:02 PENICILLINS; jj7 20:02 tramadol; jj7 - PMHx: 20:02 CVA; L sided deficits; Diabetes - IDDM; Hypertension; jj7 - PSHx: 20:02 Cholecystectomy; LEFT ARM; LEFT KNEE; jj7 - Immunization history:: Client reports having NOT received the Covid vaccine. Flu vaccine is not up to date. - Social history:: Smoking status: Patient denies any tobacco usage or history of. Patient/guardian denies using alcohol, street drugs, IV drugs. Screenin:04 [facility] ED Fall Risk Assessment (Adult) History of falling in the last 3 months, jj7 including since admission No falls in past 3 months (0 pts) Confusion or Disorientation No (0 pts) Intoxicated or Sedated No (0 pts) Impaired Gait Yes (1 pt) Mobility Assist Device Used Yes (1 pt) Altered Elimination No (0 pt) Score/Fall Risk Level 0 - 2 = Low Risk Oriented to surroundings, Maintained a safe environment, Educated pt \T\ family on fall prevention, incl call for assistance when getting out of bed. Abuse screen: Denies threats or abuse. Nutritional screening: No deficits noted. Tuberculosis screening: No symptoms or risk factors identified. Assessment: 20:12 General: Appears in no apparent distress. comfortable, Behavior is calm, cooperative, km8 appropriate for age. Pain: Denies pain. Neuro: Level of Consciousness is awake, alert, obeys commands, Oriented to person, place, time, situation, Reports dizziness. Cardiovascular: Denies chest pain, shortness of breath, Patient's skin is warm and dry. Respiratory: Airway is patent Respiratory effort is even, unlabored, Respiratory pattern is regular, symmetrical. GI: No signs and/or symptoms were reported involving the gastrointestinal system. : No signs and/or symptoms were reported regarding the genitourinary system. EENT: No signs and/or symptoms were reported regarding the EENT system. Derm: No signs and/or symptoms reported regarding the dermatologic system. Skin is intact, is healthy with good turgor, Skin is dry, Skin is pink, warm \T\ dry. normal, Skin temperature is warm. Musculoskeletal: No signs and/or symptoms reported regarding the musculoskeletal system. Range of motion: intact in all extremities. 21:45 Reassessment: Patient appears in no apparent distress at this time. No changes from km8 previously documented assessment. Patient and/or family updated on plan of care and expected duration. Pain level reassessed. Patient is alert, oriented x 3, equal unlabored respirations, skin warm/dry/pink. 22:20 Reassessment: Patient appears in no apparent distress at this time. No changes from km8 previously documented assessment. Patient and/or family updated on plan of care and expected duration. Pain level reassessed. Patient is alert, oriented x 3, equal unlabored respirations, skin warm/dry/pink. 23:22 Reassessment: Patient appears in no apparent distress at this time. No changes from km8 previously documented assessment. Patient and/or family updated on plan of care and expected duration. Pain level reassessed. Patient is alert, oriented x 3, equal unlabored respirations, skin warm/dry/pink. 23:57 Reassessment: Patient appears in no apparent distress at this time. No changes from km8 previously documented assessment. Patient and/or family updated on plan of care and expected duration. Pain level reassessed. Patient is alert, oriented x 3, equal unlabored respirations, skin warm/dry/pink. Vital Signs: 19:57 BP 164 / 81; Pulse 77; Resp 16; Temp 98.4; Pulse Ox 100% ; Weight 108.86 kg; Height 6 jj7 ft. 3 in. ; Pain 0/10; 21:00 BP 140 / 68 LA Supine (auto/reg); Pulse 69; Pulse Ox 100% on R/A; cg3 21:02 BP 149 / 65 LA Sitting (auto/reg); Pulse 78; Pulse Ox 100% on R/A; cg3 21:03 BP 142 / 68 LA Standing (auto/reg); Pulse 76; Pulse Ox 100% on R/A; cg3 21:30 BP 147 / 60; Pulse 67; Resp 16; Pulse Ox 100% on R/A; cm10 22:30 BP 136 / 72; Pulse 66; Resp 16; Pulse Ox 100% on R/A; km8 23:00 BP 132 / 54; Pulse 66; Resp 16; Pulse Ox 100% on R/A; km8 08/19 00:07 BP 148 / 85; Pulse 68; Resp 16; Temp 98.5; Pulse Ox 98% ; bm8 08/18 19:57 Body Mass Index 30.00 (108.86 kg, 190.5 cm) [facility] 08/18 19:57 Pain Scale: Adult [facility] [place] Coma Score: 08/18 20:12 Eye Response: spontaneous(4). Motor Response: obeys commands(6). Verbal Response: km8 oriented(5). Total: 15. ED Course: 19:51 Patient arrived in ED. es 19:57 Delroy Brice PA is PHCP. cp 19:57 Yvonne Gray MD is Attending Physician. cp 20:02 Triage completed. 7 20:02 Arm band placed on right wrist. [facility] 20:12 Kasey Alexander, RN is Primary Nurse. [facility] 20:12 Patient has correct armband on for positive identification. Placed in gown. Bed in low km8 position. Call light in reach. Side rails up X 1. monitoring analyst on. Pulse ox on. Warm blanket given. 20:12 Patient maintains SpO2 saturation greater than 95% on room air. km8 20:47 Ptt, Activated Sent. km8 20:47 Type And Screen Sent. km8 20:48 Basic Metabolic Panel Sent. km8 20:48 CBC with Diff Sent. km8 20:48 LFT's Sent. km8 20:48 Magnesium Sent. km8 20:48 NT PRO-BNP Sent. km8 20:48 PT-INR Sent. km8 20:48 Troponin HS Sent. km8 20:48 Initial lab(s) drawn, by me, sent to lab. EKG done, by ED staff, reviewed by Delroy Brice km8 PA. Inserted saline lock: 20 gauge in right antecubital area, using aseptic technique. Blood collected. 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 km8 21:22 XRAY Chest (1 view) In Process Unspecified. EDMS 22:15 CT Abd/Pelvis - IV Contrast Only In Process Unspecified. EDMS 22:[address] back from [address]. km8 23:40 Sanford Jaime MD is Referral Physician. cp 23:57 Provided Education on: D/C TEACHING. km8 23:58 IV discontinued, intact, bleeding controlled, No redness/swelling at site. Pressure km8 dressing applied. Administered Medications: 23:20 Drug: metroNIDAZOLE IVPB 500 mg 100 ml IVPB once over 30 mins Volume: 100 ml; Route: km8 IVPB; Infused Over: 30 mins; Site: right antecubital; 23:50 Follow up: Response: No adverse reaction; IV Status: Completed infusion; IV Intake: km8 100ml 23:22 Drug: Ciprofloxacin PO 500 mg PO once Route: PO; km8 23:58 Follow up: Response: No adverse reaction km8 Medication: 20:14 VIS not applicable for this client. km8 Intake: 23:50 IV: 100ml; Total: 100ml. km8 Outcome: 23:42 Discharge ordered by . cp 23:58 Discharged to home via wheelchair, with significant other, km8 23:58 Condition: good 23:58 Discharge instructions given to patient, significant other, Instructed on discharge instructions, follow up and referral plans. medication usage, Demonstrated understanding of instructions, follow-up care, medications, Prescriptions given X 3, 08/19 00:10 Patient left the ED. km8 Signatures: Dispatcher [employer] EDChristine Quach Corey, PA PA cp Johnson, Juwairiyah, RN RN jj7 Catherine Edwards RN RN cm10 Michelle Camarena 3 Kasey Alexander RN RN km8 Niraj An RN RN bm8
[2023-08-20 00:39] VITALS: BP 145/90; TEMP 98.2; O2SAT 100
--- NOTE | 2023-08-20 17:03 | EKG ---
Test Date: 2023-08-19 Test Time: 19:44:07 Driver Utility Worker: TOMA MEASUREMENT RESULTS: Intervals: Rate: 69 VA: 174 QRSD: 86 QT: 400 QTc: 428 [place]: P: 61 VA: 174 QRS: -49 T: 63 INTERPRETIVE STATEMENTS: Normal sinus rhythm Left anterior fascicular block Abnormal ECG Compared to ECG 06/12/2023 19:08:39 ST (T wave) deviation no longer present Electronically Signed On 08-20-23 17:00:24 CDT by Ashu Baeza
== END ==
LOC: ER 19:45
DX: K62.89 Other specified diseases of anus and rectum (principal); I10 Essential (primary) hypertension; Z88.0 Allergy status to penicillin; Z88.5 Allergy status to narcotic agent; Z28.310 Unvaccinated for COVID-19
CPT/HCPCS: 96365; 93005; 85025; 80048; 36415; 86900; 83735; 86850; 85610; 86901; 80076; 85730; 84484; 83880; 74177; 71045; 99285; Q9967